=== PATIENT | female | born 1940 | race Caucasian/White ===

== ENCOUNTER → 2016-10-29 | Outpatient (CLI) | payer MEDICARE, MEDICAID ==
[2016-10-29 13:53] LABS: ARTERIAL BLOOD BASE EXCESS 4.9 mmol/L; ARTERIAL BLOOD O2 SATURATION 81.7 % (94-98)
--- NOTE | 2016-10-30 08:27 | INCOMPLETE PFT LETTER ---
On 10/29/16, PAN BUTLER : 1940 presented to [facility] for a Pulmonary Function Test. Attempts were made to perform the test but the patient was unable to perform adequately due to patient unable to sit upright because of broken leg. ABG was drawn. Patient short of breath and unable to complete study. Please feel free to contact us for any further questions and to reschedule if desired. Sincerely, Respiratory Care Department [facility]
== END ==
LOC: RT 12:40
PROVIDERS: ATTEND Family Medicine Geriatric Medicine
DX: J44.9 Chronic obstructive pulmonary disease, unspecified (principal)
CPT/HCPCS: 36600; 82803; 94760

== ENCOUNTER 2017-11-23 05:06 | Inpatient (IN) | payer MEDICARE, MEDICAID ==
--- NOTE | 2017-11-23 05:30 | ER Document Report ---
ED Medical Screen (RME) - General Stated Complaint: SHORTNESS OF BREATH Time Seen by Provider: 11/23/17 05:18 Mode of Arrival: Medic Information source: Patient, Transfer Record Notes: Patient presents as a transfer from the [place] [facility] with report of low oxygen saturation of 80%. Patient states she has had a cough for the past month. Patient does have a history of asthma and COPD. She reports recent decrease in appetite. Patient was given nebulizer treatment and Solu-Medrol per EMS. Patient oxygen saturation in the the lower 90s on 3 L of oxygen at this time. hx: CVA with left-sided weakness, depression, diabetes, COPD, asthma I have greeted and performed a rapid initial assessment of this patient. A comprehensive ED assessment and evaluation of the patient, analysis of test results and completion of the medical decision making process will be conducted by additional ED providers. TRAVEL OUTSIDE OF THE [place] IN LAST 30 DAYS: No - Related Data Allergies/Adverse Reactions: Penicillins Allergy (Verified 01/31/15 18:27) Past Medical History - Past Medical History Cardiac Medical History: Reports: Hx Atrial Fibrillation - paroxysmal reportedly , Hx Hypercholesterolemia, Hx Hypertension Pulmonary Medical History: Reports: Hx Asthma, Hx COPD Neurological Medical History: Reports: Hx Cerebrovascular Accident - Left-sided weakness Endocrine Medical History: Reports: Hx Diabetes Mellitus Type 2 GI Medical History: Reports: Hx Gastroesophageal Reflux Disease Musculoskeltal Medical History: Reports Hx Musculoskeletal Trauma Psychiatric Medical History: Reports: Hx Anxiety, Hx Dementia, Hx Depression, Hx Schizophrenia Traumatic Medical History: Reports: Hx Fractures Past Surgical History: Reports: Hx Appendectomy, Hx Cholecystectomy, Hx Genitourinary Surgery - Bladder mesh, Hx Gynecologic Surgery - vaginal prolapse , Hx Tonsillectomy - Immunizations Hx Diphtheria, Pertussis, Tetanus Vaccination: Yes Physical Exam - Respiratory Respiratory status: No respiratory distress Breath sounds: Nonproductive cough, Rhonchi, Wheezing
[2017-11-23] MEDS: ALBUTEROL SULFATE 0.083% NEB 2.5 MG/3 ML AMPUL NEB SCH ×2 (05:47→06:27)
[2017-11-23] MEDS ORDERED: IPRATROPIUM/ALBUTEROL 0.5-2.5 MG/3 ML AMPUL NEB ONE (06:10)
[2017-11-23] MEDS ORDERED: METHYLPREDNISOLONE INJ 40 MG/1 ML SDV IV ONE (06:10)
--- NOTE | 2017-11-23 06:17 | ER Document Report ---
ED General - General Stated Complaint: SHORTNESS OF BREATH Time Seen by Provider: 11/23/17 05:18 Mode of Arrival: Medic Notes: 77-year-old lady with a history of CHF hypertension chronic respiratory failure and recent admissions for acute respiratory failure in the setting of pneumonia living at [facility] presenting with cough shortness of breath and body aches. This is been going on for 2 days. Her baseline oxygen of 2.5 L with a insufficient to maintain her saturations and so she was sent to the ED. She denies fever chills. There is flu rampant at her facility and she is currently taking empiric/prophylactic Tamiflu. TRAVEL OUTSIDE OF THE [place] IN LAST 30 DAYS: No - Related Data Allergies/Adverse Reactions: Penicillins Allergy (Verified 01/31/15 18:27) Past Medical History - General Information source: Patient, Transfer Record - Social History Smoking Status: Former Smoker Family History: Reviewed & Not Pertinent - Past Medical History Cardiac Medical History: Reports: Hx Atrial Fibrillation - paroxysmal reportedly , Hx Hypercholesterolemia, Hx Hypertension Pulmonary Medical History: Reports: Hx Asthma, Hx COPD Neurological Medical History: Reports: Hx Cerebrovascular Accident - Left-sided weakness Endocrine Medical History: Reports: Hx Diabetes Mellitus Type 2 GI Medical History: Reports: Hx Gastroesophageal Reflux Disease Musculoskeltal Medical History: Reports Hx Musculoskeletal Trauma Psychiatric Medical History: Reports: Hx Anxiety, Hx Dementia, Hx Depression, Hx Schizophrenia Traumatic Medical History: Reports: Hx Fractures Past Surgical History: Reports: Hx Appendectomy, Hx Cholecystectomy, Hx Genitourinary Surgery - Bladder mesh, Hx Gynecologic Surgery - vaginal prolapse , Hx Tonsillectomy - Immunizations Hx Diphtheria, Pertussis, Tetanus Vaccination: Yes Hx Pneumococcal Vaccination: 10/26/13 Review of Systems - Review of Systems Notes: REVIEW OF SYSTEMS GEN: Was weakness ENT: Denies sore throat, nasal discharge, ear pain EYES: Denies blurry vision, eye pain, discharge CV: Denies chest pain, palpitations, edema RESP: Productive cough wheezing and shortness of breath GI: Denies abdominal pain, nausea, vomiting, diarrhea MSK: Denies joint pain/swelling, edema, SKIN: Denies rash, skin lesions LYMPH: Denies swollen glands/lymph nodes NEURO: Denies headache, focal weakness or numbness, dizziness PSYCH: Denies depression, suicidal or homicidal ideation PHYSICAL EXAMINATION General: Obese. Chronically ill. Mild distress. Head: Atraumatic, normocephalic ENT: Mouth normal, oropharynx moist, no exudates or tonsillar enlargement Eyes: Conjunctiva normal, pupils equal, lids normal Neck: No JVD, supple, no guarding CVS: Normal rate, regular rhythm, no murmurs Resp: Mild respiratory distress. Saturation 89 on Venturi mask. Wheezes and rhonchi in all lung more. GI: Nondistended, soft, no tenderness to palpation, no rebound or guarding Ext: No deformities, leg obesity with chronic appearing edema, normal range of motion in upper and lower ext Back: No CVA or midline TTP Skin: No rash, warm Lymphatic: No lymphadeopathy noted Neuro: Awake, alert. Face symmetric. GCS 15. Physical Exam - Vital signs Vitals: Pulse Ox 94 11/23/17 05:13 Course - Re-evaluation Re-evalutation: 11/23/17 06:15 77-year-old female with chronic respiratory failure presents with worsening oxygen saturations cough and shortness of breath concerning for pneumonia, flu, both, sepsis, COPD exacerbation. Patient placed on Venturi mask. Seen by me soon after arrival to the room and rapid medical eval by physician central supply assistant. Sepsis order had been placed. I will add antibiotics. I will add DuoNeb and steroids. Her blood pressure and heart rate are stable. Her ECG does not show acute changes. 11/23/17 06:16 Please note: The patient is unaware of her CODE STATUS however based on previous documentation for admission she was DNR. This was after discussion with her son. In looking at her paperwork from her facility there is not a CODE STATUS documented. After chest x-ray will likely proceed with BiPAP for respiratory support. 11/23/17 06:44 Patient reassessed. Still hypoxic. Her VBG shows CO2 in the 90s range. Her chest x-ray looks like slight CHF although there is no definite infiltrate or effusion. I will place her on BiPAP, antibiotics have been ordered, and admit to the hospitalist for presumable early pneumonia/COPD plus or minus influenza. 11/23/17 07:26 Flu swab pending. Better on BiPAP. Admitted spoke with Dr. Woodward. IMCU. - Vital Signs Vital signs: Temp Pulse Resp BP Pulse Ox 98.5 F 76 16 150/57 H 94 11/23/17 05:26 11/23/17 05:26 11/23/17 07:00 11/23/17 05:37 11/23/17 07:00 - Laboratory Result Diagrams: 11/23/17 06:15 11/23/17 06:15 Laboratory results interpreted by me: 11/23/17 11/23/17 11/23/17 06:15 06:15 06:15 MCV 99 H MCHC 31.9 L RDW 14.2 H Seg Neutrophils % 79.8 H Lymphocytes % 12.5 L VBG pH 7.27 L VBG pCO2 93.4 H* VBG HCO3 42.1 H Chloride 96 L Carbon Dioxide 37 H Creatinine 0.48 L Glucose 144 H Creatine Kinase < 20 L Total Protein 6.0 L Albumin 3.3 L - EKG Interpretation by Me EKG shows normal: Sinus rhythm Rate: Normal Rhythm: NSR [place]/QRS: RBBB When compared to previous EKG there are: No significant change Critical Care Note - Critical Care Note Total time excluding time spent on procedures (mins): 32 - The above patient is critically ill. Not including procedures, but including direct re-evaluations, speaking with patient and/or consultants, interpreting results, and documenting , I spent the total amount of minute listed listed above on critical care time Discharge - Discharge Clinical Impression: Acute respiratory failure Qualifiers: Respiratory failure complication: hypercapnia Qualified Code(s): J96.02 - Acute respiratory failure with hypercapnia Condition: Critical Disposition: ADMITTED INPATIENT Admitting Provider: Hospitalist Unit Admitted: [facility]
[2017-11-23] MEDS ORDERED: VANCOMYCIN HCL INJ 1000 MG VIAL IV ONE (06:18)
[2017-11-23] MEDS ORDERED: OSELTAMIVIR PHOSPHATE 75 MG CAPSULE PO ONE (06:18)
[2017-11-23 06:28] LABS: ABSOLUTE LYMPHOCYTES (AUTO) 0.5 10^3/uL (0.5-4.7); ABSOLUTE MONOCYTES (AUTO) 0.3 10^3/uL (0.1-1.4); ABSOLUTE NEUT (AUTO) 3.2 10^3/uL (1.7-8.2); BASOPHILS % (AUTO) 0.3 % (0-2); EOSINOPHILS % (AUTO) 0.1 % (0-6); HEMATOCRIT 44.8 % (36.0-47.0); HEMOGLOBIN 14.3 g/dL (12.0-15.5); LYMPHOCYTES % (AUTO) 12.5 % (13-45); MEAN CORPUSCULAR HEMOGLOBIN 31.5 pg (27.0-33.4); MEAN CORPUSCULAR HGB CONC 31.9 g/dL (32.0-36.0); MEAN CORPUSCULAR VOLUME 99 fl (80-97); MONOCYTES % (AUTO) 7.3 % (3-13); PLATELET COUNT 163 10^3/uL (150-450); RED BLOOD COUNT 4.54 10^6/uL (3.72-5.28); RED CELL DISTRIBUTION WIDTH 14.2 % (11.5-14.0); SEGMENTED NEUTROPHILS % (AUTO) 79.8 % (42-78); TOTAL CELLS COUNTED % (AUTO) 100 %; VENOUS BLOOD HCO3 42.1 mmol/L (20-32); VENOUS BLOOD PH 7.27 (7.30-7.42)
[2017-11-23 06:34] LABS: VENOUS BLOOD PCO2 93.4 mmHg (35-63)
[2017-11-23 06:50] LABS: NT PRO BNP 79 pg/mL (<450)
[2017-11-23 06:52] LABS: ALANINE AMINOTRANSFERASE 26 U/L (9-52); ALBUMIN 3.3 g/dL (3.5-5.0); ALKALINE PHOSPHATASE 72 U/L (38-126); ANION GAP 6 (5-19); ASPARTATE AMINO TRANSFERASE 25 U/L (14-36); BILIRUBIN,DIRECT 0.3 mg/dL (0.0-0.4); BILIRUBIN,TOTAL 0.5 mg/dL (0.2-1.3); BLOOD UREA NITROGEN 15 mg/dL (7-20); CALCIUM 9.3 mg/dL (8.4-10.2); CARBON DIOXIDE 37 mmol/L (22-30); CHLORIDE 96 mmol/L (98-107); GLUCOSE 144 mg/dL (75-110); MAGNESIUM 1.9 mg/dL (1.6-2.3); POTASSIUM 4.2 mmol/L (3.6-5.0); SODIUM 139.2 mmol/L (137-145)
--- NOTE | 2017-11-23 06:52 | RADIOLOGY REPORT (SQ) ---
EXAM DESCRIPTION: CHEST SINGLE VIEW CLINICAL HISTORY: cough COMPARISON: 03/24/2015 FINDINGS: Single frontal view of the chest. Atherosclerotic calcification aortic arch. Cardiomegaly. Linear right basilar opacities likely related to subsegmental atelectasis. Blunting of the left costophrenic angle may represent small left pleural effusion. Leads overlie the chest. No new osseous abnormalities. Upper abdominal soft tissues are unremarkable. IMPRESSION: 1. Cardiomegaly with possible small left pleural effusion. 2. Streaky right basilar opacities may be related to subsegmental atelectasis however developing pneumonic process could produce a similar appearance. Continued radiographic follow-up to resolution recommended.
[2017-11-23 06:53] LABS: CREATINE KINASE < 20 U/L (30-135)
[2017-11-23 06:55] LABS: CREATINE KINASE MB < 0.22 ng/mL (<4.55); TROPONIN I < 0.012 ng/mL
[2017-11-23] MEDS ORDERED: LEVOFLOXACIN 750 MG/D5W RTU 750 MG/150 ML RTUPB IV SCH (07:00)
[2017-11-23] MEDS ORDERED: DEXTROSE 50%-WATER 25 GM/50 ML DISP.SYRIN IV PRN ×2 (09:39)
[2017-11-23] MEDS ORDERED: ONDANSETRON 4 MG TAB.RAPDIS PO PRN ×2 (09:39→10:33)
[2017-11-23] MEDS ORDERED: ONDANSETRON HCL INJ/PF 4 MG/2 ML SDV IV PRN (09:39)
[2017-11-23] MEDS ORDERED: DEXTROSE 40% GEL 15 GM TUBE PO PRN ×2 (09:39)
[2017-11-23] MEDS ORDERED: GLUCAGON,HUMAN RECOMB 1 MG INJ SUBCUT PRN (09:39)
--- NOTE | 2017-11-23 10:08 | PDOC H&P ---
History of Present Illness Admission Date/PCP: 11/23/17 07:40 SAMMI VAZQUEZ MD Patient complains of: Shortness of breath. History of Present Illness: PAN BUTLER is a 77 year old female resents to the emergency room from [place] with complaint of cough and shortness of breath. Patient reports that she has been sick for the last 2-3 days. Patient is not able to give very good history however the ED states that patient was not able to maintain sats in the emergency department and they had to place her on BiPAP. ED also reported at [place] majority of the patients are receiving Tamiflu for the flu or for flu prevention. Patient did state that she is having body aches. Past Medical History Cardiac Medical History: Reports: Atrial Fibrillation - paroxysmal reportedly, Hyperlipidema, Hypertension Pulmonary Medical History: Reports: Asthma, Chronic Obstructive Pulmonary Disease (COPD) Endocrine Medical History: Reports: Diabetes Mellitus Type 2 GI Medical History: Reports: Gastroesophageal Reflux Disease Psychiatric Medical History: Reports: Dementia, Depression Past Surgical History Past Surgical History: Reports: Appendectomy, Cholecystectomy, Tonsillectomy Social History Smoking Status: Former Smoker Frequency of Alcohol Use: None Hx Recreational Drug Use: No Hx Prescription Drug Abuse: No Family History Family History: Reviewed & Not Pertinent Parental Family History Reviewed: No Children Family History Reviewed: No Sibling(s) Family History Reviewed.: No Medication/Allergy Home Medications: Acetaminophen [Tylenol Extra Strength] 1,000 mg PO Q8HP PRN 11/23/17 Amiodarone HCl [Cordarone 200 mg Tablet] 200 mg PO DAILY 11/23/17 Apixaban [Eliquis 2.5 mg Tablet] 2.5 mg PO Q12 11/23/17 Atorvastatin Calcium [Lipitor 20 mg Tablet] 20 mg PO QHS 11/23/17 Cyanocobalamin (Vitamin B-12) [Vitamin B12] 1,000 mcg PO DAILY 11/23/17 Docusate Sodium [Colace 100 mg Capsule] 100 mg PO BID 11/23/17 Donepezil HCl [Aricept 5 mg Tablet] 10 mg PO QHS 11/23/17 Gabapentin [Neurontin 100 mg Capsule] 100 mg PO Q8 11/23/17 Hydrocodone/Acetaminophen [[place] 10-325 mg Tablet] 1 tab PO Q4HP PRN 11/23/17 Ipratropium/Albuterol Sulfate [Duoneb 3 ml Ampul] 3 ml NEB RTQ6HP PRN 11/23/17 Lorazepam [Ativan 0.5 mg Tablet] 0.5 mg PO Q6HP PRN 11/23/17 Magnesium Oxide [Mag-Ox 400 mg Tablet] 400 mg PO Q8 11/23/17 Multivitamin [Multivitamins] 1 each PO DAILY 11/23/17 Olopatadine HCl [Pataday] 2.5 ml OU DAILY 11/23/17 Ondansetron HCl [Zofran 4 mg Tablet] 1 tab PO Q8HP PRN 11/23/17 Oseltamivir Phosphate [Tamiflu 75 mg Capsule] 75 mg PO DAILY 11/23/17 Pantoprazole Sodium [Protonix] 40 mg PO DAILY 11/23/17 Quetiapine Fumarate [Seroquel 25 mg Tablet] 25 mg PO QHS 11/23/17 Sennosides [Senna] 8.6 mg PO QHS 11/23/17 Allergies/Adverse Reactions: Penicillins Allergy (Verified 01/31/15 18:27) Review of Systems ROS unobtainable: Other - Patient very weak therefore review of symptoms is limited Constitutional: PRESENT: chills, fever(s), weakness Eyes: ABSENT: visual disturbances Respiratory: PRESENT: cough, dyspnea Gastrointestinal: ABSENT: abdominal pain, constipation, diarrhea, hematemesis, hematochezia, nausea, vomiting Genitourinary: ABSENT: dysuria, hematuria Musculoskeletal: ABSENT: joint swelling Physical Exam Vital Signs: Temp Pulse Resp BP Pulse Ox 98.5 F 76 16 150/57 H 94 11/23/17 05:26 11/23/17 05:26 11/23/17 07:00 11/23/17 05:37 11/23/17 07:00 General appearance: PRESENT: morbidly obese, well-developed, well-nourished, other - BiPap in place patient will open eyes when stimulated Head exam: PRESENT: atraumatic, normocephalic Eye exam: PRESENT: conjunctiva pink, EOMI. ABSENT: scleral icterus Ear exam: PRESENT: normal external ear exam Mouth exam: PRESENT: other - BiPAP in place Neck exam: ABSENT: carotid bruit, JVD, lymphadenopathy, thyromegaly Respiratory exam: PRESENT: accessory muscle use, decreased breath sounds, prolonged expiratory phas, wheezes. ABSENT: rales, rhonchi Cardiovascular exam: PRESENT: RRR. ABSENT: diastolic murmur, rubs, systolic murmur Pulses: PRESENT: normal dorsalis pedis pul Vascular exam: PRESENT: normal capillary refill GI/Abdominal exam: PRESENT: normal bowel sounds, soft. ABSENT: distended, guarding, mass, organolmegaly, rebound, tenderness Rectal exam: PRESENT: deferred Extremities exam: PRESENT: +2 edema - +2 pitting edema of left leg, +1 pitting edema of right leg Neurological exam: PRESENT: awake, oriented to person, oriented to place, oriented to time, oriented to situation, CN II-XII grossly intact Psychiatric exam: PRESENT: appropriate affect, normal mood. ABSENT: homicidal ideation, suicidal ideation Skin exam: PRESENT: dry, intact, warm. ABSENT: cyanosis, rash Results Impressions: Chest X-Ray 11/23/17 05:27 IMPRESSION: 1. Cardiomegaly with possible small left pleural effusion. 2. Streaky right basilar opacities may be related to subsegmental atelectasis however developing pneumonic process could produce a similar appearance. Continued radiographic follow-up to resolution recommended. Assessment & Plan - Diagnosis (1) Acute respiratory failure Qualifiers: Respiratory failure complication: hypercapnia Qualified Code(s): J96.02 - Acute respiratory failure with hypercapnia Is this a current diagnosis for this admission?: Yes Plan: Most likely secondary to viral illness with component of COPD: We will place patient on steroids, breathing treatments, and cefepime. Will obtain CT of chest to evaluate for pneumonia given the fact that chest x-ray is suggesting that patient could have possible infiltrate. (2) Atrial fibrillation Qualifiers: Atrial fibrillation type: chronic Qualified Code(s): I48.2 - Chronic atrial fibrillation Is this a current diagnosis for this admission?: No Plan: We will continue patient's home medications. (3) COPD exacerbation Is this a current diagnosis for this admission?: Yes Plan: We will place on breathing treatments, steroids, and antibiotics. Will obtain chest x-ray to evaluate for possible pneumonia given the report of chest x-ray demonstrating possible infiltrate. Of note infiltrate still could represent viral illness. Will screen patient for flu (4) Pneumonia Qualifiers: Laterality: right Is this a current diagnosis for this admission?: Yes Plan: We will place patient on cefepime for now. Will screen for MRSA. Aware the patient is coming from [place] which would place her at higher risk for nosocomial acquired infections (5) DVT prophylaxis Is this a current diagnosis for this admission?: Yes Plan: SCDs - Time Time Spent: 30 to 50 Minutes
[2017-11-23] MEDS ORDERED: (PENDING PHARMACY ID) (Acetaminophen [Tylenol Extra Strength] 1,000 MG) PO PRN (10:13)
[2017-11-23] MEDS: FAMOTIDINE 20 MG TABLET PO SCH ×2 (10:18→23:16)
[2017-11-23] MEDS ORDERED: ACETAMINOPHEN 325 MG TABLET PO PRN (10:22)
--- NOTE | 2017-11-23 12:52 | EKG REPORT ---
SEVERITY:- ABNORMAL ECG - SINUS RHYTHM RIGHT BUNDLE BRANCH BLOCK : Confirmed by: Crow Kaminski MD 23-Nov-2017 12:51:29
[2017-11-23] MEDS: MAGNESIUM OXIDE 400 MG TABLET PO SCH ×2 (13:49→23:18)
[2017-11-23] MEDS: GABAPENTIN 100 MG CAPSULE PO SCH ×2 (13:49→23:18)
[2017-11-23] MEDS: METHYLPREDNISOLONE INJ 125 MG/2 ML SDV IV SCH ×3 (13:50→23:19)
[2017-11-23 14:02] LABS: ARTERIAL BLOOD BASE EXCESS 12.1 mmol/L; ARTERIAL BLOOD FIO2 15L; ARTERIAL BLOOD H2CO3 2.66 mmol/L (1.05-1.35); ARTERIAL BLOOD HCO3 42.5 mmol/L (20-26); ARTERIAL BLOOD O2 SATURATION 98.2 % (94-98); ARTERIAL BLOOD PO2 134.8 mmHg (80-100); ARTERIAL BLOOD TOTAL CO2 45.2 mmol/L (21-25)
[2017-11-23 14:06] LABS: ARTERIAL BLOOD PCO2 88.4 mmHg (35-45)
[2017-11-23] MEDS: IPRATROPIUM/ALBUTEROL 0.5-2.5 MG/3 ML AMPUL NEB SCH ×2 (14:26→20:28)
--- NOTE | 2017-11-23 14:35 | RADIOLOGY REPORT (SQ) ---
EXAM DESCRIPTION: CT CHEST WITHOUT COMPLETED DATE/TIME: 11/23/2017 12:54 pm REASON FOR STUDY: Concern for Pneumonia COMPARISON: None. TECHNIQUE: CT scan performed of the chest without intravenous contrast. Images reviewed with lung, soft tissue and bone windows. Reconstructed coronal and sagittal MPR images reviewed. All images st ored on PACS. All CT scanners at this facility use dose modulation, iterative reconstruction, and/or weight based d osing when appropriate to reduce radiation dose to as low as reasonably achievable (ALARA). [facility]: Dose Right [facility]: CareDose [facility]: Dose Right [facility]: Teradose 4D [facility]: [employer] RADIATION DOSE: CT Rad equipment meets quality standard of care and radiation dose reduction techniq ues were employed. CTDIvol: 21.0 mGy. DLP: 787 mGy-cm. mGy. LIMITATIONS: No technical limitations. FINDINGS: LUNGS AND PLEURA: Subsegmental airspace disease in the lingula and left lower lobe. Trace left pleural effusion. HILAR AND MEDIASTINAL STRUCTURES: No identified masses or abnormal nodes. No obvious aneurysm. HEART AND VASCULAR STRUCTURES: No aneurysm. No pericardial effusion. UPPER ABDOMEN: No significant findings. Limited exam. THYROID AND OTHER SOFT TISSUES: No masses. No adenopathy. BONES: No significant finding. HARDWARE: None in the chest. OTHER: No other significant findings. IMPRESSION: Left lower lobe and lingular pneumonia. TECHNICAL DOCUMENTATION: JOB ID: [id number] Quality ID # [id number]: Final reports with documentation of one or more dose reduction techniques (e.g., Au tomated exposure control, adjustment of the mA and/or kV according to patient size, use of iterative reconstruction technique) 2010 [email or web address]- All Rights Reserved
[2017-11-23 15:51] LABS: APPEARANCE,URINE CLOUDY; BILIRUBIN,URINE NEGATIVE (NEGATIVE); COLOR,URINE YELLOW; GLUCOSE, URINE NEGATIVE (NEGATIVE); KETONES,URINE NEGATIVE (NEGATIVE); LEUKOCYTE ESTERASE,URINE NEGATIVE (NEGATIVE); NITRITE,URINE NEGATIVE (NEGATIVE); PROTEIN,URINE 30 mg/dL (NEGATIVE); URINE SPECIFIC GRAVITY 1.029; UROBILINOGEN,URINE NEGATIVE mg/dL (<2.0)
[2017-11-23 16:02] LABS: A TYPE INFLUENZA AG NEGATIVE (NEGATIVE); B INFLUENZA AG NEGATIVE (NEGATIVE)
[2017-11-23] MEDS: OSELTAMIVIR PHOSPHATE 6 MG/1 ML SUSP 60 ML PO SCH (17:40)
[2017-11-23] MEDS: DOCUSATE SODIUM 100 MG CAPSULE PO SCH (17:40)
[2017-11-23] MEDS ORDERED: OSELTAMIVIR PHOSPHATE 75 MG CAPSULE PO SCH (18:00)
[2017-11-23] MEDS ORDERED: (PENDING PHARMACY ID) (Sennosides [Senna] 8.6 MG) PO SCH (22:00)
[2017-11-23 23:16] LABS: ARTERIAL BLOOD BASE EXCESS 12.3 mmol/L; ARTERIAL BLOOD H2CO3 1.74 mmol/L (1.05-1.35); ARTERIAL BLOOD HCO3 38.8 mmol/L (20-26); ARTERIAL BLOOD O2 SATURATION 90.3 % (94-98); ARTERIAL BLOOD PCO2 57.9 mmHg (35-45); ARTERIAL BLOOD PH 7.44 (7.35-7.45); ARTERIAL BLOOD PO2 57.5 mmHg (80-100); ARTERIAL BLOOD TOTAL CO2 40.6 mmol/L (21-25)
[2017-11-23] MEDS: ATORVASTATIN CALCIUM 20 MG TABLET PO SCH (23:16)
[2017-11-23] MEDS ORDERED: CEFEPIME 1 GM/D5W RTU 1 GM/50 ML RTUPB IV ONE (23:16)
[2017-11-23 23:17] LABS: ARTERIAL BLOOD FIO2 50%
[2017-11-23] MEDS: DONEPEZIL HCL 5 MG TABLET PO SCH (23:17)
[2017-11-23] MEDS: SENNOSIDES/DOCUSATE 8.6-50 MG 1 EACH TABLET PO SCH (23:17)
[2017-11-23] MEDS: QUETIAPINE FUMARATE 25 MG TABLET PO SCH (23:17)
[2017-11-23] MEDS: APIXABAN 2.5 MG TABLET PO SCH (23:21)
[2017-11-24] MEDS: HYDROCODONE/ACETAMINOPHEN 10-325 MG TABLET PO PRN ×2 (00:09→22:04)
[2017-11-24] MEDS ORDERED: LORAZEPAM 0.5 MG TABLET PO PRN (00:20)
[2017-11-24] MEDS: CEFEPIME 1 GM/D5W RTU 1 GM/50 ML RTUPB IV SCH ×3 (00:31→22:03)
[2017-11-24] MEDS: IPRATROPIUM/ALBUTEROL 0.5-2.5 MG/3 ML AMPUL NEB SCH ×4 (02:00→20:24)
[2017-11-24] MEDS: ACETAMINOPHEN 325 MG TABLET PO PRN (02:05)
[2017-11-24] MEDS: MAGNESIUM OXIDE 400 MG TABLET PO SCH ×3 (05:59→22:03)
[2017-11-24] MEDS: METHYLPREDNISOLONE INJ 125 MG/2 ML SDV IV SCH ×3 (05:59→18:08)
[2017-11-24] MEDS: GABAPENTIN 100 MG CAPSULE PO SCH ×3 (05:59→22:03)
[2017-11-24 06:17] LABS: ABSOLUTE LYMPHOCYTES (AUTO) 0.3 10^3/uL (0.5-4.7); ABSOLUTE MONOCYTES (AUTO) 0.2 10^3/uL (0.1-1.4); ABSOLUTE NEUT (AUTO) 3.3 10^3/uL (1.7-8.2); BASOPHILS % (AUTO) 0.1 % (0-2); HEMATOCRIT 40.4 % (36.0-47.0); HEMOGLOBIN 13.2 g/dL (12.0-15.5); LYMPHOCYTES % (AUTO) 8.3 % (13-45); MEAN CORPUSCULAR HEMOGLOBIN 31.6 pg (27.0-33.4); MEAN CORPUSCULAR HGB CONC 32.7 g/dL (32.0-36.0); MEAN CORPUSCULAR VOLUME 97 fl (80-97); MONOCYTES % (AUTO) 4.4 % (3-13); PLATELET COUNT 169 10^3/uL (150-450); RED BLOOD COUNT 4.18 10^6/uL (3.72-5.28); RED CELL DISTRIBUTION WIDTH 13.9 % (11.5-14.0); SEGMENTED NEUTROPHILS % (AUTO) 87.2 % (42-78); TOTAL CELLS COUNTED % (AUTO) 100 %; WHITE BLOOD COUNT 3.8 10^3/uL (4.0-10.5)
[2017-11-24 06:33] LABS: ALANINE AMINOTRANSFERASE 26 U/L (9-52); ALBUMIN 3.2 g/dL (3.5-5.0); ALKALINE PHOSPHATASE 58 U/L (38-126); ASPARTATE AMINO TRANSFERASE 30 U/L (14-36); BILIRUBIN,DIRECT 0.3 mg/dL (0.0-0.4); BILIRUBIN,TOTAL 0.5 mg/dL (0.2-1.3); BLOOD UREA NITROGEN 20 mg/dL (7-20); CALCIUM 9.5 mg/dL (8.4-10.2); CHLORIDE 95 mmol/L (98-107); GLUCOSE 163 mg/dL (75-110); TOTAL PROTEIN 6.2 g/dL (6.3-8.2)
[2017-11-24 06:47] LABS: ANION GAP 5 (5-19); CARBON DIOXIDE 37 mmol/L (22-30); FREE T4 (FREE THYROXINE) 3.08 ng/dL (0.78-2.19); POTASSIUM 4.5 mmol/L (3.6-5.0); SODIUM 136.9 mmol/L (137-145)
[2017-11-24 07:05] LABS: THYROID STIMULATING HORMONE < 0.01 uIU/mL (0.47-4.68)
[2017-11-24] MEDS: MULTIVITAMIN TABLET PO SCH (09:26)
[2017-11-24] MEDS: FAMOTIDINE 20 MG TABLET PO SCH ×2 (09:26→22:03)
[2017-11-24] MEDS: DOCUSATE SODIUM 100 MG CAPSULE PO SCH ×2 (09:26→17:42)
[2017-11-24] MEDS: CYANOCOBALAMIN (VITAMIN B-12) 1,000 MCG TABLET PO SCH (09:26)
[2017-11-24] MEDS: OSELTAMIVIR PHOSPHATE 6 MG/1 ML SUSP 60 ML PO SCH ×2 (09:27→18:08)
[2017-11-24] MEDS: APIXABAN 2.5 MG TABLET PO SCH ×2 (09:27→22:12)
[2017-11-24] MEDS ORDERED: (PENDING PHARMACY ID) (Cyanocobalamin (Vitamin B-12) [Vitamin B12] 1,000 MCG) PO SCH (10:00)
[2017-11-24] MEDS ORDERED: AMIODARONE HCL 200 MG TABLET PO SCH (10:00)
[2017-11-24] MEDS ORDERED: (PENDING PHARMACY ID) (Olopatadine Hcl [Pataday] 2.5 ML) OU SCH (10:00)
--- NOTE | 2017-11-24 12:59 | EKG REPORT ---
SEVERITY:- ABNORMAL ECG - SINUS RHYTHM NONSPECIFIC INTRAVENTRICULAR CONDUCTION DELAY : Confirmed by: Crow Kaminski MD 24-Nov-2017 12:58:56
[2017-11-24] MEDS ORDERED: DEXTROSE 40% GEL 15 GM TUBE PO PRN ×2 (17:05)
[2017-11-24] MEDS ORDERED: GLUCAGON,HUMAN RECOMB 1 MG INJ IM PRN (17:05)
[2017-11-24] MEDS ORDERED: DEXTROSE 50%-WATER 25 GM/50 ML DISP.SYRIN IV PRN ×2 (17:05)
--- NOTE | 2017-11-24 17:06 | PDOC PROGRESS REPORT ---
Subjective Progress Note for:: 11/24/17 Subjective:: The patient is a 77-year-old female with a past medical history of atrial fibrillation, hyperlipidemia, hypertension, asthma, COPD, type 2 diabetes mellitus, GERD, dementia, and depression who is a long-term resident of [facility] who was admitted yesterday for acute respiratory failure likely secondary to viral illness in the setting of COPD. The patient is seen on morning rounds. She is found resting in bed comfortably on room air. Per nursing she is only been off BiPAP for a few minutes so that she could eat. Otherwise, she has remained on BiPAP overnight with relief of her dyspnea. She denies fever, chills, dyspnea at present, orthopnea, chest pain and palpitations. She does ask when she will be well enough to return home and otherwise has no questions or concerns at this time. Reason For Visit: ACUTE ON CHRONIC HYPOXIC RESPIRATORY FAILURE Physical Exam Vital Signs: Temp Pulse Resp BP Pulse Ox 97.6 F 70 20 143/62 H 93 11/24/17 12:09 11/24/17 14:00 11/24/17 13:37 11/24/17 12:09 11/24/17 12:09 Intake & Output 11/23/17 11/24/17 11/25/17 06:59 06:59 06:59 Intake Total 12 0 Output Total 101 125 Balance -89 -125 General appearance: PRESENT: no acute distress, cooperative, obese, well- developed, well-nourished Head exam: PRESENT: atraumatic, normocephalic Eye exam: PRESENT: conjunctiva pink, EOMI, PERRLA. ABSENT: scleral icterus Ear exam: PRESENT: normal external ear exam Mouth exam: PRESENT: moist, tongue midline Teeth exam: PRESENT: poor dentation Neck exam: ABSENT: carotid bruit, JVD, lymphadenopathy, thyromegaly Respiratory exam: PRESENT: decreased breath sounds - Bibasilar, prolonged expiratory phas, rhonchi, wheezes - Throughout. ABSENT: rales Cardiovascular exam: PRESENT: RRR, +S1, +S2. ABSENT: diastolic murmur, rubs, systolic murmur Pulses: PRESENT: normal dorsalis pedis pul Vascular exam: PRESENT: normal capillary refill GI/Abdominal exam: PRESENT: normal bowel sounds, soft. ABSENT: distended, guarding, mass, organolmegaly, rebound, tenderness Rectal exam: PRESENT: deferred Extremities exam: PRESENT: full ROM. ABSENT: calf tenderness, clubbing, pedal edema Neurological exam: PRESENT: alert, awake, oriented to person, oriented to place , oriented to time, oriented to situation, CN II-XII grossly intact. ABSENT: motor sensory deficit Psychiatric exam: PRESENT: appropriate affect, normal mood. ABSENT: homicidal ideation, suicidal ideation Skin exam: PRESENT: dry, intact, warm. ABSENT: cyanosis, rash Results Laboratory Results: 11/24/17 05:09 11/24/17 05:09 11/23/17 11/24/17 11/24/17 23:05 05:09 05:09 WBC 3.8 L RBC 4.18 Hgb 13.2 Hct 40.4 MCV 97 MCH 31.6 MCHC 32.7 RDW 13.9 Plt Count 169 Seg Neutrophils % 87.2 H Lymphocytes % 8.3 L Monocytes % 4.4 Eosinophils % 0.0 Basophils % 0.1 Absolute Neutrophils 3.3 Absolute Lymphocytes 0.3 L Absolute Monocytes 0.2 Absolute Eosinophils 0.0 Absolute Basophils 0.0 Carbonic Acid 1.74 H HCO3/H2CO3 Ratio 22:1 ABG pH 7.44 ABG pCO2 57.9 H ABG pO2 57.5 L ABG HCO3 38.8 H ABG O2 Saturation 90.3 L ABG Base Excess 12.3 FiO2 50% Sodium 136.9 L Potassium 4.5 Chloride 95 L Carbon Dioxide 37 H Anion Gap 5 BUN 20 Creatinine 0.47 L Est GFR ( Amer) > 60 Est GFR (Non-Af Amer) > 60 Glucose 163 H Calcium 9.5 Total Bilirubin 0.5 AST 30 ALT 26 Alkaline Phosphatase 58 Total Protein 6.2 L Albumin 3.2 L TSH Free T4 Free T3 pg/mL 11/24/17 11/24/17 05:09 05:09 WBC RBC Hgb Hct MCV MCH MCHC RDW Plt Count Seg Neutrophils % Lymphocytes % Monocytes % Eosinophils % Basophils % Absolute Neutrophils Absolute Lymphocytes Absolute Monocytes Absolute Eosinophils Absolute Basophils Carbonic Acid HCO3/H2CO3 Ratio ABG pH ABG pCO2 ABG pO2 ABG HCO3 ABG O2 Saturation ABG Base Excess FiO2 Sodium Potassium Chloride Carbon Dioxide Anion Gap BUN Creatinine Est GFR ( Amer) Est GFR (Non-Af Amer) Glucose Calcium Total Bilirubin AST ALT Alkaline Phosphatase Total Protein Albumin TSH < 0.01 L Free T4 3.08 H Free T3 pg/mL Cancelled 11/23/17 15:12 Catheterized Urine Urine Culture - Final 7,000 col/ml 11/23/17 15:14 Nasophary (Mrsa Only) MRSA Surveillance Culture - Final MRSA RECOVERED Impressions: Chest CT 11/23/17 00:00 IMPRESSION: Left lower lobe and lingular pneumonia. Chest X-Ray 11/23/17 05:27 IMPRESSION: 1. Cardiomegaly with possible small left pleural effusion. 2. Streaky right basilar opacities may be related to subsegmental atelectasis however developing pneumonic process could produce a similar appearance. Continued radiographic follow-up to resolution recommended. Assessment & Plan - Diagnosis (1) Acute respiratory failure Qualifiers: Respiratory failure complication: hypercapnia Qualified Code(s): J96.02 - Acute respiratory failure with hypercapnia Is this a current diagnosis for this admission?: Yes Plan: Secondary to pneumonia in the setting of COPD. The patient has been placed on BiPAP nightly and as needed with supplemental oxygen as needed to maintain O2 sats greater than 88%. Chest CT does demonstrate a left lower lobe and lingular pneumonia. Blood cultures have no growth at 24 hours and sputum cultures are pending. Influenza screening is negative. The patient has been empirically placed on cefepime. We will continue scheduled duo nebs and IV steroids. (2) Pneumonia Qualifiers: Laterality: right Is this a current diagnosis for this admission?: Yes Plan: Plan as above. (3) COPD exacerbation Is this a current diagnosis for this admission?: Yes Plan: Plan as above. (4) Hyperthyroidism Plan: The patient is noted to have a TSH of less than 0.01 with a free T4 of 3.08. Free T3 is pending. The patient has been chronically on amiodarone. Cardiology has been consulted; appreciate their evaluation recommendations. 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 Cardiology has been called; appreciate their evaluation recommendations. The patient is currently in a normal sinus rhythm. Continue chronic anticoagulation with Eliquis 2.5 every 12 hours. (6) Diabetes mellitus type 2 in obese Is this a current diagnosis for this admission?: Yes Plan: The patient is provided consistent carb diet with Accu-Cheks before meals and at bedtime and Humalog for sliding scale coverage. (7) DVT prophylaxis Is this a current diagnosis for this admission?: Yes Plan: Continue the patient's home dose Eliquis. SCDs while in bed. - Time Time Spent with patient: 25-34 minutes Medications reviewed and adjusted accordingly: Yes Anticipated discharge: SNF - Patient is a permanent resident. - Inpatient Certification Based on my medical assessment, after consideration of the patient's comorbidities, presenting symptoms, or acuity I expect that the services needed warrant INPATIENT care.: Yes I certify that my determination is in accordance with my understanding of Medicare's requirements for reasonable and necessary INPATIENT services [42 CFR 412.3e].: Yes Medical Necessity: Need Close Monitoring Due to Risk of Patient Decompensation, Need for Nebulizer Therapy and Monitoring of Response, Need for IV Antibiotics
[2017-11-24] MEDS: INSULIN LISPRO 100 UNIT/ML 3 ML VIAL SUBCUT PRN (18:06)
--- NOTE | 2017-11-24 19:24 | XCELERA REPORT ---
[address] [address] Transthoracic Echocardiogram Report Name: PAN BUTLER Age: 77 yrs Gender: Female : 1940 Patient Status: Inpatient Patient Location: [address] [place] [address] Study Date: 11/24/2017 02:40 PM Height: 64 in Weight: 250 lb BSA: 2.2 m2 Procedure: A complete two-dimensional transthoracic echocardiogram was performed (2D, M-mode, spectral and color flow Doppler). The study was technically difficult with many images being suboptimal in quality. Reason For Study: resp failure Ordering Physician: MIGUEL STONE Performed By: Rosa Macias Interpretation Summary The left ventricular ejection fraction is normal. There is mild concentric left ventricular hypertrophy. Doppler measurements suggest pseudonormalized left ventricular relaxation, which is associated with grade II/IV or mild to moderate diastolic dysfunction The left ventricle is grossly normal size. Regional wall motion abnormalities cannot be excluded due to limited visualization. The right ventricular systolic function is borderline reduced. The right ventricle is mildly dilated. The right atrium is mildly dilated. The left atrial size is normal. There is no mitral valve stenosis. There is a trace amount of mitral regurgitation There is no aortic valve stenosis No aortic regurgitation is present. The aortic root is not well visualized. The inferior vena cava appeared normal and decreased > 50% with respiration (RAP 5-10 mmHg) There is no pericardial effusion. MMode/2D Measurements & Calculations RVDd: 3.6 cm LVIDd: 4.1 cm FS: 33.5 % Ao root diam: 2.9 cm IVSd: 1.1 cm LVIDs: 2.8 cm EDV(Teich): 75.8 ml LVPWd: 1.1 cm ESV(Teich): 28.3 ml Ao root area: 6.7 cm2 EF(Teich): 62.7 % LVOT diam: 2.0 cm LVOT area: 3.2 cm2 Doppler Measurements & Calculations MV E max rodriguez: MV dec slope: Ao V2 max: LV V1 max P.5 cm/sec 411.3 cm/sec2 242.5 cm/sec 10.0 mmHg MV A max rodriguez: MV dec time: Ao max PG: LV V1 mean P.5 cm/sec 0.28 sec 23.5 mmHg 5.2 mmHg MV E/A: 0.71 Ao V2 mean: LV V1 max: 149.2 cm/sec 158.3 cm/sec Ao mean PG: LV V1 mean: 10.5 mmHg 108.2 cm/sec Ao V2 VTI: 44.3 cmLV V1 VTI: 33.3 cm GRACIELA(I,D): 2.4 cm2 GRACIELA(V,D): 2.1 cm2 SV(LVOT): 107.5 ml PA V2 max: TR max rodriguez: 122.6 cm/sec 209.1 cm/sec PA max P.0 mmHg TR max P.5 mmHg Left Ventricle The left ventricle is grossly normal size. There is mild concentric left ventricular hypertrophy. The left ventricular ejection fraction is normal. Doppler measurements suggest pseudonormalized left ventricular relaxation, which is associated with grade II/IV or mild to moderate diastolic dysfunction. Regional wall motion abnormalities cannot be excluded due to limited visualization. Right Ventricle The right ventricle is mildly dilated. The right ventricular systolic function is borderline reduced. Atria The right atrium is mildly dilated. The left atrial size is normal. Interarterial septum not well visualized and not well dopplered. Cannot comment on ASD/PFO presence. Mitral Valve The mitral valve leaflets are sclerotic, but show no functional abnormalities. There is no mitral valve stenosis. There is a trace amount of mitral regurgitation. Aortic Valve The aortic valve is not well visualized secondary to technical limitations. There is no aortic valve stenosis. No aortic regurgitation is present. Tricuspid Valve The tricuspid valve is not well visualized secondary to technical limitations. There is no tricuspid stenosis. There is a trace or physiologic amount of tricuspid regurgitation. Tricuspid regurgitation jet envelope not well defined to measure RV systolic pressure accurately. Pulmonic Valve The pulmonic valve is not well visualized. Great Vessels The aortic root is not well visualized. The inferior vena cava appeared normal and decreased > 50% with respiration (RAP 5-10 mmHg). Effusions There is no pericardial effusion. : MIGUEL STONE > Miguel Stone
[2017-11-24] MEDS: SENNOSIDES/DOCUSATE 8.6-50 MG 1 EACH TABLET PO SCH (22:03)
[2017-11-24] MEDS: LORAZEPAM 0.5 MG TABLET PO PRN (22:03)
[2017-11-24] MEDS: ATORVASTATIN CALCIUM 20 MG TABLET PO SCH (22:03)
[2017-11-24] MEDS: DONEPEZIL HCL 5 MG TABLET PO SCH (22:03)
[2017-11-24] MEDS: QUETIAPINE FUMARATE 25 MG TABLET PO SCH (22:13)
[2017-11-25] MEDS: METHYLPREDNISOLONE INJ 125 MG/2 ML SDV IV SCH ×5 (01:06→23:05)
[2017-11-25] MEDS: IPRATROPIUM/ALBUTEROL 0.5-2.5 MG/3 ML AMPUL NEB SCH ×4 (02:17→19:58)
[2017-11-25 05:04] LABS: HEMATOCRIT 40.1 % (36.0-47.0); MEAN CORPUSCULAR HEMOGLOBIN 31.3 pg (27.0-33.4); MEAN CORPUSCULAR HGB CONC 32.3 g/dL (32.0-36.0); MEAN CORPUSCULAR VOLUME 97 fl (80-97); PLATELET COUNT 169 10^3/uL (150-450); RED BLOOD COUNT 4.14 10^6/uL (3.72-5.28); RED CELL DISTRIBUTION WIDTH 13.8 % (11.5-14.0); WHITE BLOOD COUNT 4.1 10^3/uL (4.0-10.5)
[2017-11-25] MEDS: MAGNESIUM OXIDE 400 MG TABLET PO SCH ×3 (05:13→21:56)
[2017-11-25] MEDS: GABAPENTIN 100 MG CAPSULE PO SCH ×3 (05:13→21:56)
[2017-11-25 05:24] LABS: BLOOD UREA NITROGEN 24 mg/dL (7-20); CALCIUM 9.3 mg/dL (8.4-10.2); CHLORIDE 96 mmol/L (98-107); GLUCOSE 171 mg/dL (75-110); SODIUM 142.4 mmol/L (137-145)
[2017-11-25 05:40] LABS: ANION GAP 5 (5-19)
[2017-11-25 05:41] LABS: CARBON DIOXIDE 41 mmol/L (22-30)
[2017-11-25] MEDS: FAMOTIDINE 20 MG TABLET PO SCH ×2 (09:08→21:56)
[2017-11-25] MEDS: CYANOCOBALAMIN (VITAMIN B-12) 1,000 MCG TABLET PO SCH (09:09)
[2017-11-25] MEDS: MULTIVITAMIN TABLET PO SCH (09:09)
[2017-11-25] MEDS: APIXABAN 2.5 MG TABLET PO SCH ×2 (09:09→21:56)
[2017-11-25] MEDS: CEFEPIME 1 GM/D5W RTU 1 GM/50 ML RTUPB IV SCH ×2 (09:10→21:56)
[2017-11-25] MEDS: INSULIN LISPRO 100 UNIT/ML 3 ML VIAL SUBCUT PRN ×3 (09:10→23:07)
[2017-11-25] MEDS: DOCUSATE SODIUM 100 MG CAPSULE PO SCH ×2 (09:18→17:12)
[2017-11-25] MEDS: OSELTAMIVIR PHOSPHATE 6 MG/1 ML SUSP 60 ML PO SCH ×2 (09:27→17:22)
[2017-11-25 10:02] LABS: ARTERIAL BLOOD HCO3 41.2 mmol/L (20-26); ARTERIAL BLOOD O2 SATURATION 96.5 % (94-98); ARTERIAL BLOOD PCO2 63.2 mmHg (35-45); ARTERIAL BLOOD PH 7.43 (7.35-7.45); ARTERIAL BLOOD PO2 86.1 mmHg (80-100); ARTERIAL BLOOD TOTAL CO2 43.1 mmol/L (21-25)
[2017-11-25 10:03] LABS: ARTERIAL BLOOD FIO2 60%
--- NOTE | 2017-11-25 10:09 | PDOC CONSULTATION ---
Consultation Consult Date: 11/24/17 Attending physician:: NEETU CORCORAN Consult reason:: Shortness of breath History of Present Illness Admission Date/PCP: 11/23/17 07:40 SAMMI VAZQUEZ MD Patient complains of: Shortness of breath History of Present Illness: PAN BUTLER is a 77 year old female resents to the emergency room from [place] with complaint of cough and shortness of breath. Patient reports that she has been sick for the last 2-3 days. Patient is not able to give very good history however the ED states that patient was not able to maintain sats in the emergency department and they had to place her on BiPAP. [facility] Tam[facility] for the flu or for flu prevention. Patient did state that she is having body aches. This history was reviewed, and confirmed. Patient on repeated questioning denied any chest pain. Patient has a dense left hemiparesis. Past Medical History Cardiac Medical History: Reports: Atrial Fibrillation - paroxysmal reportedly, Hyperlipidema, Hypertension Pulmonary Medical History: Reports: Asthma, Chronic Obstructive Pulmonary Disease (COPD) Endocrine Medical History: Reports: Diabetes Mellitus Type 2 GI Medical History: Reports: Gastroesophageal Reflux Disease Psychiatric Medical History: Reports: Dementia, Depression Past Surgical History Past Surgical History: Reports: Appendectomy, Cholecystectomy, Tonsillectomy Social History Information Source: Patient Smoking Status: Former Smoker Frequency of Alcohol Use: None Hx Recreational Drug Use: No Drugs: None Hx Prescription Drug Abuse: No - Advance Directive Resuscitation Status: Do Not Resuscitate Family History Family History: Hypertension Parental Family History Reviewed: Yes Children Family History Reviewed: Yes Sibling(s) Family History Reviewed.: Yes Medication/Allergy Home Medications: Acetaminophen [Tylenol Extra Strength] 1,000 mg PO Q8HP PRN 11/23/17 Amiodarone HCl [Cordarone 200 mg Tablet] 200 mg PO DAILY 11/23/17 Apixaban [Eliquis 2.5 mg Tablet] 2.5 mg PO Q12 11/23/17 Atorvastatin Calcium [Lipitor 20 mg Tablet] 20 mg PO QHS 11/23/17 Cyanocobalamin (Vitamin B-12) [Vitamin B12] 1,000 mcg PO DAILY 11/23/17 Docusate Sodium [Colace 100 mg Capsule] 100 mg PO BID 11/23/17 Donepezil HCl [Aricept 5 mg Tablet] 10 mg PO QHS 11/23/17 Gabapentin [Neurontin 100 mg Capsule] 100 mg PO Q8 11/23/17 Hydrocodone/Acetaminophen [[place] 10-325 mg Tablet] 1 tab PO Q4HP PRN 11/23/17 Ipratropium/Albuterol Sulfate [Duoneb 3 ml Ampul] 3 ml NEB RTQ6HP PRN 11/23/17 Lorazepam [Ativan 0.5 mg Tablet] 0.5 mg PO Q6HP PRN 11/23/17 Magnesium Oxide [Mag-Ox 400 mg Tablet] 400 mg PO Q8 11/23/17 Multivitamin [Multivitamins] 1 each PO DAILY 11/23/17 Olopatadine HCl [Pataday] 2.5 ml OU DAILY 11/23/17 Ondansetron HCl [Zofran 4 mg Tablet] 1 tab PO Q8HP PRN 11/23/17 Oseltamivir Phosphate [Tamiflu 75 mg Capsule] 75 mg PO DAILY 11/23/17 Pantoprazole Sodium [Protonix] 40 mg PO DAILY 11/23/17 Quetiapine Fumarate [Seroquel 25 mg Tablet] 25 mg PO QHS 11/23/17 Sennosides [Senna] 8.6 mg PO QHS 11/23/17 Allergies/Adverse Reactions: Penicillins Allergy (Verified 01/31/15 18:27) Review of Systems Review of Systems: Please see history of present illness and past medical history as wall. Constitutional: fever or chills reported. Patient has marked weakness. Head : No recent chronic headaches, recent head injury. Eyes: No recent eye pain, diplopia, redness, discharge, acute visual changes. Ears: No recent chronic ear pain, acute hearing loss, ear discharge. Oral cavity: No recent ulcerations, bleeding, oral cavity discomfort. Neck: No recent acute neck pain reported. Hematologic: No recent easy bruising or bleeding or hematologic malignancy reported. Lymphatic: No recent lymphatic malignancy, chronic lymphadenopathy reported yet Cardiovascular system review: See history of present illness. Respiratory system review: Cough reported but denies hemoptysis, blood clots in the lungs reported. Gastrointestinal system review: Mild nausea and vomiting reported. Negative for any recent acute or chronic abdominal pain, hematemesis, melena, recent change in bowel habits. Genitourinary system review: No recent acute or chronic hematuria, flank pain, UTI etc. reported. Skin system review: Negative for any recent abnormal bruising, no rash, no pruritus reported. Neurologic: History of prior stroke with dense left hemiparesis. Psychologic: No history of major psychosis or major depression reported. Musculoskeletal: Minor aches and pains reported. No acute joint swelling reported. Endocrine: No recent polyuria, polydipsia, recent heat or cold intolerance. Physical Exam Vital Signs: Temp Pulse Resp BP Pulse Ox 98.8 F 78 23 H 133/65 H 94 11/24/17 15:46 11/24/17 15:46 11/24/17 16:00 11/24/17 15:46 11/24/17 15:46 Intake & Output 11/23/17 11/24/17 11/25/17 06:59 06:59 06:59 Intake Total 12 130 Output Total 101 225 Balance -89 -95 Exam: GENERAL: well-nourished and in mild resp distress. Alert and oriented x3 HEAD: Atraumatic, normocephalic. EYES: Pupils equal round and reactive to light, extraocular movements intact, sclera anicteric, conjunctiva are normal. ENT: TMs normal, nares patent, oropharynx clear without exudates. Moist mucous membranes. No oral ulcerations or bleeding gums noted NECK: supple without lymphadenopathy. Trachea is central. No cervical or axillary lymphadenopathy noted. Carotids are 2+, JVD WNL LUNGS: Respiration seems midly labored, no significant accessory muscle action noted. Breath sounds clear to auscultation bilaterally and equal noted. mild bilateral wheezes rales or rhonchi noted. bibasal mid dullness noted on percussion. CHEST: Palpation of the chest wall shows no significant chest wall tenderness. No other significant abnormalities noted. HEART: [place] SAMPLE PASTER, No PSH, 1/6 MICKEY aortic area, 1/6 son systolic murmur mitral area, no rubs, no gallops. ABDOMEN: Soft, no significant tenderness appreciated, normoactive bowel sounds. No guarding, no rebound. No rigidity noted . No masses appreciated. EXTREMITIES: Pedal pulses are 1-2+, no calf tenderness noted. No clubbing or cyanosis.1+ pedal edema noted NEUROLOGICAL: Findings of dense left hemiparesis.. PSYCH: Normal mood, normal affect. Judgment and insight within normal limits. SKIN: No significant ecchymosis, rash, ulcerations or signs of pruritus noted. MUSCULOSKELETAL EXAM: No significant joint swelling noted. Results Laboratory Results: 11/24/17 05:09 11/24/17 05:09 11/23/17 11/24/17 11/24/17 23:05 05:09 05:09 WBC 3.8 L RBC 4.18 Hgb 13.2 Hct 40.4 MCV 97 MCH 31.6 MCHC 32.7 RDW 13.9 Plt Count 169 Seg Neutrophils % 87.2 H Lymphocytes % 8.3 L Monocytes % 4.4 Eosinophils % 0.0 Basophils % 0.1 Absolute Neutrophils 3.3 Absolute Lymphocytes 0.3 L Absolute Monocytes 0.2 Absolute Eosinophils 0.0 Absolute Basophils 0.0 Carbonic Acid 1.74 H HCO3/H2CO3 Ratio 22:1 ABG pH 7.44 ABG pCO2 57.9 H ABG pO2 57.5 L ABG HCO3 38.8 H ABG O2 Saturation 90.3 L ABG Base Excess 12.3 FiO2 50% Sodium 136.9 L Potassium 4.5 Chloride 95 L Carbon Dioxide 37 H Anion Gap 5 BUN 20 Creatinine 0.47 L Est GFR ( Amer) > 60 Est GFR (Non-Af Amer) > 60 Glucose 163 H Calcium 9.5 Total Bilirubin 0.5 AST 30 ALT 26 Alkaline Phosphatase 58 Total Protein 6.2 L Albumin 3.2 L TSH Free T4 Free T3 pg/mL 11/24/17 11/24/17 05:09 05:09 WBC RBC Hgb Hct MCV MCH MCHC RDW Plt Count Seg Neutrophils % Lymphocytes % Monocytes % Eosinophils % Basophils % Absolute Neutrophils Absolute Lymphocytes Absolute Monocytes Absolute Eosinophils Absolute Basophils Carbonic Acid HCO3/H2CO3 Ratio ABG pH ABG pCO2 ABG pO2 ABG HCO3 ABG O2 Saturation ABG Base Excess FiO2 Sodium Potassium Chloride Carbon Dioxide Anion Gap BUN Creatinine Est GFR ( Amer) Est GFR (Non-Af Amer) Glucose Calcium Total Bilirubin AST ALT Alkaline Phosphatase Total Protein Albumin TSH < 0.01 L Free T4 3.08 H Free T3 pg/mL Cancelled 11/23/17 15:12 Catheterized Urine Urine Culture - Final 7,000 col/ml 11/23/17 15:14 Nasophary (Mrsa Only) MRSA Surveillance Culture - Final MRSA RECOVERED EKG Comments: Shows sinus rhythm, no acute ST-T wave changes noted Impressions: Chest CT 11/23/17 00:00 IMPRESSION: Left lower lobe and lingular pneumonia. Chest X-Ray 11/23/17 05:27 IMPRESSION: 1. Cardiomegaly with possible small left pleural effusion. 2. Streaky right basilar opacities may be related to subsegmental atelectasis however developing pneumonic process could produce a similar appearance. Continued radiographic follow-up to resolution recommended. Assessment & Plan - Diagnosis (1) Acute respiratory failure Qualifiers: Respiratory failure complication: hypercapnia Qualified Code(s): J96.02 - Acute respiratory failure with hypercapnia Is this a current diagnosis for this admission?: Yes (2) Diabetes mellitus type 2 in obese Is this a current diagnosis for this admission?: Yes (3) Hyperthyroidism Is this a current diagnosis for this admission?: Yes (4) Atrial fibrillation Qualifiers: Atrial fibrillation type: paroxysmal Qualified Code(s): I48.0 - Paroxysmal atrial fibrillation Is this a current diagnosis for this admission?: No (5) COPD exacerbation Is this a current diagnosis for this admission?: Yes (6) Obesity Qualifiers: Obesity type: unspecified obesity type Is this a current diagnosis for this admission?: Yes - Notes Notes: Atrial fibrillation: Paroxysmal. Continue amiodarone therapy and Eliquis therapy. May consider pulmonary consult if needed to rule out any amiodarone toxicity. Possibilty of CHF with normal BNP. Review echo, repeat EKG in DD Based on chest x-ray reviewed, do not feel patient seems to have amiodarone toxicity. However a formal PFT may be needed. However if patient has been on amiodarone therapy for more than 6 months, consider discontinuing it. Respiratory failure: is probably related to obesity hypoventilation syndrome on top op of COPD and chf. Continue with noninvasive positive pressure ventilation. COPD: cont current management plans. Obesity: rec weight loss. Patient currently maintaining sinus rhythm but continue with Eliquis therapy. Continue ventilatory support with noninvasive positive pressure ventilation. 2D echo results reviewed. - Time Time Spent: 30 to 50 Minutes
[2017-11-25] MEDS: NORMAL SALINE 1000 ML 1,000 ML IV PRN ×2 (11:15→19:41)
--- NOTE | 2017-11-25 12:27 | PDOC PROGRESS REPORT ---
Subjective Progress Note for:: 11/25/17 Subjective:: The patient is a 77-year-old female with a past medical history of atrial fibrillation, hyperlipidemia, hypertension, asthma, COPD, type 2 diabetes mellitus, GERD, dementia, and depression who is a long-term resident of [facility] who was admitted yesterday for acute respiratory failure likely secondary to viral illness in the setting of COPD. The patient is seen on morning rounds. She is found resting in bed comfortably on BiPap. She complains of myalgia and chills today. She does complain of dyspneal while at rest and on BiPAP but is comfortable when wearing BiPAP. She denies cough, chest pain and palpitations. Reason For Visit: ACUTE ON CHRONIC HYPOXIC RESPIRATORY FAILURE Physical Exam Vital Signs: Temp Pulse Resp BP Pulse Ox 98.9 F 73 15 139/75 H 97 11/25/17 10:51 11/25/17 10:51 11/25/17 10:51 11/25/17 10:51 11/25/17 10:51 Intake & Output 11/24/17 11/25/17 11/26/17 06:59 06:59 06:59 Intake Total 12 130 222 Output Total 101 375 150 Balance -89 -245 72 Weight 127.2 kg General appearance: PRESENT: no acute distress, obese, well-developed, well- nourished Head exam: PRESENT: atraumatic, normocephalic Eye exam: PRESENT: conjunctiva pink, EOMI, PERRLA. ABSENT: scleral icterus Ear exam: PRESENT: normal external ear exam Mouth exam: PRESENT: moist, tongue midline Neck exam: ABSENT: carotid bruit, JVD, lymphadenopathy, thyromegaly Respiratory exam: PRESENT: decreased breath sounds - Bibasilar, rhonchi - Throughout, wheezes - Expiratory, other - Currently on BiPAP. ABSENT: rales, tachypnea Cardiovascular exam: PRESENT: RRR, +S1, +S2. ABSENT: diastolic murmur, rubs, systolic murmur Pulses: PRESENT: normal dorsalis pedis pul Vascular exam: PRESENT: normal capillary refill GI/Abdominal exam: PRESENT: normal bowel sounds, soft. ABSENT: distended, guarding, mass, organolmegaly, rebound, tenderness Rectal exam: PRESENT: deferred Extremities exam: PRESENT: full ROM, +2 edema. ABSENT: calf tenderness, clubbing, pedal edema Neurological exam: PRESENT: alert, awake, oriented to person, oriented to place , oriented to time, oriented to situation, CN II-XII grossly intact. ABSENT: motor sensory deficit Psychiatric exam: PRESENT: appropriate affect, normal mood. ABSENT: homicidal ideation, suicidal ideation Skin exam: PRESENT: dry, intact, warm. ABSENT: cyanosis, rash Results Laboratory Results: 11/25/17 04:42 11/25/17 04:42 11/24/17 11/25/17 11/25/17 19:50 04:42 04:42 WBC 4.1 RBC 4.14 Hgb 13.0 Hct 40.1 MCV 97 MCH 31.3 MCHC 32.3 RDW 13.8 Plt Count 169 Carbonic Acid HCO3/H2CO3 Ratio ABG pH ABG pCO2 ABG pO2 ABG HCO3 ABG O2 Saturation ABG Base Excess FiO2 Sodium 142.4 Potassium 4.0 Chloride 96 L Carbon Dioxide 41 H* Anion Gap 5 BUN 24 H Creatinine 0.61 Est GFR ( Amer) > 60 Est GFR (Non-Af Amer) > 60 Glucose 171 H Calcium 9.3 Free T3 pg/mL 2.15 L 11/25/17 09:50 WBC RBC Hgb Hct MCV MCH MCHC RDW Plt Count Carbonic Acid 1.90 H HCO3/H2CO3 Ratio 21:1 ABG pH 7.43 ABG pCO2 63.2 H ABG pO2 86.1 ABG HCO3 41.2 H ABG O2 Saturation 96.5 ABG Base Excess 14.0 FiO2 60% Sodium Potassium Chloride Carbon Dioxide Anion Gap BUN Creatinine Est GFR ( Amer) Est GFR (Non-Af Amer) Glucose Calcium Free T3 pg/mL 11/23/17 15:12 Catheterized Urine Urine Culture - Final 7,000 col/ml 11/23/17 15:14 Nasophary (Mrsa Only) MRSA Surveillance Culture - Final MRSA RECOVERED Impressions: Chest CT 11/23/17 00:00 IMPRESSION: Left lower lobe and lingular pneumonia. Chest X-Ray 11/23/17 05:27 IMPRESSION: 1. Cardiomegaly with possible small left pleural effusion. 2. Streaky right basilar opacities may be related to subsegmental atelectasis however developing pneumonic process could produce a similar appearance. Continued radiographic follow-up to resolution recommended. Assessment & Plan - Diagnosis (1) Acute respiratory failure Qualifiers: Respiratory failure complication: hypercapnia Qualified Code(s): J96.02 - Acute respiratory failure with hypercapnia Is this a current diagnosis for this admission?: Yes Plan: Secondary to pneumonia in the setting of COPD. The patient has been placed on BiPAP with supplemental oxygen as needed to maintain O2 sats greater than 88%. Chest CT does demonstrate a left lower lobe and lingular pneumonia. Blood cultures have no growth at 24 hours and sputum cultures are pending. MRSA screening is positive. Influenza screening is negative. ABG this morning demonstrates compensated respiratory acidosis. The patient has been empirically placed on cefepime. The patient has also been placed on Tamiflu for influenza prophylaxis; she is currently on day 3 of 7. We will continue scheduled duo nebs and IV steroids. Will add mucinex. (2) Pneumonia Qualifiers: Laterality: right Is this a current diagnosis for this admission?: Yes Plan: Plan as above. (3) COPD exacerbation Is this a current diagnosis for this admission?: Yes Plan: Plan as above. (4) Hyperthyroidism Is this a current diagnosis for this admission?: Yes Plan: The patient is noted to have a TSH of less than 0.01 with a free T4 of 3.08 and Free T3 of 2.15. The patient has been chronically on amiodarone. Cardiology has been consulted; appreciate their evaluation recommendations. (5) Atrial fibrillation Qualifiers: Atrial fibrillation type: chronic Qualified Code(s): I48.2 - Chronic atrial fibrillation Is this a current diagnosis for this admission?: No Plan: Currently normal sinus rhythm; PAF Cardiology has recommended that amiodarone be continued. Appreciate their evaluation and recommendations. Continue chronic anticoagulation with Eliquis 2.5 every 12 hours. (6) Diabetes mellitus type 2 in obese Is this a current diagnosis for this admission?: Yes Plan: The patient is provided consistent carb diet with Accu-Cheks before meals and at bedtime and Humalog for sliding scale coverage. (7) Dehydration Is this a current diagnosis for this admission?: Yes Plan: In the setting of pneumonia with poor oral intake. Will start the patient on gentle IV fluid hydration and encourage p.o. fluids. (8) DVT prophylaxis Is this a current diagnosis for this admission?: Yes Plan: Continue the patient's home dose Eliquis. SCDs while in bed. - Time Time Spent with patient: 25-34 minutes Medications reviewed and adjusted accordingly: Yes
--- NOTE | 2017-11-25 20:32 | PDOC PROGRESS REPORT ---
Subjective Progress Note for:: 11/25/17 Subjective:: Patient is wearing noninvasive positive pressure ventilation. Patient is comfortable and seems basically bedbound because of previous stroke. Patient seems to be doing better with gradual improvement. Pt is denying any chest arm or neck discomfort. Patient denying any PND, orthopnea. Patient denied any sustained palpitations, dizziness, syncope, near syncope. Patient denying any fever chills. Patient denying any other significant discomfort. Patient is maintaining sinus rhythm. Review of systems: Rest review of systems negative. Medications: Medications have been reviewed. Reason For Visit: ACUTE ON CHRONIC HYPOXIC RESPIRATORY FAILURE Physical Exam Vital Signs: Temp Pulse Resp BP Pulse Ox 98.4 F 84 20 138/57 H 94 11/25/17 15:10 11/25/17 15:10 11/25/17 15:10 11/25/17 15:10 11/25/17 15:10 Intake & Output 11/24/17 11/25/17 11/26/17 06:59 06:59 06:59 Intake Total 12 130 1677 Output Total 101 375 350 Balance -89 -245 1327 Weight 127.2 kg Exam: GENERAL: well-nourished and in no acute distress. Alert and oriented x3 HEAD: Atraumatic, normocephalic. EYES: Pupils equal round and reactive to light, extraocular movements intact, sclera anicteric, conjunctiva are normal. ENT: TMs normal, nares patent, oropharynx clear without exudates. Moist mucous membranes. No oral ulcerations or bleeding gums noted NECK: supple without lymphadenopathy. Trachea is central. No cervical or axillary lymphadenopathy noted. Carotids are 2+, JVD WNL LUNGS: Respiration seems nonlabored, no significant accessory muscle action noted. Breath sounds clear to auscultation bilaterally and equal noted. No wheezes rales or rhonchi noted. No significant dullness noted on percussion. CHEST: Palpation of the chest wall shows no significant chest wall tenderness. No other significant abnormalities noted. HEART: [place] [employer], No PSH, 1/6 MICKEY aortic area, 1/6 son systolic murmur mitral area, no rubs, no gallops. ABDOMEN: Soft, no significant tenderness appreciated, normoactive bowel sounds. No guarding, no rebound. No rigidity noted . No masses appreciated. EXTREMITIES: Pedal pulses are 1-2+, no calf tenderness noted. No clubbing or cyanosis.1+ pedal edema noted NEUROLOGICAL: Findings of dense left hemiparesis.. PSYCH: Normal mood, normal affect. Judgment and insight within normal limits. SKIN: No significant ecchymosis, rash, ulcerations or signs of pruritus noted. MUSCULOSKELETAL EXAM: No significant joint swelling noted. Results Laboratory Results: 11/25/17 04:42 11/25/17 04:42 11/24/17 11/25/17 11/25/17 19:50 04:42 04:42 WBC 4.1 RBC 4.14 Hgb 13.0 Hct 40.1 MCV 97 MCH 31.3 MCHC 32.3 RDW 13.8 Plt Count 169 Carbonic Acid HCO3/H2CO3 Ratio ABG pH ABG pCO2 ABG pO2 ABG HCO3 ABG O2 Saturation ABG Base Excess FiO2 Sodium 142.4 Potassium 4.0 Chloride 96 L Carbon Dioxide 41 H* Anion Gap 5 BUN 24 H Creatinine 0.61 Est GFR ( Amer) > 60 Est GFR (Non-Af Amer) > 60 Glucose 171 H Calcium 9.3 Free T3 pg/mL 2.15 L 11/25/17 09:50 WBC RBC Hgb Hct MCV MCH MCHC RDW Plt Count Carbonic Acid 1.90 H HCO3/H2CO3 Ratio 21:1 ABG pH 7.43 ABG pCO2 63.2 H ABG pO2 86.1 ABG HCO3 41.2 H ABG O2 Saturation 96.5 ABG Base Excess 14.0 FiO2 60% Sodium Potassium Chloride Carbon Dioxide Anion Gap BUN Creatinine Est GFR ( Amer) Est GFR (Non-Af Amer) Glucose Calcium Free T3 pg/mL 11/23/17 15:12 Catheterized Urine Urine Culture - Final 7,000 col/ml 11/23/17 15:14 Nasophary (Mrsa Only) MRSA Surveillance Culture - Final MRSA RECOVERED EKG Comments: Patient seems to be maintaining sinus rhythm. Impressions: Chest CT 11/23/17 00:00 IMPRESSION: Left lower lobe and lingular pneumonia. Chest X-Ray 11/23/17 05:27 IMPRESSION: 1. Cardiomegaly with possible small left pleural effusion. 2. Streaky right basilar opacities may be related to subsegmental atelectasis however developing pneumonic process could produce a similar appearance. Continued radiographic follow-up to resolution recommended. Assessment & Plan - Diagnosis (1) Acute respiratory failure Qualifiers: Respiratory failure complication: hypercapnia Qualified Code(s): J96.02 - Acute respiratory failure with hypercapnia Is this a current diagnosis for this admission?: Yes (2) Diabetes mellitus type 2 in obese Is this a current diagnosis for this admission?: Yes (3) Hyperthyroidism Is this a current diagnosis for this admission?: Yes (4) Atrial fibrillation Qualifiers: Atrial fibrillation type: paroxysmal Qualified Code(s): I48.0 - Paroxysmal atrial fibrillation Is this a current diagnosis for this admission?: No (5) COPD exacerbation Is this a current diagnosis for this admission?: Yes - Notes Notes: Patient acute on chronic respiratory failure: Most likely related to obesity hypoventilation syndrome, possible underlying COPD exacerbation, pneumonia etc. Patient being managed by hospitalist. May consider pulmonology evaluation and assessment. Diabetes: Recommend good control of blood sugar. However should avoid any hypoglycemia and hyperglycemia. Patient being expertly managed by primary care M.D/hospitalist Atrial fibrillation: Currently patient maintaining sinus rhythm. Continue amiodarone for maintaining sinus rhythm. Continue with chronic anticoagulation. COPD exacerbation: Continue current management plans. Overall prognosis is guarded. CODE STATUS : was discussed, patient remains DO NOT RESUSCITATE. Surrogate decision-maker unchanged. Multiple medical problems were addressed. - Time Time with patient: 15-25 minutes - More than 50% of the time spent coordinating care, discussing management plans with involved caregivers. Management plans discussed with involved personnels. Medical decision making was of moderate to high complexity, patient's has multiple comorbidities. Medications reviewed and adjusted accordingly: Yes
[2017-11-25] MEDS: ATORVASTATIN CALCIUM 20 MG TABLET PO SCH (21:55)
[2017-11-25] MEDS: DONEPEZIL HCL 5 MG TABLET PO SCH (21:55)
[2017-11-25] MEDS: SENNOSIDES/DOCUSATE 8.6-50 MG 1 EACH TABLET PO SCH (21:55)
[2017-11-25] MEDS: GUAIFENESIN 600 MG TABLET.SA PO SCH (21:56)
[2017-11-25] MEDS: QUETIAPINE FUMARATE 25 MG TABLET PO SCH (21:56)
[2017-11-26] MEDS: IPRATROPIUM/ALBUTEROL 0.5-2.5 MG/3 ML AMPUL NEB SCH ×4 (02:09→20:14)
[2017-11-26 06:13] LABS: HEMATOCRIT 41.5 % (36.0-47.0); HEMOGLOBIN 13.3 g/dL (12.0-15.5); MEAN CORPUSCULAR HEMOGLOBIN 31.2 pg (27.0-33.4); MEAN CORPUSCULAR HGB CONC 32.2 g/dL (32.0-36.0); MEAN CORPUSCULAR VOLUME 97 fl (80-97); PLATELET COUNT 136 10^3/uL (150-450); RED BLOOD COUNT 4.28 10^6/uL (3.72-5.28); RED CELL DISTRIBUTION WIDTH 14.2 % (11.5-14.0); WHITE BLOOD COUNT 3.8 10^3/uL (4.0-10.5)
[2017-11-26 06:36] LABS: ANION GAP 7 (5-19); BLOOD UREA NITROGEN 26 mg/dL (7-20); CALCIUM 9.2 mg/dL (8.4-10.2); CARBON DIOXIDE 34 mmol/L (22-30); CHLORIDE 99 mmol/L (98-107); GLUCOSE 168 mg/dL (75-110); POTASSIUM 3.8 mmol/L (3.6-5.0); SODIUM 139.5 mmol/L (137-145)
[2017-11-26] MEDS: METHYLPREDNISOLONE INJ 125 MG/2 ML SDV IV SCH ×4 (07:31→23:38)
[2017-11-26] MEDS: GABAPENTIN 100 MG CAPSULE PO SCH ×3 (07:32→22:05)
[2017-11-26] MEDS: MAGNESIUM OXIDE 400 MG TABLET PO SCH ×3 (07:32→22:06)
[2017-11-26] MEDS: APIXABAN 2.5 MG TABLET PO SCH ×2 (10:35→22:06)
[2017-11-26] MEDS: AMIODARONE HCL 200 MG TABLET PO SCH (10:35)
[2017-11-26] MEDS: GUAIFENESIN 600 MG TABLET.SA PO SCH ×2 (10:36→22:06)
[2017-11-26] MEDS: FAMOTIDINE 20 MG TABLET PO SCH ×2 (10:36→22:06)
[2017-11-26] MEDS: MULTIVITAMIN TABLET PO SCH (10:36)
[2017-11-26] MEDS: CYANOCOBALAMIN (VITAMIN B-12) 1,000 MCG TABLET PO SCH (10:36)
[2017-11-26] MEDS: DOCUSATE SODIUM 100 MG CAPSULE PO SCH ×2 (10:36→18:43)
[2017-11-26] MEDS: OSELTAMIVIR PHOSPHATE 6 MG/1 ML SUSP 60 ML PO SCH ×2 (10:37→18:43)
[2017-11-26] MEDS: CEFEPIME 1 GM/D5W RTU 1 GM/50 ML RTUPB IV SCH ×2 (10:39→22:05)
[2017-11-26] MEDS: NORMAL SALINE 1000 ML 1,000 ML IV PRN ×2 (10:46→22:13)
[2017-11-26] MEDS ORDERED: LEVALBUTEROL HCL NEB 1.25 MG/3 ML AMPUL NEB PRN (11:09)
--- NOTE | 2017-11-26 11:15 | PDOC PROGRESS REPORT ---
Subjective Progress Note for:: 11/26/17 Subjective:: The patient is a 77-year-old female with a past medical history of atrial fibrillation, hyperlipidemia, hypertension, asthma, COPD, type 2 diabetes mellitus, GERD, dementia, and depression who is a long-term resident of [facility] who was admitted yesterday for acute respiratory failure likely secondary to viral illness in the setting of COPD. The patient is seen on morning rounds. She is found resting in bed comfortably on supplemental oxygen via nasal cannula at 3 L/min. She complains chills today , but states that her myalgia has resolved. She denies dyspnea at present. She does confirm a productive cough. She states that she is hopeful to be well enough to be discharged home within the next couple of days. Reason For Visit: ACUTE ON CHRONIC HYPOXIC RESPIRATORY FAILURE Physical Exam Vital Signs: Temp Pulse Resp BP Pulse Ox 98.7 F 86 20 139/68 H 96 11/26/17 09:12 11/26/17 09:12 11/26/17 09:12 11/26/17 09:12 11/26/17 09:12 Intake & Output 11/25/17 11/26/17 11/27/17 06:59 06:59 06:59 Intake Total 130 3858 Output Total 375 750 Balance -245 3108 Weight 127.2 kg 129.8 kg General appearance: PRESENT: no acute distress, obese, well-developed, well- nourished Head exam: PRESENT: atraumatic, normocephalic Eye exam: PRESENT: conjunctiva pink, EOMI, PERRLA. ABSENT: scleral icterus Ear exam: PRESENT: normal external ear exam Mouth exam: PRESENT: moist, tongue midline Teeth exam: PRESENT: poor dentation Neck exam: ABSENT: carotid bruit, JVD, lymphadenopathy, thyromegaly Respiratory exam: PRESENT: rhonchi, symmetrical, unlabored, wheezes - Throughout , other - Supplemental oxygen via nasal cannula. ABSENT: rales, tachypnea Cardiovascular exam: PRESENT: RRR, +S1, +S2, systolic murmur. ABSENT: diastolic murmur, rubs Pulses: PRESENT: normal dorsalis pedis pul Vascular exam: PRESENT: normal capillary refill GI/Abdominal exam: PRESENT: normal bowel sounds, soft. ABSENT: distended, guarding, mass, organolmegaly, rebound, tenderness Rectal exam: PRESENT: deferred Extremities exam: PRESENT: full ROM, pedal edema - Trace pedal edema. ABSENT: calf tenderness, clubbing Neurological exam: PRESENT: alert, awake, oriented to person, oriented to place , oriented to time, oriented to situation, CN II-XII grossly intact. ABSENT: motor sensory deficit Psychiatric exam: PRESENT: appropriate affect, normal mood. ABSENT: homicidal ideation, suicidal ideation Skin exam: PRESENT: dry, erythema - To face secondary to BiPAP mask, intact, warm. ABSENT: cyanosis, rash Results Laboratory Results: 11/26/17 05:15 11/26/17 05:15 11/26/17 11/26/17 05:15 05:15 WBC 3.8 L RBC 4.28 Hgb 13.3 Hct 41.5 MCV 97 MCH 31.2 MCHC 32.2 RDW 14.2 H Plt Count 136 L Sodium 139.5 Potassium 3.8 Chloride 99 Carbon Dioxide 34 H Anion Gap 7 BUN 26 H Creatinine 0.46 L Est GFR ( Amer) > 60 Est GFR (Non-Af Amer) > 60 Glucose 168 H Calcium 9.2 Impressions: Chest CT 11/23/17 00:00 IMPRESSION: Left lower lobe and lingular pneumonia. Chest X-Ray 11/23/17 05:27 IMPRESSION: 1. Cardiomegaly with possible small left pleural effusion. 2. Streaky right basilar opacities may be related to subsegmental atelectasis however developing pneumonic process could produce a similar appearance. Continued radiographic follow-up to resolution recommended. Assessment & Plan - Diagnosis (1) Acute respiratory failure Qualifiers: Respiratory failure complication: hypercapnia Qualified Code(s): J96.02 - Acute respiratory failure with hypercapnia Is this a current diagnosis for this admission?: Yes Plan: Some improvement noted today. Secondary to pneumonia in the setting of COPD. Chest CT does demonstrate a left lower lobe and lingular pneumonia. Blood cultures have no growth at 48 hours and sputum cultures are pending. MRSA screening is positive. Influenza screening is negative. ABG yesterday demonstrated compensated respiratory acidosis. Bicarb is noted to be trending down. The patient has been placed on BiPAP with supplemental oxygen as needed to maintain O2 sats greater than 88%. The patient has been empirically placed on cefepime. The patient has also been placed on Tamiflu for influenza prophylaxis; she is currently on day 4 of 7. We will continue scheduled duo nebs and IV steroids. Continue Mucinex. Encourage incentive spirometry. (2) Pneumonia Qualifiers: Laterality: right Is this a current diagnosis for this admission?: Yes Plan: Plan as above. (3) COPD exacerbation Is this a current diagnosis for this admission?: Yes Plan: Plan as above. (4) Hyperthyroidism Is this a current diagnosis for this admission?: Yes Plan: The patient is noted to have a TSH of less than 0.01 with a free T4 of 3.08 and Free T3 of 2.15. The patient has been chronically on amiodarone. Cardiology has been consulted; appreciate their evaluation recommendations. (5) Atrial fibrillation Qualifiers: Atrial fibrillation type: chronic Qualified Code(s): I48.2 - Chronic atrial fibrillation Is this a current diagnosis for this admission?: No Plan: Currently normal sinus rhythm; PAF Cardiology has recommended that amiodarone be continued. Appreciate their evaluation and recommendations. Continue chronic anticoagulation with Eliquis 2.5 every 12 hours. (6) Diabetes mellitus type 2 in obese Is this a current diagnosis for this admission?: Yes Plan: The patient is provided consistent carb diet with Accu-Cheks before meals and at bedtime and Humalog for sliding scale coverage. (7) Dehydration Is this a current diagnosis for this admission?: Yes Plan: In the setting of pneumonia with poor oral intake. Continue gentle IV fluid hydration and encourage p.o. fluids. (8) DVT prophylaxis Is this a current diagnosis for this admission?: Yes Plan: Continue the patient's home dose Eliquis. SCDs while in bed. - Time Time Spent with patient: 15-24 minutes Medications reviewed and adjusted accordingly: Yes Anticipated discharge: SNF - Where the patient is a permanent resident - Inpatient Certification Based on my medical assessment, after consideration of the patient's comorbidities, presenting symptoms, or acuity I expect that the services needed warrant INPATIENT care.: Yes I certify that my determination is in accordance with my understanding of Medicare's requirements for reasonable and necessary INPATIENT services [42 CFR 412.3e].: Yes Medical Necessity: Need Close Monitoring Due to Risk of Patient Decompensation, Need for Nebulizer Therapy and Monitoring of Response, Need for IV Antibiotics
[2017-11-26] MEDS: LORAZEPAM 0.5 MG TABLET PO PRN (14:12)
[2017-11-26] MEDS: MINERAL OIL/PETROLATUM,WHITE CREAM 114 GM TP SCH (19:11)
--- NOTE | 2017-11-26 21:54 | PDOC PROGRESS REPORT ---
Subjective Progress Note for:: 11/26/17 Subjective:: Patient feels improved. Patient is wearing noninvasive positive pressure ventilation. Patient is comfortable. Pt is denying any chest arm or neck discomfort. Patient denying any PND, orthopnea. Patient denied any sustained palpitations, dizziness, syncope, near syncope. Patient denying any fever chills. Patient denying any other significant discomfort. Patient is maintaining sinus rhythm. Review of systems: Rest review of systems negative. Medications: Medications have been reviewed. Reason For Visit: ACUTE ON CHRONIC HYPOXIC RESPIRATORY FAILURE Physical Exam Vital Signs: Temp Pulse Resp BP Pulse Ox 98.2 F 81 20 129/59 H 95 11/26/17 16:35 11/26/17 16:35 11/26/17 16:35 11/26/17 16:35 11/26/17 16:41 Intake & Output 11/25/17 11/26/17 11/27/17 06:59 06:59 06:59 Intake Total 130 3858 570 Output Total 375 750 650 Balance -245 3108 -80 Weight 127.2 kg 129.8 kg Exam: GENERAL: well-nourished and in no acute distress. Alert and oriented x3 HEAD: Atraumatic, normocephalic. EYES: Pupils equal round and reactive to light, extraocular movements intact, sclera anicteric, conjunctiva are normal. ENT: TMs normal, nares patent, oropharynx clear without exudates. Moist mucous membranes. No oral ulcerations or bleeding gums noted NECK: supple without lymphadenopathy. Trachea is central. No cervical or axillary lymphadenopathy noted. Carotids are 2+, JVD WNL LUNGS: Respiration seems nonlabored, no significant accessory muscle action noted. Breath sounds clear to auscultation bilaterally and equal noted. No wheezes rales or rhonchi noted. No significant dullness noted on percussion. CHEST: Palpation of the chest wall shows no significant chest wall tenderness. No other significant abnormalities noted. HEART: [place] [employer], No PSH, 1/6 MICKEY aortic area, 1/6 son systolic murmur mitral area, no rubs, no gallops. ABDOMEN: Soft, no significant tenderness appreciated, normoactive bowel sounds. No guarding, no rebound. No rigidity noted . No masses appreciated. EXTREMITIES: Pedal pulses are 1-2+, no calf tenderness noted. No clubbing or cyanosis.1+ pedal edema noted NEUROLOGICAL: Findings of dense left hemiparesis.. PSYCH: Normal mood, normal affect. Judgment and insight within normal limits. SKIN: No significant ecchymosis, rash, ulcerations or signs of pruritus noted. MUSCULOSKELETAL EXAM: No significant joint swelling noted. Results Laboratory Results: 11/26/17 05:15 11/26/17 05:15 11/26/17 11/26/17 05:15 05:15 WBC 3.8 L RBC 4.28 Hgb 13.3 Hct 41.5 MCV 97 MCH 31.2 MCHC 32.2 RDW 14.2 H Plt Count 136 L Sodium 139.5 Potassium 3.8 Chloride 99 Carbon Dioxide 34 H Anion Gap 7 BUN 26 H Creatinine 0.46 L Est GFR ( Amer) > 60 Est GFR (Non-Af Amer) > 60 Glucose 168 H Calcium 9.2 EKG Comments: SR, No sustained tachy or madeline arrhythmia noted. Impressions: Chest CT 11/23/17 00:00 IMPRESSION: Left lower lobe and lingular pneumonia. Chest X-Ray 11/23/17 05:27 IMPRESSION: 1. Cardiomegaly with possible small left pleural effusion. 2. Streaky right basilar opacities may be related to subsegmental atelectasis however developing pneumonic process could produce a similar appearance. Continued radiographic follow-up to resolution recommended. Assessment & Plan - Diagnosis (1) Acute respiratory failure Qualifiers: Respiratory failure complication: hypercapnia Qualified Code(s): J96.02 - Acute respiratory failure with hypercapnia Is this a current diagnosis for this admission?: Yes (2) Diabetes mellitus type 2 in obese Is this a current diagnosis for this admission?: Yes (3) Hyperthyroidism Is this a current diagnosis for this admission?: Yes (4) Atrial fibrillation Qualifiers: Atrial fibrillation type: paroxysmal Qualified Code(s): I48.0 - Paroxysmal atrial fibrillation Is this a current diagnosis for this admission?: No (5) COPD exacerbation Is this a current diagnosis for this admission?: Yes - Notes Notes: No significant change in patient condition. HCO3 has improved suggesting improving resp failure. No changed made today. Patient acute on chronic respiratory failure: Most likely related to obesity hypoventilation syndrome, possible underlying COPD exacerbation, pneumonia etc. Patient being managed by hospitalist. May consider pulmonology evaluation and assessment. Diabetes: Recommend good control of blood sugar. However should avoid any hypoglycemia and hyperglycemia. Patient being expertly managed by primary care M.D/hospitalist Atrial fibrillation: Currently patient maintaining sinus rhythm. Continue amiodarone for maintaining sinus rhythm. Continue with chronic anticoagulation. COPD exacerbation: Continue current management plans. Overall prognosis is guarded. CODE STATUS : was discussed, patient remains DO NOT RESUSCITATE. Surrogate decision-maker unchanged. Multiple medical problems were addressed.
[2017-11-26] MEDS: QUETIAPINE FUMARATE 25 MG TABLET PO SCH (22:05)
[2017-11-26] MEDS: DONEPEZIL HCL 5 MG TABLET PO SCH (22:05)
[2017-11-26] MEDS: SENNOSIDES/DOCUSATE 8.6-50 MG 1 EACH TABLET PO SCH (22:05)
[2017-11-26] MEDS: ATORVASTATIN CALCIUM 20 MG TABLET PO SCH (22:05)
[2017-11-27] MEDS: IPRATROPIUM/ALBUTEROL 0.5-2.5 MG/3 ML AMPUL NEB SCH ×4 (01:47→20:19)
[2017-11-27 05:08] LABS: HEMATOCRIT 38.7 % (36.0-47.0); HEMOGLOBIN 12.9 g/dL (12.0-15.5); MEAN CORPUSCULAR HEMOGLOBIN 31.9 pg (27.0-33.4); MEAN CORPUSCULAR HGB CONC 33.3 g/dL (32.0-36.0); MEAN CORPUSCULAR VOLUME 96 fl (80-97); PLATELET COUNT 145 10^3/uL (150-450); RED BLOOD COUNT 4.05 10^6/uL (3.72-5.28); RED CELL DISTRIBUTION WIDTH 14.1 % (11.5-14.0); WHITE BLOOD COUNT 3.9 10^3/uL (4.0-10.5)
[2017-11-27 05:44] LABS: ANION GAP 8 (5-19); BLOOD UREA NITROGEN 24 mg/dL (7-20); CARBON DIOXIDE 34 mmol/L (22-30); CHLORIDE 99 mmol/L (98-107); GLUCOSE 183 mg/dL (75-110); POTASSIUM 3.8 mmol/L (3.6-5.0); SODIUM 140.7 mmol/L (137-145)
[2017-11-27] MEDS: NORMAL SALINE 1000 ML 1,000 ML IV PRN ×2 (07:34→18:33)
[2017-11-27] MEDS: GABAPENTIN 100 MG CAPSULE PO SCH ×3 (07:34→23:48)
[2017-11-27] MEDS: METHYLPREDNISOLONE INJ 125 MG/2 ML SDV IV SCH ×2 (07:35→12:29)
[2017-11-27] MEDS: MAGNESIUM OXIDE 400 MG TABLET PO SCH ×3 (07:35→23:46)
[2017-11-27] MEDS: INSULIN LISPRO 100 UNIT/ML 3 ML VIAL SUBCUT PRN ×2 (09:03→12:30)
[2017-11-27] MEDS: CYANOCOBALAMIN (VITAMIN B-12) 1,000 MCG TABLET PO SCH (11:46)
[2017-11-27] MEDS: AMIODARONE HCL 200 MG TABLET PO SCH (11:47)
[2017-11-27] MEDS: DOCUSATE SODIUM 100 MG CAPSULE PO SCH ×2 (11:48→17:17)
[2017-11-27] MEDS: MULTIVITAMIN TABLET PO SCH (11:49)
[2017-11-27] MEDS: APIXABAN 2.5 MG TABLET PO SCH ×2 (11:49→23:49)
[2017-11-27] MEDS: GUAIFENESIN 600 MG TABLET.SA PO SCH ×2 (11:50→23:48)
[2017-11-27] MEDS: FAMOTIDINE 20 MG TABLET PO SCH ×2 (11:51→23:48)
[2017-11-27] MEDS: CEFEPIME 1 GM/D5W RTU 1 GM/50 ML RTUPB IV SCH ×2 (11:52→23:49)
[2017-11-27] MEDS: OSELTAMIVIR PHOSPHATE 6 MG/1 ML SUSP 60 ML PO SCH ×2 (11:55→17:16)
--- NOTE | 2017-11-27 12:38 | PDOC PROGRESS REPORT ---
Subjective Progress Note for:: 11/27/17 Subjective:: The patient is a 77-year-old female with a past medical history of atrial fibrillation, hyperlipidemia, hypertension, asthma, COPD, type 2 diabetes mellitus, GERD, dementia, and depression who is a long-term resident of [facility] who was admitted for acute respiratory failure likely secondary to viral illness in the setting of COPD. The patient is seen on morning rounds. She is found resting in bed comfortably on supplemental oxygen via nasal cannula at 3 L/min. She reports that she is oxygen dependent at 2 L/min. She continues to complain of chills and a productive cough. However, she reports that these are improving. She denies myalgia, dyspnea, chest pain, palpitations. She has no new questions or concerns today. Reason For Visit: ACUTE ON CHRONIC HYPOXIC RESPIRATORY FAILURE Physical Exam Vital Signs: Temp Pulse Resp BP Pulse Ox 98.8 F 89 20 139/67 H 95 11/27/17 10:49 11/27/17 10:49 11/27/17 10:49 11/27/17 10:49 11/27/17 10:49 Intake & Output 11/26/17 11/27/17 11/28/17 06:59 06:59 06:59 Intake Total 3858 770 400 Output Total 750 1150 300 Balance 3108 -380 100 Weight 129.8 kg 130.1 kg General appearance: PRESENT: no acute distress, obese, well-developed, well- nourished Head exam: PRESENT: atraumatic, normocephalic Eye exam: PRESENT: conjunctiva pink, EOMI, PERRLA. ABSENT: scleral icterus Ear exam: PRESENT: normal external ear exam Mouth exam: PRESENT: moist, tongue midline Neck exam: ABSENT: carotid bruit, JVD, lymphadenopathy, thyromegaly Respiratory exam: PRESENT: rhonchi, symmetrical, unlabored, wheezes - Improved from yesterday, other - Supplemental oxygen via nasal cannula at 3 L/min. ABSENT: rales Cardiovascular exam: PRESENT: RRR, +S1, +S2, systolic murmur. ABSENT: diastolic murmur, rubs Pulses: PRESENT: normal dorsalis pedis pul Vascular exam: PRESENT: normal capillary refill GI/Abdominal exam: PRESENT: normal bowel sounds, soft. ABSENT: distended, guarding, mass, organolmegaly, rebound, tenderness Rectal exam: PRESENT: deferred Extremities exam: PRESENT: pedal edema - Trace. 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 ABSENT: motor sensory deficit Psychiatric exam: PRESENT: appropriate affect, normal mood. ABSENT: homicidal ideation, suicidal ideation Skin exam: PRESENT: dry, intact, warm. ABSENT: cyanosis, rash Results Laboratory Results: 11/27/17 04:50 11/27/17 04:50 11/27/17 11/27/17 04:50 04:50 WBC 3.9 L RBC 4.05 Hgb 12.9 Hct 38.7 MCV 96 MCH 31.9 MCHC 33.3 RDW 14.1 H Plt Count 145 L Sodium 140.7 Potassium 3.8 Chloride 99 Carbon Dioxide 34 H Anion Gap 8 BUN 24 H Creatinine 0.55 Est GFR ( Amer) > 60 Est GFR (Non-Af Amer) > 60 Glucose 183 H Calcium 9.0 11/24/17 16:20 Sputum Gram Stain - Final Impressions: Chest CT 11/23/17 00:00 IMPRESSION: Left lower lobe and lingular pneumonia. Chest X-Ray 11/23/17 05:27 IMPRESSION: 1. Cardiomegaly with possible small left pleural effusion. 2. Streaky right basilar opacities may be related to subsegmental atelectasis however developing pneumonic process could produce a similar appearance. Continued radiographic follow-up to resolution recommended. Assessment & Plan - Diagnosis (1) Acute respiratory failure Qualifiers: Respiratory failure complication: hypercapnia Qualified Code(s): J96.02 - Acute respiratory failure with hypercapnia Is this a current diagnosis for this admission?: Yes Plan: Gradual improvement; Secondary to pneumonia in the setting of COPD. Chest CT does demonstrate a left lower lobe and lingular pneumonia. Blood cultures have no growth at 4 days Sputum cultures are pending. MRSA screening is positive. Influenza screening is negative. ABG demonstrated compensated respiratory acidosis. Bicarb is noted to be trending down. The patient has been placed on BiPAP qHS and as needed with supplemental oxygen as needed to maintain O2 sats greater than 88%. The patient has been empirically placed on cefepime. The patient has also been placed on Tamiflu for influenza prophylaxis; she is currently on day 5 of 7. We will continue scheduled duo nebs and IV steroids. Continue Mucinex. Encourage incentive spirometry. (2) Pneumonia Qualifiers: Laterality: right Is this a current diagnosis for this admission?: Yes Plan: Plan as above. (3) COPD exacerbation Is this a current diagnosis for this admission?: Yes Plan: Plan as above. (4) Hyperthyroidism Is this a current diagnosis for this admission?: Yes Plan: The patient is noted to have a TSH of less than 0.01 with a free T4 of 3.08 and Free T3 of 2.15. The patient has been chronically on amiodarone. Cardiology has been consulted; appreciate their evaluation recommendations. (5) Atrial fibrillation Qualifiers: Atrial fibrillation type: chronic Qualified Code(s): I48.2 - Chronic atrial fibrillation Is this a current diagnosis for this admission?: No Plan: Currently normal sinus rhythm; PAF Cardiology has recommended that amiodarone be continued. Appreciate their evaluation and recommendations. Continue chronic anticoagulation with Eliquis 2.5 every 12 hours. (6) Diabetes mellitus type 2 in obese Is this a current diagnosis for this admission?: Yes Plan: The patient is provided consistent carb diet with Accu-Cheks before meals and at bedtime and Humalog for sliding scale coverage. (7) Dehydration Is this a current diagnosis for this admission?: Yes Plan: In the setting of pneumonia with poor oral intake. Continue gentle IV fluid hydration and encourage p.o. fluids. (8) DVT prophylaxis Is this a current diagnosis for this admission?: Yes Plan: Continue the patient's home dose Eliquis. SCDs while in bed. - Time Time Spent with patient: 15-24 minutes Medications reviewed and adjusted accordingly: Yes
[2017-11-27] MEDS ORDERED: METHYLPREDNISOLONE INJ 40 MG/1 ML SDV IV ONE (13:00)
[2017-11-27] MEDS: MINERAL OIL/PETROLATUM,WHITE CREAM 114 GM TP SCH (13:33)
--- NOTE | 2017-11-27 20:14 | PDOC PROGRESS REPORT ---
Subjective Progress Note for:: 11/27/17 Subjective:: The patient is seen on morning rounds. She is found resting in bed comfortably on supplemental oxygen via nasal cannula at 3 L/min. patient also noted to be on intermittent bilevel therapy. Pt is denying any chest arm or neck discomfort. Patient denying any PND, orthopnea. Patient denied any sustained palpitations, dizziness, syncope, near syncope. Patient denying any fever chills. Patient denying any other significant discomfort. Patient is maintaining sinus rhythm. Review of systems: Rest review of systems negative. Medications: Medications have been reviewed. Reason For Visit: ACUTE ON CHRONIC HYPOXIC RESPIRATORY FAILURE Physical Exam Vital Signs: Temp Pulse Resp BP Pulse Ox 98.8 F 75 18 139/67 H 94 11/27/17 10:49 11/27/17 14:06 11/27/17 14:06 11/27/17 10:49 11/27/17 14:06 Intake & Output 11/26/17 11/27/17 11/28/17 06:59 06:59 06:59 Intake Total 3858 770 850 Output Total 750 1150 800 Balance 3108 -380 50 Weight 129.8 kg 130.1 kg Exam: GENERAL: well-nourished and in no acute distress. Alert and oriented x3 HEAD: Atraumatic, normocephalic. EYES: Pupils equal round and reactive to light, extraocular movements intact, sclera anicteric, conjunctiva are normal. ENT: TMs normal, nares patent, oropharynx clear without exudates. Moist mucous membranes. No oral ulcerations or bleeding gums noted NECK: supple without lymphadenopathy. Trachea is central. No cervical or axillary lymphadenopathy noted. Carotids are 2+, JVD WNL LUNGS: Respiration seems nonlabored, no significant accessory muscle action noted. Breath sounds clear to auscultation bilaterally and equal noted. No wheezes rales or rhonchi noted. No significant dullness noted on percussion. CHEST: Palpation of the chest wall shows no significant chest wall tenderness. No other significant abnormalities noted. HEART: Opal COUNSELOR AIDE, No PSH, 1/6 MICKEY aortic area, 1/6 son systolic murmur mitral area, no rubs, no gallops. ABDOMEN: Soft, no significant tenderness appreciated, normoactive bowel sounds. No guarding, no rebound. No rigidity noted . No masses appreciated. EXTREMITIES: Pedal pulses are 1-2+, no calf tenderness noted. No clubbing or cyanosis.1+ pedal edema noted NEUROLOGICAL: Findings of dense left hemiparesis.. PSYCH: Normal mood, normal affect. Judgment and insight within normal limits. SKIN: No significant ecchymosis, rash, ulcerations or signs of pruritus noted. MUSCULOSKELETAL EXAM: No significant joint swelling noted. Results Laboratory Results: 11/27/17 04:50 11/27/17 04:50 11/27/17 11/27/17 04:50 04:50 WBC 3.9 L RBC 4.05 Hgb 12.9 Hct 38.7 MCV 96 MCH 31.9 MCHC 33.3 RDW 14.1 H Plt Count 145 L Sodium 140.7 Potassium 3.8 Chloride 99 Carbon Dioxide 34 H Anion Gap 8 BUN 24 H Creatinine 0.55 Est GFR ( Amer) > 60 Est GFR (Non-Af Amer) > 60 Glucose 183 H Calcium 9.0 11/24/17 16:20 Sputum Gram Stain - Final 11/24/17 16:20 Sputum Sputum Culture - Final NORMAL MICK EKG Comments: Telemetry shows sinus rhythm Impressions: Chest CT 11/23/17 00:00 IMPRESSION: Left lower lobe and lingular pneumonia. Chest X-Ray 11/23/17 05:27 IMPRESSION: 1. Cardiomegaly with possible small left pleural effusion. 2. Streaky right basilar opacities may be related to subsegmental atelectasis however developing pneumonic process could produce a similar appearance. Continued radiographic follow-up to resolution recommended. Assessment & Plan - Diagnosis (1) Acute respiratory failure Qualifiers: Respiratory failure complication: hypercapnia Qualified Code(s): J96.02 - Acute respiratory failure with hypercapnia Is this a current diagnosis for this admission?: Yes (2) Diabetes mellitus type 2 in obese Is this a current diagnosis for this admission?: Yes (3) Hyperthyroidism Is this a current diagnosis for this admission?: Yes (4) Atrial fibrillation Qualifiers: Atrial fibrillation type: paroxysmal Qualified Code(s): I48.0 - Paroxysmal atrial fibrillation Is this a current diagnosis for this admission?: No (5) COPD exacerbation Is this a current diagnosis for this admission?: Yes - Notes Notes: Patient has shown gradual but significant improvement over time. At this point continue on current management plans. I will be out of town over the weekend but will return on Thursday. Anyway patient has been stable from cardiac standpoint. - Time Time with patient: 15-25 minutes - CODE STATUS : was discussed, patient remains DO NOT RESUSCITATE. Surrogate decision-maker unchanged. Multiple medical problems were addressed. More than 50% of the time spent coordinating care, discussing management plans with involved caregivers. Management plans discussed with involved personnels. Medical decision making was of moderate to high complexity, patient's has multiple comorbidities.
[2017-11-27] MEDS: LORAZEPAM 0.5 MG TABLET PO PRN (20:23)
[2017-11-27] MEDS ORDERED: LIDOCAINE 1% INJ-PF (10 MG/ML) 30 ML SDV ONE (21:03)
--- NOTE | 2017-11-27 23:03 | PDOC CONSULTATION ---
Consultation Consult Date: 11/27/17 Attending physician:: Gabby Jones Consult reason:: Central line placement History of Present Illness Admission Date/PCP: 11/23/17 07:40 SAMMI VAZQUEZ MD History of Present Illness: PAN BUTLER is a 77 year old female resents to the emergency room from [facility] with complaint of cough and shortness of breath. Patient reports that she has been sick for the last 2-3 days. Patient is not able to give very good history however the ED states that patient was not able to maintain sats in the emergency department and they had to place her on BiPAP. ED also reported at [facility] majority of the patients are receiving Tamiflu for the flu or for flu prevention. Patient did state that she is having body aches. This history was reviewed, and confirmed. Patient on repeated questioning denied any chest pain. Patient has a dense left hemiparesis. The patient has a difficult peripheral intravenous access and needs a central line. I have been consulted for a central line insertion. Past Medical History Cardiac Medical History: Reports: Atrial Fibrillation - paroxysmal reportedly, Hyperlipidema, Hypertension Pulmonary Medical History: Reports: Asthma, Chronic Obstructive Pulmonary Disease (COPD) Endocrine Medical History: Reports: Diabetes Mellitus Type 2 GI Medical History: Reports: Gastroesophageal Reflux Disease Psychiatric Medical History: Reports: Dementia, Depression Past Surgical History Past Surgical History: Reports: Appendectomy, Cholecystectomy, Tonsillectomy Social History Smoking Status: Former Smoker Frequency of Alcohol Use: None Hx Recreational Drug Use: No Drugs: None Hx Prescription Drug Abuse: No - Advance Directive Resuscitation Status: Do Not Resuscitate Family History Family History: Hypertension Parental Family History Reviewed: No Children Family History Reviewed: Unknown Sibling(s) Family History Reviewed.: Unknown Medication/Allergy Home Medications: Acetaminophen [Tylenol Extra Strength] 1,000 mg PO Q8HP PRN 11/23/17 Amiodarone HCl [Cordarone 200 mg Tablet] 200 mg PO DAILY 11/23/17 Apixaban [Eliquis 2.5 mg Tablet] 2.5 mg PO Q12 11/23/17 Atorvastatin Calcium [Lipitor 20 mg Tablet] 20 mg PO QHS 11/23/17 Cyanocobalamin (Vitamin B-12) [Vitamin B12] 1,000 mcg PO DAILY 11/23/17 Docusate Sodium [Colace 100 mg Capsule] 100 mg PO BID 11/23/17 Donepezil HCl [Aricept 5 mg Tablet] 10 mg PO QHS 11/23/17 Gabapentin [Neurontin 100 mg Capsule] 100 mg PO Q8 11/23/17 Hydrocodone/Acetaminophen [[place] 10-325 mg Tablet] 1 tab PO Q4HP PRN 11/23/17 Ipratropium/Albuterol Sulfate [Duoneb 3 ml Ampul] 3 ml NEB RTQ6HP PRN 11/23/17 Lorazepam [Ativan 0.5 mg Tablet] 0.5 mg PO Q6HP PRN 11/23/17 Magnesium Oxide [Mag-Ox 400 mg Tablet] 400 mg PO Q8 11/23/17 Multivitamin [Multivitamins] 1 each PO DAILY 11/23/17 Olopatadine HCl [Pataday] 2.5 ml OU DAILY 11/23/17 Ondansetron HCl [Zofran 4 mg Tablet] 1 tab PO Q8HP PRN 11/23/17 Oseltamivir Phosphate [Tamiflu 75 mg Capsule] 75 mg PO DAILY 11/23/17 Pantoprazole Sodium [Protonix] 40 mg PO DAILY 11/23/17 Quetiapine Fumarate [Seroquel 25 mg Tablet] 25 mg PO QHS 11/23/17 Sennosides [Senna] 8.6 mg PO QHS 11/23/17 Allergies/Adverse Reactions: Penicillins Allergy (Verified 01/31/15 18:27) Review of Systems Constitutional: PRESENT: as per HPI Cardiovascular: PRESENT: edema Respiratory: PRESENT: dyspnea Gastrointestinal: ABSENT: as per HPI, abdominal pain, bloating, coffee ground emesis, constipation, diarrhea, dysphagia, heartburn, hematemesis, hematochezia , melena, nausea, vomiting, other Genitourinary: ABSENT: as per HPI, difficulty urinating, dysuria, hematuria, nocturia, other Musculoskeletal: ABSENT: as per HPI, back pain, deformity, joint swelling, muscle weakness, other Integumentary: ABSENT: as per HPI, diaphoresis, erythema, lesions, pruritus, rash, wounds, other Neurological: PRESENT: other - old left hemiplegia Physical Exam Vital Signs: Temp Pulse Resp BP Pulse Ox 98.4 F 77 20 171/82 H 96 11/27/17 20:11 11/27/17 20:19 11/27/17 20:19 11/27/17 20:11 11/27/17 20:19 Intake & Output 11/26/17 11/27/17 11/28/17 06:59 06:59 06:59 Intake Total 3858 770 850 Output Total 750 1150 800 Balance 3108 -380 50 Weight 129.8 kg 130.1 kg General appearance: PRESENT: morbidly obese Head exam: PRESENT: normocephalic Eye exam: PRESENT: conjunctiva pink Ear exam: PRESENT: normal external ear exam Mouth exam: PRESENT: moist Neck exam: PRESENT: other - short neck Respiratory exam: PRESENT: other - vesicular sounds bilaterally Cardiovascular exam: PRESENT: +S1, +S2 GI/Abdominal exam: PRESENT: normal bowel sounds, soft Neurological exam: PRESENT: alert, awake, oriented to person, oriented to place , oriented to time, oriented to situation, other - left hemiplegia Results Laboratory Results: 11/27/17 04:50 11/27/17 04:50 11/27/17 11/27/17 04:50 04:50 WBC 3.9 L RBC 4.05 Hgb 12.9 Hct 38.7 MCV 96 MCH 31.9 MCHC 33.3 RDW 14.1 H Plt Count 145 L Sodium 140.7 Potassium 3.8 Chloride 99 Carbon Dioxide 34 H Anion Gap 8 BUN 24 H Creatinine 0.55 Est GFR ( Amer) > 60 Est GFR (Non-Af Amer) > 60 Glucose 183 H Calcium 9.0 11/24/17 16:20 Sputum Gram Stain - Final 11/24/17 16:20 Sputum Sputum Culture - Final NORMAL MICK Impressions: Chest CT 11/23/17 00:00 IMPRESSION: Left lower lobe and lingular pneumonia. Chest X-Ray 11/23/17 05:27 IMPRESSION: 1. Cardiomegaly with possible small left pleural effusion. 2. Streaky right basilar opacities may be related to subsegmental atelectasis however developing pneumonic process could produce a similar appearance. Continued radiographic follow-up to resolution recommended. Assessment & Plan - Diagnosis (1) Phleboscleroses Plan: For central line insertion - Time Time Spent: 50 to 70 Minutes
--- NOTE | 2017-11-27 23:11 | Operative Report ---
Operative Report DATE OF SURGERY: 11/27/17 PREOPERATIVE DIAGNOSIS: Phleboscleroses POSTOPERATIVE DIAGNOSIS: Phleboscleroses OPERATION: Real-time Ultrasound-guided right internal jugular vein triple lumen catheter insertion. SURGEON: Gabby Jones ANESTHESIA: Local TISSUE REMOVED OR ALTERED: None COMPLICATIONS: None ESTIMATED BLOOD LOSS: 5ml INTRAOPERATIVE FINDINGS: patent right internal jugular vein PROCEDURE: The procedure was performed in the patient's room on her bed. She was positioned trendelenberg. Bilateral upper chest, neck and chin was prepped with chloraprep and sterile drapes laid. Under sterile aseptic conditions, using real -time ultrasound guidance, the right internal jugular vein was localized and accessed with a needle and a guide-wire passed through the needle into the vein. Using the modified Seldinger technique, a 7 Fr, 20 cm triple lumen catheter was placed in the right internal jugular vein. The catheter lumina were aspirated freely and flushed with saline. The catheter was anchored to skin at the 18cm kayla with 3-0 silk stitch and a biopatch and tegaderm dressing applied. The patient tolerated the procedure well and a post-procedure chest xray was ordered.
[2017-11-27] MEDS: DONEPEZIL HCL 5 MG TABLET PO SCH (23:47)
[2017-11-27] MEDS: QUETIAPINE FUMARATE 25 MG TABLET PO SCH (23:47)
[2017-11-27] MEDS: ATORVASTATIN CALCIUM 20 MG TABLET PO SCH (23:48)
[2017-11-27] MEDS: HYDROCODONE/ACETAMINOPHEN 10-325 MG TABLET PO PRN (23:48)
[2017-11-27] MEDS: SENNOSIDES/DOCUSATE 8.6-50 MG 1 EACH TABLET PO SCH (23:48)
[2017-11-27] MEDS: METHYLPREDNISOLONE INJ 40 MG/1 ML SDV IV SCH (23:50)
[2017-11-28] MEDS: INSULIN LISPRO 100 UNIT/ML 3 ML VIAL SUBCUT PRN ×3 (01:54→17:20)
--- NOTE | 2017-11-28 02:04 | RADIOLOGY REPORT (SQ) ---
EXAM DESCRIPTION: CHEST SINGLE VIEW COMPLETED DATE/TIME: 11/28/2017 12:47 am REASON FOR STUDY: CVC PLACEMENT COMPARISON: Chest x-ray and CT chest 11/23/2017. EXAM PARAMETERS: NUMBER OF VIEWS: One view. TECHNIQUE: Single frontal radiographic view of the chest acquired. RADIATION DOSE: NA LIMITATIONS: None. FINDINGS: LUNGS AND PLEURA: Airspace opacities noted at the left lung base. No sizable pleural effu jayla. No pneumothorax. MEDIASTINUM AND HILAR STRUCTURES: No masses. Contour normal. HEART AND VASCULAR STRUCTURES: The heart is upper normal limit in size. Normal vasculature. BONES: No acute findings. HARDWARE: Right IJ central line with the tip overlying the region of the SVC. IMPRESSION: No pneumothorax status post central line placement. Airspace opacity at the left lung b ase, may represent atelectasis or pneumonia. TECHNICAL DOCUMENTATION: JOB ID: [id number] [employer]- All Rights Reserved
[2017-11-28] MEDS: IPRATROPIUM/ALBUTEROL 0.5-2.5 MG/3 ML AMPUL NEB SCH ×4 (02:21→20:33)
[2017-11-28 06:06] LABS: HEMATOCRIT 38.2 % (36.0-47.0); HEMOGLOBIN 12.3 g/dL (12.0-15.5); MEAN CORPUSCULAR HEMOGLOBIN 31.1 pg (27.0-33.4); MEAN CORPUSCULAR HGB CONC 32.3 g/dL (32.0-36.0); MEAN CORPUSCULAR VOLUME 96 fl (80-97); PLATELET COUNT 144 10^3/uL (150-450); RED BLOOD COUNT 3.97 10^6/uL (3.72-5.28); RED CELL DISTRIBUTION WIDTH 14.4 % (11.5-14.0); WHITE BLOOD COUNT 4.1 10^3/uL (4.0-10.5)
[2017-11-28 06:26] LABS: ANION GAP 5 (5-19); BLOOD UREA NITROGEN 23 mg/dL (7-20); CALCIUM 9.1 mg/dL (8.4-10.2); CARBON DIOXIDE 34 mmol/L (22-30); CHLORIDE 102 mmol/L (98-107); GLUCOSE 136 mg/dL (75-110); POTASSIUM 3.9 mmol/L (3.6-5.0); SODIUM 140.9 mmol/L (137-145)
[2017-11-28] MEDS: METHYLPREDNISOLONE INJ 40 MG/1 ML SDV IV SCH ×3 (07:28→23:14)
[2017-11-28] MEDS: GABAPENTIN 100 MG CAPSULE PO SCH ×3 (07:29→23:16)
[2017-11-28] MEDS: MAGNESIUM OXIDE 400 MG TABLET PO SCH ×3 (07:29→23:14)
[2017-11-28] MEDS: MULTIVITAMIN TABLET PO SCH (11:17)
[2017-11-28] MEDS: FAMOTIDINE 20 MG TABLET PO SCH ×2 (11:17→23:15)
[2017-11-28] MEDS: DOCUSATE SODIUM 100 MG CAPSULE PO SCH ×2 (11:17→17:20)
[2017-11-28] MEDS: GUAIFENESIN 600 MG TABLET.SA PO SCH ×2 (11:18→23:15)
[2017-11-28] MEDS: CYANOCOBALAMIN (VITAMIN B-12) 1,000 MCG TABLET PO SCH (11:18)
[2017-11-28] MEDS: CEFEPIME 1 GM/D5W RTU 1 GM/50 ML RTUPB IV SCH ×2 (11:18→23:13)
[2017-11-28] MEDS: APIXABAN 2.5 MG TABLET PO SCH ×2 (11:18→23:45)
[2017-11-28] MEDS: AMIODARONE HCL 200 MG TABLET PO SCH (11:18)
[2017-11-28] MEDS: OSELTAMIVIR PHOSPHATE 6 MG/1 ML SUSP 60 ML PO SCH (11:19)
[2017-11-28] MEDS: HYDROCODONE/ACETAMINOPHEN 10-325 MG TABLET PO PRN ×3 (11:29→23:45)
[2017-11-28] MEDS: MINERAL OIL/PETROLATUM,WHITE CREAM 114 GM TP SCH (13:38)
--- NOTE | 2017-11-28 13:48 | PDOC PROGRESS REPORT ---
Subjective Progress Note for:: 11/28/17 Subjective:: The patient is a 77-year-old female with a past medical history of atrial fibrillation, hyperlipidemia, hypertension, asthma, COPD, type 2 diabetes mellitus, GERD, dementia, and depression who is a long-term resident of [facility] who was admitted for acute respiratory failure secondary to pneumonia in the setting of COPD. The patient is seen on morning rounds. She is found resting in bed comfortably on BiPAP. She is oxygen dependent at home on 2 L/min. She continues to feel chilled. She has no new questions or concerns today. Reason For Visit: ACUTE ON CHRONIC HYPOXIC RESPIRATORY FAILURE Physical Exam Vital Signs: Temp Pulse Resp BP Pulse Ox 97.9 F 73 20 158/72 H 94 11/28/17 11:48 11/28/17 11:48 11/28/17 11:48 11/28/17 11:48 11/28/17 11:48 Intake & Output 11/27/17 11/28/17 11/29/17 06:59 06:59 06:59 Intake Total 2270 3850 414 Output Total 1150 1675 275 Balance 1120 2175 139 Weight 130.1 kg 134.4 kg General appearance: PRESENT: no acute distress, obese, well-developed, well- nourished Head exam: PRESENT: atraumatic, normocephalic Eye exam: PRESENT: conjunctiva pink, EOMI, PERRLA. ABSENT: scleral icterus Ear exam: PRESENT: normal external ear exam Mouth exam: PRESENT: moist, tongue midline Neck exam: ABSENT: carotid bruit, JVD, lymphadenopathy, thyromegaly Respiratory exam: PRESENT: rhonchi, symmetrical, unlabored, wheezes - Throughout. ABSENT: rales Cardiovascular exam: PRESENT: RRR, +S1, +S2, systolic murmur. ABSENT: diastolic murmur, rubs Pulses: PRESENT: normal dorsalis pedis pul Vascular exam: PRESENT: normal capillary refill GI/Abdominal exam: PRESENT: normal bowel sounds, soft. ABSENT: distended, guarding, mass, organolmegaly, rebound, tenderness Rectal exam: PRESENT: deferred Extremities exam: PRESENT: full ROM. ABSENT: calf tenderness, clubbing, pedal edema Neurological exam: PRESENT: alert, awake, oriented to person, oriented to place , oriented to time, oriented to situation, CN II-XII grossly intact. ABSENT: motor sensory deficit Psychiatric exam: PRESENT: appropriate affect, normal mood. ABSENT: homicidal ideation, suicidal ideation Skin exam: PRESENT: dry, intact, warm. ABSENT: cyanosis, rash Results Laboratory Results: 11/28/17 05:15 11/28/17 05:15 11/28/17 11/28/17 05:15 05:15 WBC 4.1 RBC 3.97 Hgb 12.3 Hct 38.2 MCV 96 MCH 31.1 MCHC 32.3 RDW 14.4 H Plt Count 144 L Sodium 140.9 Potassium 3.9 Chloride 102 Carbon Dioxide 34 H Anion Gap 5 BUN 23 H Creatinine 0.49 L Est GFR ( Amer) > 60 Est GFR (Non-Af Amer) > 60 Glucose 136 H Calcium 9.1 11/23/17 11:56 Blood Blood Culture - Final NO GROWTH IN 5 DAYS 11/23/17 12:09 Blood Blood Culture - Final NO GROWTH IN 5 DAYS 11/24/17 16:20 Sputum Gram Stain - Final 11/24/17 16:20 Sputum Sputum Culture - Final NORMAL MAYNOR Impressions: Chest CT 11/23/17 00:00 IMPRESSION: Left lower lobe and lingular pneumonia. Chest X-Ray 11/28/17 00:00 IMPRESSION: No pneumothorax status post central line placement. Airspace opacity at the left lung base, may represent atelectasis or pneumonia. Assessment & Plan - Diagnosis (1) Acute respiratory failure Qualifiers: Respiratory failure complication: hypercapnia Qualified Code(s): J96.02 - Acute respiratory failure with hypercapnia Is this a current diagnosis for this admission?: Yes Plan: Gradual improvement; Secondary to pneumonia in the setting of COPD. Chest CT does demonstrate a left lower lobe and lingular pneumonia. Final Blood cultures have no growth. Sputum cultures: Normal maynor. MRSA screening is positive. Influenza screening is negative. ABG demonstrated compensated respiratory acidosis. Bicarb is noted to be trending down. The patient has been placed on BiPAP qHS and as needed with supplemental oxygen as needed to maintain O2 sats greater than 88%. Will ask nursing to encourage BiPAP use; 4 hours/day and qHS. Continue cefepime. The patient has also been placed on Tamiflu for influenza prophylaxis; she is currently on day 6 of 7. We will continue scheduled duo nebs and IV steroids. Continue Mucinex. Encourage incentive spirometry. (2) Pneumonia Qualifiers: Laterality: right Is this a current diagnosis for this admission?: Yes Plan: Plan as above. (3) COPD exacerbation Is this a current diagnosis for this admission?: Yes Plan: Plan as above. (4) Hyperthyroidism Is this a current diagnosis for this admission?: Yes Plan: The patient is noted to have a TSH of less than 0.01 with a free T4 of 3.08 and Free T3 of 2.15. The patient has been chronically on amiodarone. Cardiology has been consulted; appreciate their evaluation and recommendations. (5) Atrial fibrillation Qualifiers: Atrial fibrillation type: paroxysmal Qualified Code(s): I48.0 - Paroxysmal atrial fibrillation Is this a current diagnosis for this admission?: No Plan: Currently normal sinus rhythm; PAF Cardiology has recommended that amiodarone be continued. Appreciate their evaluation and recommendations. Continue chronic anticoagulation with Eliquis 2.5 every 12 hours. (6) Diabetes mellitus type 2 in obese Is this a current diagnosis for this admission?: Yes Plan: The patient is provided consistent carb diet with Accu-Cheks before meals and at bedtime with Humalog for sliding scale coverage. (7) Dehydration Is this a current diagnosis for this admission?: Yes Plan: Improving; BUN trending down. Secondary to pneumonia with poor oral intake. Continue gentle IV fluid hydration and encourage p.o. fluids. (8) Hypertension Is this a current diagnosis for this admission?: Yes Plan: Persistently elevated hypertension; will start low-dose Norvasc. (9) DVT prophylaxis Is this a current diagnosis for this admission?: Yes Plan: Continue the patient's home dose Eliquis. SCDs while in bed. - Time Time Spent with patient: 15-24 minutes Medications reviewed and adjusted accordingly: Yes Anticipated discharge: SNF - Pt is a permanent resident.
[2017-11-28] MEDS: NORMAL SALINE 1000 ML 1,000 ML IV PRN (15:05)
[2017-11-28] MEDS ORDERED: AMLODIPINE BESYLATE 2.5 MG TABLET PO ONE (15:30)
[2017-11-28 17:53] LABS: FREE T4 (FREE THYROXINE) 2.76 ng/dL (0.78-2.19)
[2017-11-28 18:10] LABS: THYROID STIMULATING HORMONE < 0.01 uIU/mL (0.47-4.68)
--- NOTE | 2017-11-28 20:08 | RADIOLOGY REPORT (SQ) ---
EXAM DESCRIPTION: U/S THYROID/SFT TISS HD NECK COMPLETED DATE/TIME: 11/28/2017 6:50 pm REASON FOR STUDY: thyrotoxicosis COMPARISON: None. TECHNIQUE: Dynamic and static bello-scale images acquired of the thyroid gland. Selected additional c olor/power Doppler images recorded. All images stored to PACS. LIMITATIONS: None. FINDINGS: RIGHT LOBE: Normal size. Homogeneous echotexture. No cystic or solid masses. LEFT LOBE: Normal size. Homogeneous echotexture. No cystic or solid masses. ISTHMUS: Normal size. Homogeneous echotexture. No cystic or solid masses. OTHER: No other significant finding. IMPRESSION: NORMAL THYROID ULTRASOUND. TECHNICAL DOCUMENTATION: JOB ID: [id number] [employer]- All Rights Reserved
[2017-11-28] MEDS: QUETIAPINE FUMARATE 25 MG TABLET PO SCH (23:15)
[2017-11-28] MEDS: ATORVASTATIN CALCIUM 20 MG TABLET PO SCH (23:15)
[2017-11-28] MEDS: AMLODIPINE BESYLATE 2.5 MG TABLET PO SCH (23:16)
[2017-11-28] MEDS: SENNOSIDES/DOCUSATE 8.6-50 MG 1 EACH TABLET PO SCH (23:17)
[2017-11-28] MEDS: LORAZEPAM 0.5 MG TABLET PO PRN (23:17)
[2017-11-28] MEDS: DONEPEZIL HCL 5 MG TABLET PO SCH (23:17)
[2017-11-29] MEDS: NORMAL SALINE 1000 ML 1,000 ML IV PRN ×3 (00:59→17:58)
[2017-11-29] MEDS: IPRATROPIUM/ALBUTEROL 0.5-2.5 MG/3 ML AMPUL NEB SCH ×4 (01:35→19:54)
[2017-11-29] MEDS: MAGNESIUM OXIDE 400 MG TABLET PO SCH ×3 (06:07→22:36)
[2017-11-29] MEDS: METHYLPREDNISOLONE INJ 40 MG/1 ML SDV IV SCH ×3 (06:07→22:37)
[2017-11-29] MEDS: GABAPENTIN 100 MG CAPSULE PO SCH ×3 (06:07→22:36)
[2017-11-29 07:03] LABS: HEMOGLOBIN 12.8 g/dL (12.0-15.5); MEAN CORPUSCULAR HEMOGLOBIN 31.6 pg (27.0-33.4); MEAN CORPUSCULAR HGB CONC 32.8 g/dL (32.0-36.0); MEAN CORPUSCULAR VOLUME 96 fl (80-97); PLATELET COUNT 122 10^3/uL (150-450); RED BLOOD COUNT 4.04 10^6/uL (3.72-5.28); RED CELL DISTRIBUTION WIDTH 14.3 % (11.5-14.0); WHITE BLOOD COUNT 5.1 10^3/uL (4.0-10.5)
[2017-11-29 07:23] LABS: ANION GAP 6 (5-19); BLOOD UREA NITROGEN 26 mg/dL (7-20); CALCIUM 9.2 mg/dL (8.4-10.2); CARBON DIOXIDE 29 mmol/L (22-30); CHLORIDE 104 mmol/L (98-107); GLUCOSE 158 mg/dL (75-110); POTASSIUM 4.1 mmol/L (3.6-5.0)
[2017-11-29] MEDS: CEFEPIME 1 GM/D5W RTU 1 GM/50 ML RTUPB IV SCH ×2 (10:02→22:39)
[2017-11-29] MEDS: INSULIN LISPRO 100 UNIT/ML 3 ML VIAL SUBCUT PRN ×3 (10:02→22:36)
[2017-11-29] MEDS: APIXABAN 2.5 MG TABLET PO SCH ×2 (10:18→22:35)
[2017-11-29] MEDS: CYANOCOBALAMIN (VITAMIN B-12) 1,000 MCG TABLET PO SCH (10:18)
[2017-11-29] MEDS: FAMOTIDINE 20 MG TABLET PO SCH ×2 (10:18→22:36)
[2017-11-29] MEDS: MULTIVITAMIN TABLET PO SCH (10:19)
[2017-11-29] MEDS: DOCUSATE SODIUM 100 MG CAPSULE PO SCH ×2 (10:19→17:58)
[2017-11-29] MEDS: GUAIFENESIN 600 MG TABLET.SA PO SCH ×2 (10:19→22:36)
--- NOTE | 2017-11-29 11:00 | PDOC PROGRESS REPORT ---
Subjective Progress Note for:: 11/29/17 Subjective:: The patient is a 77-year-old female with a past medical history of atrial fibrillation, hyperlipidemia, hypertension, asthma, COPD, type 2 diabetes mellitus, GERD, dementia, and depression who is a long-term resident of [facility] who was admitted for acute respiratory failure secondary to pneumonia in the setting of COPD. The patient is seen on morning rounds. She is found resting in bed comfortably on supplemental oxygen at 3 L/min; the patient is O2 dependent at 2 L/min. she states that her breathing is much improved and at the frequency of her cough has decreased. She states that she is feeling well enough to go home today. Nursing reports that the patient was agreeable to wearing the BiPAP intermittently throughout the day yesterday but did not use BiPAP overnight. She has no new questions or concerns today. Reason For Visit: ACUTE ON CHRONIC HYPOXIC RESPIRATORY FAILURE Physical Exam Vital Signs: Temp Pulse Resp BP Pulse Ox 98.6 F 80 16 147/71 H 98 11/29/17 08:50 11/29/17 08:50 11/29/17 08:50 11/29/17 08:50 11/29/17 08:50 Intake & Output 11/28/17 11/29/17 11/30/17 06:59 06:59 06:59 Intake Total 3850 2260 Output Total 1675 775 Balance 2175 1485 Weight 134.4 kg 133.5 kg General appearance: PRESENT: no acute distress, morbidly obese, well-developed, well-nourished Head exam: PRESENT: atraumatic, normocephalic Eye exam: PRESENT: conjunctiva pink, EOMI, PERRLA. ABSENT: scleral icterus Ear exam: PRESENT: normal external ear exam Mouth exam: PRESENT: moist, tongue midline Teeth exam: PRESENT: poor dentation Neck exam: ABSENT: carotid bruit, JVD, lymphadenopathy, thyromegaly Respiratory exam: PRESENT: clear to auscultation woo, symmetrical, unlabored, wheezes - Occasional expiratory; much improved from yesterday. ABSENT: rales, rhonchi Cardiovascular exam: PRESENT: RRR, +S1, +S2, systolic murmur. ABSENT: diastolic murmur, rubs Pulses: PRESENT: normal dorsalis pedis pul Vascular exam: PRESENT: normal capillary refill GI/Abdominal exam: PRESENT: normal bowel sounds, soft. ABSENT: distended, guarding, mass, organolmegaly, rebound, tenderness Rectal exam: PRESENT: deferred Extremities exam: PRESENT: full ROM, pedal edema - +1 pitting. ABSENT: calf tenderness, clubbing Neurological exam: PRESENT: alert, awake, oriented to person, oriented to place , oriented to time, oriented to situation, CN II-XII grossly intact. ABSENT: motor sensory deficit Psychiatric exam: PRESENT: appropriate affect, normal mood. ABSENT: homicidal ideation, suicidal ideation Skin exam: PRESENT: dry, intact, warm. ABSENT: cyanosis, rash Results Laboratory Results: 11/29/17 06:00 11/29/17 06:00 11/28/17 11/29/17 11/29/17 05:15 06:00 06:00 WBC 5.1 RBC 4.04 Hgb 12.8 Hct 39.0 MCV 96 MCH 31.6 MCHC 32.8 RDW 14.3 H Plt Count 122 L Sodium Potassium Chloride Carbon Dioxide Anion Gap BUN Creatinine Est GFR ( Amer) Est GFR (Non-Af Amer) Glucose Calcium TSH < 0.01 L Free T4 2.76 H Free T3 pg/mL 2.12 L 11/29/17 06:00 WBC RBC Hgb Hct MCV MCH MCHC RDW Plt Count Sodium 139.0 Potassium 4.1 Chloride 104 Carbon Dioxide 29 Anion Gap 6 BUN 26 H Creatinine 0.48 L Est GFR ( Amer) > 60 Est GFR (Non-Af Amer) > 60 Glucose 158 H Calcium 9.2 TSH Free T4 Free T3 pg/mL 11/23/17 11:56 Blood Blood Culture - Final NO GROWTH IN 5 DAYS 11/23/17 12:09 Blood Blood Culture - Final NO GROWTH IN 5 DAYS Impressions: Chest CT 11/23/17 00:00 IMPRESSION: Left lower lobe and lingular pneumonia. Chest X-Ray 11/28/17 00:00 IMPRESSION: No pneumothorax status post central line placement. Airspace opacity at the left lung base, may represent atelectasis or pneumonia. Thyroid Ultrasound 11/28/17 00:00 IMPRESSION: NORMAL THYROID ULTRASOUND. Assessment & Plan - Diagnosis (1) Acute respiratory failure Qualifiers: Respiratory failure complication: hypercapnia Qualified Code(s): J96.02 - Acute respiratory failure with hypercapnia Is this a current diagnosis for this admission?: Yes Plan: Improved; Secondary to pneumonia in the setting of COPD. Chest CT does demonstrate a left lower lobe and lingular pneumonia. Final Blood cultures have no growth. Sputum cultures: Normal maynor. MRSA screening is positive. Influenza screening is negative. ABG demonstrated compensated respiratory acidosis. Bicarb now normal. The patient has been placed on BiPAP qHS and as needed with supplemental oxygen as needed to maintain O2 sats greater than 88%. Will ask nursing to encourage BiPAP use; 4 hours/day and qHS. Continue cefepime; currently on day 7. The patient has completed Tamiflu influenza prophylaxis. We will continue scheduled duo nebs. We will begin weaning IV Solu-Medrol. Continue Mucinex. Encourage incentive spirometry. (2) Pneumonia Qualifiers: Laterality: right Is this a current diagnosis for this admission?: Yes Plan: Plan as above. (3) COPD exacerbation Is this a current diagnosis for this admission?: Yes Plan: Will start the patient on Spiriva for COPD maintenance. Plan as above. (4) Hyperthyroidism Is this a current diagnosis for this admission?: Yes Plan: The patient is noted to have a TSH of less than 0.01 with a free T4 of 3.08 and Free T3 of 2.15. Thyroid ultrasound was normal. Cardiology has been consulted as the patient is chronically on amiodarone; appreciate their evaluation and recommendations. (5) Atrial fibrillation Qualifiers: Atrial fibrillation type: paroxysmal Qualified Code(s): I48.0 - Paroxysmal atrial fibrillation Is this a current diagnosis for this admission?: No Plan: Currently normal sinus rhythm; PAF Cardiology has recommended that amiodarone be continued. Appreciate their evaluation and recommendations. Continue chronic anticoagulation with Eliquis 2.5 every 12 hours. (6) Diabetes mellitus type 2 in obese Is this a current diagnosis for this admission?: Yes Plan: The patient is provided consistent carb diet with Accu-Cheks before meals and at bedtime with Humalog for sliding scale coverage. (7) Dehydration Is this a current diagnosis for this admission?: Yes Plan: Improving; BUN trending down and likely remains elevated secondary to glucocorticoid use. We will discontinue IV fluids. Continue to encourage p.o. fluids. (8) Hypertension Is this a current diagnosis for this admission?: Yes Plan: Persistently elevated hypertension; will start low-dose Norvasc. (9) DVT prophylaxis Is this a current diagnosis for this admission?: Yes Plan: Continue the patient's home dose Eliquis. SCDs while in bed. - Time Time Spent with patient: 25-34 minutes Medications reviewed and adjusted accordingly: Yes Anticipated discharge: SNF - Patient is a permanent resident of [facility] Within: within 48 hours
[2017-11-29] MEDS: MINERAL OIL/PETROLATUM,WHITE CREAM 114 GM TP SCH (13:26)
[2017-11-29] MEDS: ACETAMINOPHEN 325 MG TABLET PO PRN (17:57)
[2017-11-29] MEDS: LORAZEPAM 0.5 MG TABLET PO PRN (22:32)
[2017-11-29] MEDS: HYDROCODONE/ACETAMINOPHEN 10-325 MG TABLET PO PRN (22:32)
[2017-11-29] MEDS: ATORVASTATIN CALCIUM 20 MG TABLET PO SCH (22:36)
[2017-11-29] MEDS: QUETIAPINE FUMARATE 25 MG TABLET PO SCH (22:36)
[2017-11-29] MEDS: AMLODIPINE BESYLATE 2.5 MG TABLET PO SCH (22:36)
[2017-11-29] MEDS: DONEPEZIL HCL 5 MG TABLET PO SCH (22:36)
[2017-11-29] MEDS: SENNOSIDES/DOCUSATE 8.6-50 MG 1 EACH TABLET PO SCH (23:04)
[2017-11-30] MEDS: IPRATROPIUM/ALBUTEROL 0.5-2.5 MG/3 ML AMPUL NEB SCH ×4 (01:23→20:19)
[2017-11-30] MEDS: NORMAL SALINE 1000 ML 1,000 ML IV PRN (04:04)
[2017-11-30] MEDS: METHYLPREDNISOLONE INJ 40 MG/1 ML SDV IV SCH (06:05)
[2017-11-30] MEDS: GABAPENTIN 100 MG CAPSULE PO SCH ×3 (06:05→23:50)
[2017-11-30] MEDS: MAGNESIUM OXIDE 400 MG TABLET PO SCH ×3 (06:06→23:52)
[2017-11-30] MEDS: FAMOTIDINE 20 MG TABLET PO SCH ×2 (10:05→23:53)
[2017-11-30] MEDS: CYANOCOBALAMIN (VITAMIN B-12) 1,000 MCG TABLET PO SCH (10:05)
[2017-11-30] MEDS: CEFEPIME 1 GM/D5W RTU 1 GM/50 ML RTUPB IV SCH (10:05)
[2017-11-30] MEDS: GUAIFENESIN 600 MG TABLET.SA PO SCH ×2 (10:05→23:52)
[2017-11-30] MEDS: APIXABAN 2.5 MG TABLET PO SCH ×2 (10:05→23:52)
[2017-11-30] MEDS: MULTIVITAMIN TABLET PO SCH (10:05)
[2017-11-30] MEDS: TIOTROPIUM BROMIDE DPI 5 CAP/KIT (18 MCG/CAP) IH SCH (10:05)
[2017-11-30] MEDS: DOCUSATE SODIUM 100 MG CAPSULE PO SCH ×2 (10:05→17:45)
[2017-11-30] MEDS ORDERED: PREDNISONE 20 MG TABLET PO ONE (11:00)
[2017-11-30] MEDS: INSULIN LISPRO 100 UNIT/ML 3 ML VIAL SUBCUT PRN ×2 (12:28→23:44)
[2017-11-30] MEDS ORDERED: HYDROCODONE/ACETAMINOPHEN 10-325 MG TABLET PO PRN (12:42)
[2017-11-30] MEDS ORDERED: AMLODIPINE BESYLATE 2.5 MG TABLET PO SCH (12:50)
--- NOTE | 2017-11-30 12:50 | PDOC PROGRESS REPORT ---
Subjective Progress Note for:: 11/30/17 Subjective:: The patient is a 77-year-old female with a past medical history of atrial fibrillation, hyperlipidemia, hypertension, asthma, COPD, type 2 diabetes mellitus, GERD, dementia, and depression who is a long-term resident of [facility] who was admitted for acute respiratory failure secondary to pneumonia in the setting of COPD. The patient is seen on morning rounds. She is found resting in bed comfortably on supplemental oxygen at 2.5 L/min; the patient is O2 dependent at 2 L/min. She states that she is feeling well today she denies dyspnea, cough. She again asks to be discharged home. She has no new questions or concerns today. Reason For Visit: ACUTE ON CHRONIC HYPOXIC RESPIRATORY FAILURE Physical Exam Vital Signs: Temp Pulse Resp BP Pulse Ox 98.3 F 76 16 151/69 H 97 11/30/17 08:41 11/30/17 08:41 11/30/17 08:41 11/30/17 08:41 11/30/17 08:41 Intake & Output 11/29/17 11/30/17 12/01/17 06:59 06:59 06:59 Intake Total 2260 1820 0 Output Total 775 1000 600 Balance 1485 820 -600 Weight 133.5 kg 133.5 kg General appearance: PRESENT: no acute distress, morbidly obese, well-developed, well-nourished Head exam: PRESENT: atraumatic, normocephalic Eye exam: PRESENT: conjunctiva pink, EOMI, PERRLA. ABSENT: scleral icterus Ear exam: PRESENT: normal external ear exam Mouth exam: PRESENT: moist, tongue midline Teeth exam: PRESENT: poor dentation Neck exam: ABSENT: carotid bruit, JVD, lymphadenopathy, thyromegaly Respiratory exam: PRESENT: symmetrical, unlabored, wheezes - slight expiratory. ABSENT: rales, rhonchi Cardiovascular exam: PRESENT: RRR, +S1, +S2. ABSENT: diastolic murmur, rubs, systolic murmur Pulses: PRESENT: normal dorsalis pedis pul Vascular exam: PRESENT: normal capillary refill GI/Abdominal exam: PRESENT: normal bowel sounds, soft. 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 ABSENT: calf tenderness, clubbing, pedal edema Neurological exam: PRESENT: alert, awake, oriented to person, oriented to place , oriented to time, oriented to situation, CN II-XII grossly intact. ABSENT: motor sensory deficit Psychiatric exam: PRESENT: appropriate affect, normal mood. ABSENT: homicidal ideation, suicidal ideation Skin exam: PRESENT: dry, intact, warm. ABSENT: cyanosis, rash Results Laboratory Results: 11/29/17 06:00 11/29/17 06:00 Impressions: Chest CT 11/23/17 00:00 IMPRESSION: Left lower lobe and lingular pneumonia. Chest X-Ray 11/28/17 00:00 IMPRESSION: No pneumothorax status post central line placement. Airspace opacity at the left lung base, may represent atelectasis or pneumonia. Thyroid Ultrasound 11/28/17 00:00 IMPRESSION: NORMAL THYROID ULTRASOUND. Assessment & Plan - Diagnosis (1) Acute respiratory failure Qualifiers: Respiratory failure complication: hypercapnia Qualified Code(s): J96.02 - Acute respiratory failure with hypercapnia Is this a current diagnosis for this admission?: Yes Plan: Resolved; Secondary to pneumonia in the setting of COPD. Chest CT does demonstrate a left lower lobe and lingular pneumonia. Final Blood cultures have no growth. Sputum cultures: Normal maynor. MRSA screening is positive. Influenza screening is negative. ABG demonstrated compensated respiratory acidosis. Bicarb now normal. The patient has been placed on BiPAP qHS and as needed with supplemental oxygen as needed to maintain O2 sats greater than 88%. Will ask nursing to encourage BiPAP use; 4 hours/day and qHS. We will transition to p.o. Ceftin The patient has completed Tamiflu influenza prophylaxis. We will continue scheduled duo nebs. We will transition to p.o. prednisone Continue Mucinex. Encourage incentive spirometry. (2) Pneumonia Qualifiers: Pneumonia type: due to methicillin-sensitive Staphylococcus aureus (MSSA) Laterality: right Is this a current diagnosis for this admission?: Yes Plan: Plan as above. (3) COPD exacerbation Is this a current diagnosis for this admission?: Yes Plan: Will start the patient on Spiriva for COPD maintenance. Plan as above. (4) Hyperthyroidism Is this a current diagnosis for this admission?: Yes Plan: The patient is noted to have a TSH of less than 0.01 with a free T4 of 3.08 and Free T3 of 2.15. Thyroid ultrasound was normal. Cardiology has been consulted as the patient is chronically on amiodarone; appreciate their evaluation and recommendations. (5) Atrial fibrillation Qualifiers: Atrial fibrillation type: paroxysmal Qualified Code(s): I48.0 - Paroxysmal atrial fibrillation Is this a current diagnosis for this admission?: No Plan: Currently normal sinus rhythm; PAF Cardiology has recommended that amiodarone be continued. Appreciate their evaluation and recommendations. Continue chronic anticoagulation with Eliquis 2.5 every 12 hours. (6) Diabetes mellitus type 2 in obese Is this a current diagnosis for this admission?: Yes Plan: The patient is provided consistent carb diet with Accu-Cheks before meals and at bedtime with Humalog for sliding scale coverage. (7) Dehydration Is this a current diagnosis for this admission?: Yes Plan: Improving; BUN trending down and likely remains elevated secondary to glucocorticoid use. We will discontinue IV fluids. Continue to encourage p.o. fluids. (8) Hypertension Is this a current diagnosis for this admission?: Yes Plan: Persistently elevated hypertension; continue Norvasc. (9) DVT prophylaxis Is this a current diagnosis for this admission?: Yes Plan: Continue the patient's home dose Eliquis. SCDs while in bed. - Time Time Spent with patient: 25-34 minutes Medications reviewed and adjusted accordingly: Yes Anticipated discharge: SNF - pt is resident of [facility] Within: within 24 hours
[2017-11-30] MEDS: NYSTATIN 500000 UNIT/5 ML UDCUP PO SCH ×3 (13:45→23:54)
[2017-11-30] MEDS: MINERAL OIL/PETROLATUM,WHITE CREAM 114 GM TP SCH (13:46)
[2017-11-30] MEDS: PREDNISONE 20 MG TABLET PO SCH (17:45)
[2017-11-30] MEDS ORDERED: AMLODIPINE BESYLATE 5 MG TABLET PO SCH (22:00)
[2017-11-30] MEDS: LORAZEPAM 0.5 MG TABLET PO PRN (23:45)
[2017-11-30] MEDS: CEFUROXIME 250 MG TABLET PO SCH (23:49)
[2017-11-30] MEDS: ATORVASTATIN CALCIUM 20 MG TABLET PO SCH (23:51)
[2017-11-30] MEDS: QUETIAPINE FUMARATE 25 MG TABLET PO SCH (23:51)
[2017-11-30] MEDS: DONEPEZIL HCL 5 MG TABLET PO SCH (23:53)
[2017-11-30] MEDS: SENNOSIDES/DOCUSATE 8.6-50 MG 1 EACH TABLET PO SCH (23:55)
[2017-12-01] MEDS: IPRATROPIUM/ALBUTEROL 0.5-2.5 MG/3 ML AMPUL NEB SCH ×3 (02:29→13:45)
[2017-12-01] MEDS: MAGNESIUM OXIDE 400 MG TABLET PO SCH ×2 (05:26→15:22)
[2017-12-01] MEDS: GABAPENTIN 100 MG CAPSULE PO SCH ×2 (05:26→15:22)
[2017-12-01 09:32] VITALS: BP 144/64
[2017-12-01] MEDS: CEFUROXIME 250 MG TABLET PO SCH (10:08)
[2017-12-01] MEDS: MULTIVITAMIN TABLET PO SCH (10:08)
[2017-12-01] MEDS: PREDNISONE 20 MG TABLET PO SCH (10:08)
[2017-12-01] MEDS: CYANOCOBALAMIN (VITAMIN B-12) 1,000 MCG TABLET PO SCH (10:08)
[2017-12-01] MEDS: FAMOTIDINE 20 MG TABLET PO SCH (10:08)
[2017-12-01] MEDS: DOCUSATE SODIUM 100 MG CAPSULE PO SCH (10:08)
[2017-12-01] MEDS: GUAIFENESIN 600 MG TABLET.SA PO SCH (10:08)
[2017-12-01] MEDS: APIXABAN 2.5 MG TABLET PO SCH (10:08)
[2017-12-01] MEDS: TIOTROPIUM BROMIDE DPI 5 CAP/KIT (18 MCG/CAP) IH SCH (10:09)
[2017-12-01] MEDS: NYSTATIN 500000 UNIT/5 ML UDCUP PO SCH ×2 (10:09→15:22)
--- NOTE | 2017-12-01 11:11 | PDOC PROGRESS REPORT ---
Subjective Progress Note for:: 11/30/17 Subjective:: The patient is seen on morning rounds. She is found resting in bed comfortably on supplemental oxygen via nasal cannula at 3 L/min. patient also noted to be on intermittent bilevel therapy. Pt is denying any chest arm or neck discomfort. Patient denying any PND, orthopnea. Patient denied any sustained palpitations, dizziness, syncope, near syncope. Patient denying any fever chills. Patient denying any other significant discomfort. Patient is maintaining sinus rhythm. Review of systems: Rest review of systems negative. Medications: Medications have been reviewed. Reason For Visit: ACUTE ON CHRONIC HYPOXIC RESPIRATORY FAILURE Physical Exam Vital Signs: Temp Pulse Resp BP Pulse Ox 97.7 F 79 17 153/65 H 96 11/30/17 12:14 11/30/17 12:14 11/30/17 12:14 11/30/17 12:14 11/30/17 12:14 Intake & Output 11/29/17 11/30/17 12/01/17 06:59 06:59 06:59 Intake Total 2260 1820 0 Output Total 775 1000 600 Balance 1485 820 -600 Weight 133.5 kg 133.5 kg Exam: GENERAL: well-nourished and in no acute distress. Alert and oriented x3 HEAD: Atraumatic, normocephalic. EYES: Pupils equal round and reactive to light, extraocular movements intact, sclera anicteric, conjunctiva are normal. ENT: TMs normal, nares patent, oropharynx clear without exudates. Moist mucous membranes. No oral ulcerations or bleeding gums noted NECK: supple without lymphadenopathy. Trachea is central. No cervical or axillary lymphadenopathy noted. Carotids are 2+, JVD WNL LUNGS: Respiration seems nonlabored, no significant accessory muscle action noted. Breath sounds clear to auscultation bilaterally and equal noted. No wheezes rales or rhonchi noted. No significant dullness noted on percussion. CHEST: Palpation of the chest wall shows no significant chest wall tenderness. No other significant abnormalities noted. HEART: [place] [employer], No PSH, 1/6 MICKEY aortic area, 1/6 son systolic murmur mitral area, no rubs, no gallops. ABDOMEN: Soft, no significant tenderness appreciated, normoactive bowel sounds. No guarding, no rebound. No rigidity noted . No masses appreciated. EXTREMITIES: Pedal pulses are 1-2+, no calf tenderness noted. No clubbing or cyanosis.1+ pedal edema noted NEUROLOGICAL: Findings of dense left hemiparesis.. PSYCH: Normal mood, normal affect. Judgment and insight within normal limits. SKIN: No significant ecchymosis, rash, ulcerations or signs of pruritus noted. MUSCULOSKELETAL EXAM: No significant joint swelling noted. Results Laboratory Results: 11/29/17 06:00 11/29/17 06:00 Impressions: Chest CT 11/23/17 00:00 IMPRESSION: Left lower lobe and lingular pneumonia. Chest X-Ray 11/28/17 00:00 IMPRESSION: No pneumothorax status post central line placement. Airspace opacity at the left lung base, may represent atelectasis or pneumonia. Thyroid Ultrasound 11/28/17 00:00 IMPRESSION: NORMAL THYROID ULTRASOUND. Assessment & Plan - Diagnosis (1) Acute respiratory failure Qualifiers: Respiratory failure complication: hypercapnia Qualified Code(s): J96.02 - Acute respiratory failure with hypercapnia Is this a current diagnosis for this admission?: Yes (2) Diabetes mellitus type 2 in obese Is this a current diagnosis for this admission?: Yes (3) Hyperthyroidism Is this a current diagnosis for this admission?: Yes (4) Atrial fibrillation Qualifiers: Atrial fibrillation type: paroxysmal Qualified Code(s): I48.0 - Paroxysmal atrial fibrillation Is this a current diagnosis for this admission?: No (5) COPD exacerbation Is this a current diagnosis for this admission?: Yes (6) Amiodarone toxicity Qualifiers: Encounter type: initial encounter Is this a current diagnosis for this admission?: Yes - Notes Notes: Acute respiratory failure: Breathing has improved. Diabetes: Currently reasonably well controlled. Will leave management plans to hospitalist. Hyperthyroidism: Ultrasound report of the thyroid gland reviewed. Consider repeating thyroid functions, other thyroid testing especially uptake. Atrial fibrillation: Patient is maintaining sinus rhythm. Currently off amiodarone. COPD: Currently stable. Continue current management plans. Amiodarone toxicity: Suspect thyroid problem could be related to amiodarone. It may be worthwhile to consider a thyroid uptake scan. - Time Time with patient: 15-25 minutes - CODE STATUS : was discussed, patient remains DO NOT RESUSCITATE. Surrogate decision-maker unchanged. Multiple medical problems were addressed. More than 50% of the time spent coordinating care, discussing management plans with involved caregivers. Management plans discussed with involved personnels. Medical decision making was of moderate to high complexity, patient's has multiple comorbidities. Medications reviewed and adjusted accordingly: Yes
--- NOTE | 2017-12-01 11:20 | PDOC PROGRESS REPORT ---
Subjective Progress Note for:: 12/01/17 Subjective:: The patient is seen on morning rounds. Patient noted to be mildly short of breath. Currently on supplemental oxygen via nasal cannula at 3 L/min. patient also noted to be on intermittent bilevel therapy. Pt is denying any chest arm or neck discomfort. Patient today complains of shortness of breath. Patient denying any PND, orthopnea. Patient denied any sustained palpitations, dizziness, syncope, near syncope. Patient denying any fever chills. Patient denying any other significant discomfort. Patient is maintaining sinus rhythm. Review of systems: Rest review of systems negative. Medications: Medications have been reviewed. Reason For Visit: ACUTE ON CHRONIC HYPOXIC RESPIRATORY FAILURE Physical Exam Vital Signs: Temp Pulse Resp BP Pulse Ox 97.6 F 82 16 144/64 H 95 12/01/17 08:00 12/01/17 08:14 12/01/17 08:14 12/01/17 08:00 12/01/17 08:14 Intake & Output 11/30/17 12/01/17 12/02/17 06:59 06:59 06:59 Intake Total 1820 2190 Output Total 1000 1550 Balance 820 640 Weight 133.5 kg Exam: GENERAL: well-nourished and in no acute distress. Alert and oriented x3 HEAD: Atraumatic, normocephalic. EYES: Pupils equal round and reactive to light, extraocular movements intact, sclera anicteric, conjunctiva are normal. ENT: TMs normal, nares patent, oropharynx clear without exudates. Moist mucous membranes. No oral ulcerations or bleeding gums noted NECK: supple without lymphadenopathy. Trachea is central. No cervical or axillary lymphadenopathy noted. Carotids are 2+, JVD WNL LUNGS: Respiration seems nonlabored, no significant accessory muscle action noted. Mild bilateral wheezes rales or rhonchi noted. No significant dullness noted on percussion. CHEST: Palpation of the chest wall shows no significant chest wall tenderness. No other significant abnormalities noted. HEART: Howard LIVESTOCK HANDLER, No PSH, 1/6 MICKEY aortic area, 1/6 son systolic murmur mitral area, no rubs, no gallops. ABDOMEN: Soft, no significant tenderness appreciated, normoactive bowel sounds. No guarding, no rebound. No rigidity noted . No masses appreciated. EXTREMITIES: Pedal pulses are 1-2+, no calf tenderness noted. No clubbing or cyanosis.1+ pedal edema noted NEUROLOGICAL: Findings of dense left hemiparesis.. PSYCH: Normal mood, normal affect. Judgment and insight within normal limits. SKIN: No significant ecchymosis, rash, ulcerations or signs of pruritus noted. MUSCULOSKELETAL EXAM: No significant joint swelling noted. Results Laboratory Results: 11/29/17 06:00 11/29/17 06:00 EKG Comments: Telemetry strips shows sinus rhythm without any sustained tacky or bradycardia arrhythmias. Impressions: Chest CT 11/23/17 00:00 IMPRESSION: Left lower lobe and lingular pneumonia. Chest X-Ray 11/28/17 00:00 IMPRESSION: No pneumothorax status post central line placement. Airspace opacity at the left lung base, may represent atelectasis or pneumonia. Thyroid Ultrasound 11/28/17 00:00 IMPRESSION: NORMAL THYROID ULTRASOUND. Assessment & Plan - Diagnosis (1) Acute respiratory failure Qualifiers: Respiratory failure complication: hypercapnia Qualified Code(s): J96.02 - Acute respiratory failure with hypercapnia Is this a current diagnosis for this admission?: Yes (2) Diabetes mellitus type 2 in obese Is this a current diagnosis for this admission?: Yes (3) Hyperthyroidism Is this a current diagnosis for this admission?: Yes (4) Atrial fibrillation Qualifiers: Atrial fibrillation type: paroxysmal Qualified Code(s): I48.0 - Paroxysmal atrial fibrillation Is this a current diagnosis for this admission?: No (5) COPD exacerbation Is this a current diagnosis for this admission?: Yes (6) Amiodarone toxicity Qualifiers: Encounter type: initial encounter Is this a current diagnosis for this admission?: Yes - Notes Notes: Acute respiratory failure: Today patient noted to have mild wheezing and shortness of breath. Continue therapy with prednisone, bronchodilator therapy.. Diabetes: Currently reasonably well controlled. Will leave management plans to hospitalist. Hyperthyroidism: Ultrasound report of the thyroid gland reviewed. Consider repeating thyroid functions, other thyroid testing especially uptake. Will order repeat thyroid function test. Atrial fibrillation: Patient is maintaining sinus rhythm. Currently off amiodarone. No need to resume amiodarone. Should patient go back into atrial fibrillation, will consider either Multaq or sotalol therapy. COPD: Currently stable. Continue current management plans. Amiodarone toxicity: Suspect thyroid problem could be related to amiodarone. It may be worthwhile to consider a thyroid uptake scan. Will repeat thyroid function tests - Time Time with patient: 15-25 minutes - CODE STATUS : was discussed, patient remains DO NOT RESUSCITATE. Surrogate decision-maker unchanged. Multiple medical problems were addressed. More than 50% of the time spent coordinating care, discussing management plans with involved caregivers. Management plans discussed with involved personnels. Medical decision making was of moderate to high complexity, patient's has multiple comorbidities. Medications reviewed and adjusted accordingly: Yes
--- NOTE | 2017-12-01 14:09 | PDOC TRANSFER SUMMARY ---
General - Admit/Disc Date/PCP Admission Date/Primary Care Provider: 11/23/17 07:40 SAMMI VAZQUEZ MD Discharge Date: 12/01/17 - Discharge Diagnosis (1) Acute respiratory failure Is this a current diagnosis for this admission?: Yes Summary: Resolved. Secondary to PNA in the setting of COPD. Chest CT does demonstrate a LLL and lingular PNA Final blood cultures have no growth sputum cultures normal maynor MRSA screening (nares) positive influenza screening is negative. ABG demonstrated compensated respiratory acidosis. BIcarb is now normal. Pt no longer requires PNA QHS, she is able to maintain SpO2>88% on 2LNC Pt transitioned to PO Ceftin yesterday, will continue for 5 days after discharge Completed Tamiflu prophylaxis Completed course of steroids. Does not need to continue upon discharge (2) Pneumonia Is this a current diagnosis for this admission?: Yes Summary: Will continue to treat with Ceftin for 5 days after discharge. (3) COPD exacerbation Is this a current diagnosis for this admission?: Yes Summary: Patient started on Spiriva for COPD management. Will continue after discharge. (4) Atrial fibrillation Is this a current diagnosis for this admission?: No Summary: Currently in NSR. Paroxysmal Atrial fibrillation. Cardiology has recommended that amiodarone be continued. Continue chronic anticoagulation with Eliquis 2.5 every 12 hours (5) Hyperthyroidism Is this a current diagnosis for this admission?: Yes Summary: Patient noted to have TSH less than 0.01 with a free T4 of 3.08 and Free T3 of 2.15. Thyroid US normal. Believed to be induced by amiodarone, cardiology recommends continuing on the medication. - Additional Information Resuscitation Status: Do Not Resuscitate Discharge Diet: As Tolerated Discharge Activity: Activity As Tolerated Prescriptions: Cefuroxime Axetil [Ceftin 250 mg Tablet] 250 mg PO Q12 5 Days #10 tablet Hydrocodone/Acetaminophen [Shannock 10-325 mg Tablet] 1 tab PO Q4HP PRN #3 tablet PRN Reason: For Pain Lorazepam [Ativan 0.5 mg Tablet] 0.5 mg PO Q6HP PRN #3 tablet PRN Reason: Anxiety Tiotropium Mesa [Spiriva Handihaler 5 Cap/Kit (18 Mcg/Cap)] 1 cap IH DAILY 30 Days #1 kit Home Medications: Acetaminophen [Tylenol Extra Strength] 1,000 mg PO Q8HP PRN 11/23/17 Amiodarone HCl [Cordarone 200 mg Tablet] 200 mg PO DAILY 11/23/17 Apixaban [Eliquis 2.5 mg Tablet] 2.5 mg PO Q12 11/23/17 Atorvastatin Calcium [Lipitor 20 mg Tablet] 20 mg PO QHS 11/23/17 Cyanocobalamin (Vitamin B-12) [Vitamin B12] 1,000 mcg PO DAILY 11/23/17 Docusate Sodium [Colace 100 mg Capsule] 100 mg PO BID 11/23/17 Donepezil HCl [Aricept 5 mg Tablet] 10 mg PO QHS 11/23/17 Gabapentin [Neurontin 100 mg Capsule] 100 mg PO Q8 11/23/17 Ipratropium/Albuterol Sulfate [Duoneb 3 ml Ampul] 3 ml NEB RTQ6HP PRN 11/23/17 Magnesium Oxide [Mag-Ox 400 mg Tablet] 400 mg PO Q8 11/23/17 Olopatadine HCl [Pataday] 2.5 ml OU DAILY 11/23/17 Ondansetron HCl [Zofran 4 mg Tablet] 1 tab PO Q8HP PRN 11/23/17 Pantoprazole Sodium [Protonix] 40 mg PO DAILY 11/23/17 Quetiapine Fumarate [Seroquel 25 mg Tablet] 25 mg PO QHS 11/23/17 Sennosides [Senna] 8.6 mg PO QHS 11/23/17 Amlodipine Besylate [Norvasc 5 mg Tablet] 5 mg PO QHS tablet 12/01/17 Cefuroxime Axetil [Ceftin 250 mg Tablet] 250 mg PO Q12 5 Days #10 tablet Hydrocodone/Acetaminophen [Shannock 10-325 mg Tablet] 1 tab PO Q4HP PRN #3 tablet 12/01/17 Lorazepam [Ativan 0.5 mg Tablet] 0.5 mg PO Q6HP PRN #3 tablet 12/01/17 Multivitamin [Tab-A-Louis (Multiple Vitamin) Tablet] 1 tab PO DAILY tablet 12/01 Nystatin [Mycostatin 500,000 Unit/5 ml Susp Udcup] 500,000 unit PO QID udc 04/12 Tiotropium Mesa [Spiriva Handihaler 5 Cap/Kit (18 Mcg/Cap)] 1 cap IH DAILY 30 Days #1 kit 12/01/17 History of Present Illness Admission Date/PCP: 11/23/17 07:40 SAMMI VAZQUEZ MD Patient complains of: Respiratory failure History of Present Illness: PAN BUTLER is a 77 year old female Hospital Course Hospital Course: Patient is a 77 year old female with a past medical history pf atrial fibrillation, hyperlipidemia, HTN, asthma, COPD, type 2 DM, GERD, dementia, and depression who is a residential resident of [facility] who was admitted for acute respiratory failure secondary to PNA in the setting of COPD. She was initially treated with steroids, antibiotics, and BIPAP. During her hospital stay she has made steady progress back to her baseline and is no longer requiring BIPAP or steroids. She can continue her course of oral antibiotics once discharged back to [facility]. Patient comes from a facility where multiple residents were influenza positive, so she was prophylactically treated with a course of Tamiflu. Physical Exam Vital Signs: Temp Pulse Resp BP Pulse Ox 97.6 F 82 16 144/64 H 95 12/01/17 08:00 12/01/17 08:14 12/01/17 08:14 12/01/17 08:00 12/01/17 08:14 Intake & Output 11/30/17 12/01/17 12/02/17 06:59 06:59 06:59 Intake Total 1820 2190 Output Total 1000 1550 Balance 820 640 Weight 133.5 kg General appearance: PRESENT: no acute distress Head exam: PRESENT: normocephalic Eye exam: PRESENT: conjunctiva pink, PERRLA Ear exam: PRESENT: normal external ear exam Mouth exam: PRESENT: moist Teeth exam: PRESENT: poor dentation Respiratory exam: PRESENT: clear to auscultation woo Cardiovascular exam: PRESENT: +S1, +S2 Pulses: PRESENT: normal radial pulses, normal dorsalis pedis pul GI/Abdominal exam: PRESENT: soft Rectal exam: PRESENT: deferred Gentrourinary exam: PRESENT: other - incontinent of urine Extremities exam: PRESENT: +1 edema, other - anasarca Musculoskeletal exam: PRESENT: other - bedbound Neurological exam: PRESENT: awake, oriented to person Skin exam: PRESENT: other - bruising to R hand Results Laboratory Results: 11/29/17 06:00 11/29/17 06:00 12/01/17 11:35 TSH < 0.01 L Impressions: Chest CT 11/23/17 00:00 IMPRESSION: Left lower lobe and lingular pneumonia. Chest X-Ray 11/28/17 00:00 IMPRESSION: No pneumothorax status post central line placement. Airspace opacity at the left lung base, may represent atelectasis or pneumonia. Thyroid Ultrasound 11/28/17 00:00 IMPRESSION: NORMAL THYROID ULTRASOUND. Status: Imported from PACS Transfer Plan - Disposition Transfer Plan: Discharge to SNF - Time Spent with Patient Time spent with patient: Greater than 30 Minutes Qualifiers PATEINT BEING DISCHARGED WITH ANY OF THE FOLLOWING DIAGNOSIS?: No Plan Discharge Plan: Return to SNF on Ceftin for pneumonia. Spiriva for COPD. Continue amiodarone and Eloquis for paroxysmal atrial fibrillation Time Spent: Greater than 30 Minutes
[2017-12-01] MEDS: MINERAL OIL/PETROLATUM,WHITE CREAM 114 GM TP SCH (15:22)
== END 2017-12-01 18:30 | DRG 177 ==
LOC: ER 05:06 → EH 07:40 → 3W 13:05
PROVIDERS: ADMIT Emergency Medicine; ATTEND Emergency Medicine
PROC: 02HV33Z Insertion of Infusion Device into Superior Vena Cava, Percutaneous Approach (ICD-10-PCS; principal; 2017-11-27)
PROC: B548ZZA Ultrasonography of Superior Vena Cava, Guidance (ICD-10-PCS; 2017-11-27)
DX: J15.211 Pneumonia due to Methicillin susceptible Staphylococcus aureus (principal); J96.22 Acute and chronic respiratory failure with hypercapnia; J96.21 Acute and chronic respiratory failure with hypoxia; J44.1 Chronic obstructive pulmonary disease with (acute) exacerbation; E66.2 Morbid (severe) obesity with alveolar hypoventilation; Z68.43 Body mass index [BMI] 50.0-59.9, adult; I69.354 Hemiplegia and hemiparesis following cerebral infarction affecting left non-dominant side; I48.0 Paroxysmal atrial fibrillation; E78.00 Pure hypercholesterolemia, unspecified; Z66 Do not resuscitate; I10 Essential (primary) hypertension; J45.998 Other asthma; K21.9 Gastro-esophageal reflux disease without esophagitis; E86.0 Dehydration; I87.8 Other specified disorders of veins; E05.90 Thyrotoxicosis, unspecified without thyrotoxic crisis or storm; F03.90 Unspecified dementia, unspecified severity, without behavioral disturbance, psychotic disturbance, mood disturbance, and anxiety; F41.8 Other specified anxiety disorders; E11.9 Type 2 diabetes mellitus without complications; E66.9 Obesity, unspecified; T88.7XXA Unspecified adverse effect of drug or medicament, initial encounter; T46.2X5A Adverse effect of other antidysrhythmic drugs, initial encounter; Y92.9 Unspecified place or not applicable; Z22.322 Carrier or suspected carrier of Methicillin resistant Staphylococcus aureus; Z99.81 Dependence on supplemental oxygen; Z79.01 Long term (current) use of anticoagulants; Z79.51 Long term (current) use of inhaled steroids; Z79.899 Other long term (current) drug therapy
CPT/HCPCS: 36415; 36600; 71045; 71250; 76536; 80048; 80053; 81001; 82550; 82553; 82803; 82962; 83735; 83880; 84439; 84443; 84481; 84484; 85025; 85027; 87040; 87070; 87086; 87205; 87493; 87804; 93005; 93010; 93306; 94640; 94660; 94799; 96365; 96375; 99291; J0692; J1815; J2920; J2930; J3370; J3490; J7030; J7512; J7620

== ENCOUNTER → 2017-12-25 | Outpatient (CLI) | payer MEDICARE, MEDICAID ==
[2017-12-25 10:56] LABS: ARTERIAL BLOOD BASE EXCESS 5.4 mmol/L; ARTERIAL BLOOD H2CO3 1.59 mmol/L (1.05-1.35); ARTERIAL BLOOD HCO3 31.5 mmol/L (20-26); ARTERIAL BLOOD PCO2 52.8 mmHg (35-45); ARTERIAL BLOOD PH 7.39 (7.35-7.45); ARTERIAL BLOOD PO2 48.1 mmHg (80-100); ARTERIAL BLOOD TOTAL CO2 33.2 mmol/L (21-25)
[2017-12-25 10:57] LABS: ARTERIAL BLOOD FIO2 2 L
== END ==
LOC: RT 10:15
PROVIDERS: ATTEND Family Medicine Geriatric Medicine
DX: J44.9 Chronic obstructive pulmonary disease, unspecified (principal)
CPT/HCPCS: 36600; 82803

== ENCOUNTER → 2018-02-10 | Outpatient (CLI) | payer MEDICARE, MEDICAID ==
[~2018-02-10] MED LIST: ALBUTEROL SULFATE 0.083% NEB 2.5 MG/3 ML AMPUL NEB ONE
--- NOTE | 2018-02-10 17:32 | Pulmonary Function Test ---
Pulmonary Function Test Date of Procedure:: 02/10/18 - Document received for garment mender 02/10/18 INDICATION:: COPD Referring Provider: Dr. Ronald Rodriguez Fruit Or Nut Picker: Alisha Bae HEART SPECIALIST - Report Spirometry: FVC 0.93 L 35% postbronchodilator 1.27 L 48% FEV1 0.63 L 32% postbronchodilator 0.70 L 35% FEV1/FVC % 68 postbronchodilator 55 FEF 25-75% 0.35 21% postbronchodilator 0.30 18% Lung Volume: Total lung capacity 3.71 L 78% Vital capacity 1.17 L 44% Inspiratory capacity 0.81 L FRC N 2 2.90 159% RV 2.64 1 28% RV/TLC % 68 predicted 42 Diffusion Capactity: DLCO 27.6 106% DLCO/VA 7.76 223% Impression: Study demonstrates severe obstructive ventilatory defect modest response to bronchodilator therapy. Mild restrictive ventilatory defect moderate air trapping no hyperinflation. Normal diffusion capacity.
== END ==
LOC: RT 12:42
PROVIDERS: ATTEND Family Medicine Geriatric Medicine
DX: J44.9 Chronic obstructive pulmonary disease, unspecified (principal)
CPT/HCPCS: 94729; 94727; 94060; A9270

== ENCOUNTER 2018-10-31 04:35 | Inpatient (IN) | payer MEDICARE, MEDICAID ==
[2018-10-31] MEDS ORDERED: ALBUTEROL SULFATE 0.083% NEB 2.5 MG/3 ML AMPUL NEB ONE (04:40)
[2018-10-31] MEDS ORDERED: IPRATROPIUM/ALBUTEROL 0.5-2.5 MG/3 ML AMPUL NEB ONE (04:40)
[2018-10-31] MEDS ORDERED: METHYLPREDNISOLONE INJ 125 MG/2 ML SDV IV ONE (04:41)
--- NOTE | 2018-10-31 04:45 | ER Document Report ---
ED Respiratory Problem - General TRAVEL OUTSIDE OF THE [place] IN LAST 30 DAYS: No <THANIA MOSLEY A - Last Filed: 10/31/18 05:55> <MOSLEYFE MelloDave Latif - Last Filed: 10/31/18 20:08> - General Stated Complaint: SHORTNESS OF BREATH Time Seen by Provider: 10/31/18 04:40 - HPI Notes: Patient is a 78-year-old female that presents to the emergency department for chief complaint of shortness of breath patient was reportedly fine when she went to bed last night and then woke up about an hour ago short of breath. EMS reports she was on her 4 L nasal cannula and was 60% FiO2. EMS gave her 1 DuoNeb and [facility] gave her one albuterol. Patient is complaining of shortness of breath and pain in her left breast. She is working hard to breathe and this is limiting HPI. She denies any recent fevers or chills. She denies feeling nauseated. She does state that she would want to be intubated if that was required to save her life. Past Medical History: Stroke, COPD Past Surgical History: Reviewed in chart Social History: Reviewed in chart Family History: Reviewed and noncontributory for presenting illness Allergies: Reviewed, see documented allergy list. REVIEW OF SYSTEMS: CONSTITUTIONAL : No fever No chills No diaphoresis No recent illness EENT: No vision changes No congestion No sore throat CARDIOVASCULAR: chest pain No palpitations RESPIRATORY: shortness of breath No cough No difficulty breathing GASTROINTESTINAL: No abdominal pain No nausea No vomiting No diarrhea GENITOURINARY: No dysuria No hematuria No difficulty urinating MUSCULOSKELETAL: No back pain No leg pain No arm pain SKIN: No rashes No lesions LYMPHATIC: No swollen, enlarged glands. NEUROLOGICAL: No lightheadedness No headache No weakness No paresthesias PSYCHIATRIC: No anxiety No depression PHYSICAL EXAMINATION: Vital signs reviewed, nursing noted reviewed. GENERAL: Well-appearing, obese and in no acute distress. HEAD: Atraumatic, normocephalic. EYES: Eyes appear normal, extraocular movements intact, sclera anicteric, conjunctiva are normal. ENT: nares patent, oropharynx clear without exudates. Dry mucous membranes. NECK: Normal range of motion, supple without lymphadenopathy Lungs: Tachypneic, moderate accessory muscle use, diffuse wheezing and diminished lung sounds HEART: Regular rate and rhythm without murmurs ABDOMEN: Soft, nontender, normoactive bowel sounds. No rebound, guarding, or rigidity. No masses appreciated. EXTREMITIES: Nontender, good range of motion, +2 pitting edema bilaterally NEUROLOGICAL: Paralysis and decreased sensation of left upper and lower extremity. Normal right upper and lower extremity. PSYCH: Normal mood, normal affect. SKIN: Warm, Dry, normal turgor (THANIA MOSLEY) - Related Data Allergies/Adverse Reactions: Penicillins Allergy (Verified 10/31/18 05:30) Past Medical History - Social History Family History: Hypertension - Past Medical History Cardiac Medical History: Reports: Hx Atrial Fibrillation - paroxysmal reportedly, Hx Hypercholesterolemia, Hx Hypertension Pulmonary Medical History: Reports: Hx Asthma, Hx COPD Neurological Medical History: Reports: Hx Cerebrovascular Accident - Left-sided weakness Endocrine Medical History: Reports: Hx Diabetes Mellitus Type 2 Renal/ Medical History: Denies: Hx Peritoneal Dialysis GI Medical History: Reports: Hx Gastroesophageal Reflux Disease Musculoskeletal Medical History: Reports Hx Musculoskeletal Trauma Psychiatric Medical History: Reports: Hx Anxiety, Hx Dementia, Hx Depression, Hx Schizophrenia Traumatic Medical History: Reports: Hx Fractures Past Surgical History: Reports: Hx Appendectomy, Hx Cholecystectomy, Hx Kavya tourinary Surgery - Bladder mesh, Hx Gynecologic Surgery - vaginal prolapse, Hx Tonsillectomy - Immunizations Hx Diphtheria, Pertussis, Tetanus Vaccination: Yes Hx Pneumococcal Vaccination: 10/26/13 <THANIA MOSLEY - Last Filed: 10/31/18 05:55> - Social History Smoking Status: Former Smoker <SELIN MOSLEY - Last Filed: 10/31/18 20:08> - Vital signs Vitals: Pulse 77 10/31/18 04:35 Course - Laboratory Result Diagrams: 10/31/18 05:00 10/31/18 05:00 <THANIA MOSLEY - Last Filed: 10/31/18 05:55> - Laboratory Result Diagrams: 10/31/18 05:00 10/31/18 05:00 <SELIN MOSLEY - Last Filed: 10/31/18 20:08> - Re-evaluation Re-evalutation: 10/31/18 04:44 Vitals reviewed. Nursing notes reviewed. Patient arrived on nonrebreather with DuoNeb going and was oxygenating at 95%. She is mentating. Patient has increased work of breathing and will be started on BiPAP for her COPD exacerbation. She was given more DuoNeb and albuterol. Patient also given Solu-Medrol. Patient wishes to be full code. 10/31/18 05:28 Patient reevaluated and is having improvement of her respiratory status on BiPAP. She is tolerating the mask well and her respirations are less labored. 10/31/18 05:52 Patient's ABG shows hypercapnic respiratory failure with acidosis. She will remain on BiPAP and is clinically improving. FiO2 will be titrated down. Patient's chest x-ray shows a questionable pneumonia however she has no leukocytosis or complaints of fever or cough. She was given a dose of Levaquin for her COPD exacerbation which will also cover underlying pneumonia. She is not septic. The remainder of her workup is unremarkable. She will be admitted to the hospital for further care. Case discussed with Dr. Vasquez. Laboratory 10/31/18 10/31/18 10/31/18 05:00 05:00 05:00 WBC 9.3 RBC 4.73 Hgb 15.1 Hct 46.4 MCV 98 H MCH 31.9 MCHC 32.5 RDW 13.5 Plt Count 155 Seg Neutrophils % 84.7 H Lymphocytes % 10.1 L Monocytes % 5.0 Eosinophils % 0.0 Basophils % 0.2 Absolute Neutrophils 7.9 Absolute Lymphocytes 0.9 Absolute Monocytes 0.5 Absolute Eosinophils 0.0 Absolute Basophils 0.0 Carbonic Acid 2.52 H HCO3/H2CO3 Ratio 16:1 ABG pH 7.31 L ABG pCO2 83.7 H* ABG pO2 105.6 H ABG HCO3 40.8 H ABG Total CO2 43.4 H ABG O2 Saturation 97.1 ABG Base Excess 10.4 FiO2 100% Sodium 140.8 Potassium 4.1 Chloride 97 L Carbon Dioxide 39 H Anion Gap 5 BUN 15 Creatinine 0.41 L Est GFR ( Amer) > 60 Est GFR (Non-Af Amer) > 60 Glucose 186 H Calcium 9.5 Chest X-Ray 10/31/18 04:40 IMPRESSION: 1. Small left lower lobar pneumonia, atelectasis, or scar less compared with prior appearance from an exam dated November 2017. 2. Mild central edema pattern. (THANIA MOSLEY) - Vital Signs Vital signs: Temp Pulse Resp BP Pulse Ox 98.5 F 75 20 153/64 H 97 10/31/18 15:55 10/31/18 15:55 10/31/18 16:13 10/31/18 15:55 10/31/18 16:13 - Laboratory Laboratory results interpreted by me: 10/31/18 10/31/18 10/31/18 05:00 05:00 05:00 MCV 98 H Seg Neutrophils % 84.7 H Lymphocytes % 10.1 L Carbonic Acid 2.52 H ABG pH 7.31 L ABG pCO2 83.7 H* ABG pO2 105.6 H ABG HCO3 40.8 H ABG Total CO2 43.4 H Chloride 97 L Carbon Dioxide 39 H Creatinine 0.41 L Glucose 186 H - EKG Interpretation by Me Additional EKG results interpreted by me: 10/31/18 04:50 Interpreted by myself [id number]: Normal sinus rhythm, rate 76, normal axis, right bundle branch block, left anterior fascicular block, no ST elevation (THANIA MOSLEY) Critical Care Note - Critical Care Note Total time excluding time spent on procedures (mins): 35 <THANIA MOSLEY - Last Filed: 10/31/18 05:55> - Critical Care Note Comments: Acute respiratory failure requiring noninvasive ventilation, interpretation of blood gas, frequent reevaluation, potential for further respiratory decompensation. (THANIA MOSLEY) Discharge <THANIA MOSLEY - Last Filed: 10/31/18 05:55> - Discharge Admitting Provider: Hospitalist - Dr. Vasquez Unit Admitted: Telemetry <SELIN MOSLEY - Last Filed: 10/31/18 20:08> - Discharge Clinical Impression: Hypercapnic respiratory failure, COPD exacerbation Condition: Fair Disposition: ADMITTED INPATIENT
[2018-10-31 05:17] LABS: ABSOLUTE LYMPHOCYTES (AUTO) 0.9 10^3/uL (0.5-4.7); ABSOLUTE MONOCYTES (AUTO) 0.5 10^3/uL (0.1-1.4); ABSOLUTE NEUT (AUTO) 7.9 10^3/uL (1.7-8.2); BASOPHILS % (AUTO) 0.2 % (0-2); HEMATOCRIT 46.4 % (36.0-47.0); HEMOGLOBIN 15.1 g/dL (12.0-15.5); LYMPHOCYTES % (AUTO) 10.1 % (13-45); MEAN CORPUSCULAR HEMOGLOBIN 31.9 pg (27.0-33.4); MEAN CORPUSCULAR HGB CONC 32.5 g/dL (32.0-36.0); MEAN CORPUSCULAR VOLUME 98 fl (80-97); PLATELET COUNT 155 10^3/uL (150-450); RED BLOOD COUNT 4.73 10^6/uL (3.72-5.28); RED CELL DISTRIBUTION WIDTH 13.5 % (11.5-14.0); SEGMENTED NEUTROPHILS % (AUTO) 84.7 % (42-78); TOTAL CELLS COUNTED % (AUTO) 100 %; WHITE BLOOD COUNT 9.3 10^3/uL (4.0-10.5)
[2018-10-31 05:22] LABS: ARTERIAL BLOOD BASE EXCESS 10.4 mmol/L; ARTERIAL BLOOD H2CO3 2.52 mmol/L (1.05-1.35); ARTERIAL BLOOD HCO3 40.8 mmol/L (20-24); ARTERIAL BLOOD O2 SATURATION 97.1 % (94-98); ARTERIAL BLOOD PH 7.31 (7.35-7.45); ARTERIAL BLOOD PO2 105.6 mmHg (80-100); ARTERIAL BLOOD TOTAL CO2 43.4 mmol/L (21-25)
[2018-10-31 05:23] LABS: ARTERIAL BLOOD FIO2 100%
--- NOTE | 2018-10-31 05:34 | RADIOLOGY REPORT (SQ) ---
EXAM DESCRIPTION: XR CHEST 1 VIEW COMPLETED DATE/TME: 10/31/2018 04:40 CLINICAL HISTORY: 78 years Female, chest pain COMPARISON:11/28/2017 NUMBER OF VIEWS/TECHNIQUE: 1/AP FINDINGS: Adequate lung volume, moderate streaky opacity of the left lower retrocardiac and left basilar lung, mild central edema pattern, normal cardiac silhouette, atherosclerosis, and intact bony thorax. IMPRESSION: 1. Small left lower lobar pneumonia, atelectasis, or scar less compared with prior appearance from an exam dated November 2017. 2. Mild central edema pattern.
[2018-10-31 05:46] LABS: ARTERIAL BLOOD PCO2 83.7 mmHg (35-45)
[2018-10-31 05:47] LABS: ANION GAP 5 (5-19); BLOOD UREA NITROGEN 15 mg/dL (7-20); CALCIUM 9.5 mg/dL (8.4-10.2); CARBON DIOXIDE 39 mmol/L (22-30); CHLORIDE 97 mmol/L (98-107); GLUCOSE 186 mg/dL (75-110); POTASSIUM 4.1 mmol/L (3.6-5.0); SODIUM 140.8 mmol/L (137-145)
[2018-10-31] MEDS: LEVOFLOXACIN 750 MG/D5W RTU 750 MG/150 ML RTUPB IV SCH ×2 (06:04→13:23)
--- NOTE | 2018-10-31 07:02 | PDOC H&P ---
History of Present Illness Admission Date/PCP: SAMMI VAZQUEZ MD Patient complains of: Shortness of breath History of Present Illness: PAN BUTLER is a 78 year old female with a past medical history of morbid obesity, oxygen dependent COPD, type 2 diabetes, GERD, atrial fibrillation, dyslipidemia and hypertension. Patient presents the emergency room via EMS and found to have hypoxia and chest pain. Chest x-ray is unremarkable. She is started on Solu-Medrol, albuterol and Atrovent and BiPAP and then referred to the hospitalist for admission. She admits to uncontrolled GERD, rhinorrhea and daytime sleepiness. Past Medical History Cardiac Medical History: Reports: Atrial Fibrillation - paroxysmal reportedly, Hyperlipidema, Hypertension Pulmonary Medical History: Reports: Asthma, Chronic Obstructive Pulmonary Disease (COPD) Endocrine Medical History: Reports: Diabetes Mellitus Type 2 GI Medical History: Reports: Gastroesophageal Reflux Disease Psychiatric Medical History: Reports: Dementia, Depression Past Surgical History Past Surgical History: Reports: Appendectomy, Cholecystectomy, Tonsillectomy Social History Information Source: Patient, [facility] Records Smoking Status: Unknown if Ever Smoked Frequency of Alcohol Use: None Hx Recreational Drug Use: No Drugs: None Hx Prescription Drug Abuse: No - Advance Directive Resuscitation Status: Full Code Family History Family History: Hypertension Parental Family History Reviewed: Yes Children Family History Reviewed: Yes Sibling(s) Family History Reviewed.: Yes Medication/Allergy Home Medications: Acetaminophen [Tylenol Extra Strength] 1,000 mg PO Q8HP PRN 11/23/17 Amiodarone HCl [Cordarone 200 mg Tablet] 200 mg PO DAILY 11/23/17 Apixaban [Eliquis 2.5 mg Tablet] 2.5 mg PO Q12 11/23/17 Atorvastatin Calcium [Lipitor 20 mg Tablet] 20 mg PO QHS 11/23/17 Cyanocobalamin (Vitamin B-12) [Vitamin B12] 1,000 mcg PO DAILY 11/23/17 Docusate Sodium [Colace 100 mg Capsule] 100 mg PO BID 11/23/17 Donepezil HCl [Aricept 5 mg Tablet] 10 mg PO QHS 11/23/17 Gabapentin [Neurontin 100 mg Capsule] 100 mg PO Q8 11/23/17 Ipratropium/Albuterol Sulfate [Duoneb 3 ml Ampul] 3 ml NEB RTQ6HP PRN 11/23/17 Magnesium Oxide [Mag-Ox 400 mg Tablet] 400 mg PO Q8 11/23/17 Olopatadine HCl [Pataday] 2.5 ml OU DAILY 11/23/17 Ondansetron HCl [Zofran 4 mg Tablet] 1 tab PO Q8HP PRN 11/23/17 Pantoprazole Sodium [Protonix] 40 mg PO DAILY 11/23/17 Quetiapine Fumarate [Seroquel 25 mg Tablet] 25 mg PO QHS 11/23/17 Sennosides [Senna] 8.6 mg PO QHS 11/23/17 Amlodipine Besylate [Norvasc 5 mg Tablet] 5 mg PO QHS tablet 12/01/17 Cefuroxime Axetil [Ceftin 250 mg Tablet] 250 mg PO Q12 5 Days #10 tablet 12/01/17 Hydrocodone/Acetaminophen [[place] 10-325 mg Tablet] 1 tab PO Q4HP PRN #3 tablet 12/01/17 Lorazepam [Ativan 0.5 mg Tablet] 0.5 mg PO Q6HP PRN #3 tablet 12/01/17 Multivitamin [Tab-A-[place] (Multiple Vitamin) Tablet] 1 tab PO DAILY tablet 12/01/17 Nystatin [Mycostatin 500,000 Unit/5 ml Susp Udcup] 500,000 unit PO QID udc 12/01/17 Tiotropium [place] [Spiriva Handihaler 5 Cap/Kit (18 Mcg/Cap)] 1 cap IH DAILY 30 Days #1 kit 12/01/17 Allergies/Adverse Reactions: Penicillins Allergy (Verified 10/31/18 05:30) Review of Systems Constitutional: ABSENT: chills, fever(s), headache(s), weight gain, weight loss Eyes: ABSENT: visual disturbances Ears: ABSENT: hearing changes Cardiovascular: ABSENT: chest pain, dyspnea on exertion, edema, orthropnea, palpitations Respiratory: ABSENT: cough, hemoptysis Gastrointestinal: ABSENT: abdominal pain, constipation, diarrhea, hematemesis, hematochezia, nausea, vomiting Genitourinary: ABSENT: dysuria, hematuria Musculoskeletal: ABSENT: joint swelling Integumentary: ABSENT: rash, wounds Neurological: ABSENT: abnormal gait, abnormal speech, confusion, dizziness, focal weakness, syncope Psychiatric: ABSENT: anxiety, depression, homidical ideation, suicidal ideation Endocrine: ABSENT: cold intolerance, heat intolerance, polydipsia, polyuria Hematologic/Lymphatic: ABSENT: easy bleeding, easy bruising Physical Exam Vital Signs: Temp Pulse Resp BP Pulse Ox 98.9 F 77 21 H 175/92 H 90 L 10/31/18 05:30 10/31/18 04:35 10/31/18 05:00 10/31/18 04:46 10/31/18 05:00 Intake & Output 10/29/18 10/30/18 10/31/18 11:59 11:59 11:59 Weight 133 kg General appearance: PRESENT: no acute distress, well-developed, well-nourished Head exam: PRESENT: atraumatic, normocephalic Eye exam: PRESENT: conjunctiva pink, EOMI, PERRLA. ABSENT: scleral icterus Ear exam: PRESENT: normal external ear exam Mouth exam: PRESENT: moist, tongue midline Neck exam: ABSENT: carotid bruit, JVD, lymphadenopathy, thyromegaly Respiratory exam: PRESENT: clear to auscultation woo. ABSENT: rales, rhonchi, wheezes Cardiovascular exam: PRESENT: RRR. ABSENT: diastolic murmur, rubs, systolic murmur Pulses: PRESENT: normal dorsalis pedis pul Vascular exam: PRESENT: normal capillary refill GI/Abdominal exam: PRESENT: normal bowel sounds, soft. ABSENT: distended, guarding, mass, organolmegaly, rebound, tenderness Rectal exam: PRESENT: deferred Extremities exam: PRESENT: full ROM. ABSENT: calf tenderness, clubbing, pedal edema Neurological exam: PRESENT: alert, awake, oriented to person, oriented to place, oriented to time, oriented to situation, CN II-XII grossly intact. ABSENT: motor sensory deficit Psychiatric exam: PRESENT: appropriate affect, normal mood. ABSENT: homicidal ideation, suicidal ideation Skin exam: PRESENT: dry, intact, warm. ABSENT: cyanosis, rash Results Laboratory Results: 10/31/18 05:00 10/31/18 05:00 10/31/18 10/31/18 10/31/18 05:00 05:00 05:00 WBC 9.3 RBC 4.73 Hgb 15.1 Hct 46.4 MCV 98 H MCH 31.9 MCHC 32.5 RDW 13.5 Plt Count 155 Seg Neutrophils % 84.7 H Lymphocytes % 10.1 L Monocytes % 5.0 Eosinophils % 0.0 Basophils % 0.2 Absolute Neutrophils 7.9 Absolute Lymphocytes 0.9 Absolute Monocytes 0.5 Absolute Eosinophils 0.0 Absolute Basophils 0.0 Carbonic Acid 2.52 H HCO3/H2CO3 Ratio 16:1 ABG pH 7.31 L ABG pCO2 83.7 H* ABG pO2 105.6 H ABG HCO3 40.8 H ABG O2 Saturation 97.1 ABG Base Excess 10.4 FiO2 100% Sodium 140.8 Potassium 4.1 Chloride 97 L Carbon Dioxide 39 H Anion Gap 5 BUN 15 Creatinine 0.41 L Est GFR ( Amer) > 60 Est GFR (Non-Af Amer) > 60 Glucose 186 H Calcium 9.5 10/31/18 05:00 Troponin I < 0.012 Impressions: Chest X-Ray 10/31/18 04:40 IMPRESSION: 1. Small left lower lobar pneumonia, atelectasis, or scar less compared with prior appearance from an exam dated November 2017. 2. Mild central edema pattern. Assessment & Plan - Diagnosis (1) COPD exacerbation Is this a current diagnosis for this admission?: Yes Plan: Albuterol, Atrovent, incentive spirometry, Flonase and prednisone (2) Hypercapnic respiratory failure Qualifiers: Chronicity: acute on chronic Qualified Code(s): J96.22 - Acute and chronic respiratory failure with hypercapnia Is this a current diagnosis for this admission?: Yes Plan: Likely morbid obesity hypoventilation syndrome with hypercapnic respiratory failure, trial of BiPAP in cervical extension. Avoiding narcotics and sedat maite causing respiratory depression. Repeat ABG in consideration of intubation. BiPAP while asleep (3) Hypertension Is this a current diagnosis for this admission?: Yes Plan: Outpatient regiment with hydralazine - Time Time Spent: 50 to 70 Minutes - Inpatient Certification Medical Necessity: Need Close Monitoring Due to Risk of Patient Decompensation
[2018-10-31] MEDS ORDERED: DEXTROSE 50%-WATER 25 GM/50 ML DISP.SYRIN IV PRN ×2 (07:10)
[2018-10-31] MEDS ORDERED: DEXTROSE 40% GEL 15 GM TUBE PO PRN ×2 (07:10)
[2018-10-31] MEDS ORDERED: GLUCAGON,HUMAN RECOMB 1 MG INJ IM PRN (07:10)
[2018-10-31] MEDS ORDERED: HYDRALAZINE HCL INJ/PF 20 MG/1 ML SDV IV PRN (07:10)
[2018-10-31] MEDS ORDERED: IPRATROPIUM/ALBUTEROL 0.5-2.5 MG/3 ML AMPUL NEB PRN (07:10)
[2018-10-31] MEDS: IPRATROPIUM/ALBUTEROL 0.5-2.5 MG/3 ML AMPUL NEB SCH ×3 (08:02→19:36)
[2018-10-31 08:56] LABS: CREATINE KINASE MB 0.89 ng/mL (<4.55)
[2018-10-31 09:00] LABS: TROPONIN I < 0.012 ng/mL
[2018-10-31 09:48] LABS: ARTERIAL BLOOD BASE EXCESS 8.5 mmol/L; ARTERIAL BLOOD H2CO3 2.37 mmol/L (1.05-1.35); ARTERIAL BLOOD HCO3 38.2 mmol/L (20-24); ARTERIAL BLOOD O2 SATURATION 93.7 % (94-98); ARTERIAL BLOOD PO2 78.1 mmHg (80-100); ARTERIAL BLOOD TOTAL CO2 40.6 mmol/L (21-25)
[2018-10-31 09:55] LABS: ARTERIAL BLOOD FIO2 50%
[2018-10-31 09:56] LABS: ARTERIAL BLOOD PCO2 78.6 mmHg (35-45)
[2018-10-31] MEDS ORDERED: PREDNISONE 20 MG TABLET PO SCH (10:00)
[2018-10-31] MEDS ORDERED: LEVOFLOXACIN 750 MG/D5W RTU 750 MG/150 ML RTUPB IV SCH (10:00)
--- NOTE | 2018-10-31 12:45 | EKG REPORT ---
SEVERITY:- ABNORMAL ECG - SINUS RHYTHM RBBB AND LAFB PROBABLE LEFT VENTRICULAR HYPERTROPHY : Confirmed by: Karen Knox MD 31-Oct-2018 12:44:23
[2018-10-31] MEDS: APIXABAN 2.5 MG TABLET PO SCH ×2 (13:26→21:43)
[2018-10-31] MEDS: DOXYCYCLINE HYCLATE 100 MG TABLET PO SCH ×2 (13:26→21:43)
[2018-10-31] MEDS: GABAPENTIN 100 MG CAPSULE PO SCH ×2 (13:26→21:43)
[2018-10-31] MEDS: DOCUSATE SODIUM 100 MG CAPSULE PO SCH ×2 (13:26→18:01)
[2018-10-31] MEDS: FLUTICASONE NASAL SPRAY 50 MCG/SPRY 120 SPRAY/16 GM NASL SCH ×3 (13:33→21:44)
[2018-10-31] MEDS ORDERED: HEPARIN SOD (PORCINE) 5,000 UNIT/ML 1 ML SYRINGE SUBCUT SCH (14:00)
[2018-10-31] MEDS: INSULIN LISPRO 100 UNIT/ML 3 ML VIAL SUBCUT PRN (18:03)
[2018-10-31 19:33] LABS: ARTERIAL BLOOD BASE EXCESS 10.7 mmol/L; ARTERIAL BLOOD H2CO3 1.81 mmol/L (1.05-1.35); ARTERIAL BLOOD HCO3 37.5 mmol/L (20-24); ARTERIAL BLOOD O2 SATURATION 91.4 % (94-98); ARTERIAL BLOOD PH 7.41 (7.35-7.45); ARTERIAL BLOOD PO2 61.9 mmHg (80-100); ARTERIAL BLOOD TOTAL CO2 39.4 mmol/L (21-25)
[2018-10-31 19:34] LABS: ARTERIAL BLOOD FIO2 5L
--- NOTE | 2018-10-31 19:45 | Progress Note ---
Provider Note Provider Note: admitted after midnight. seen on rounds today. please see H&P for full A&P admitted for COPD exacerbation and acute respiratory failure- on bipap now. repeat ABG in the AM showed mild improvement. was continued on Bipap all day - will take it and see how she does. will draw ABG now and see if there's any improvement. continue aggressive pulm hygiene today nurse mentioned that son states patient is DNR at nursing facility - will get nursing to fax papers and review them
[2018-10-31] MEDS: PREDNISONE 20 MG TABLET PO SCH (21:43)
[2018-10-31] MEDS: ATORVASTATIN CALCIUM 20 MG TABLET PO SCH (21:43)
[2018-10-31] MEDS: ACETAMINOPHEN 325 MG TABLET PO PRN (21:50)
[2018-11-01] MEDS: IPRATROPIUM/ALBUTEROL 0.5-2.5 MG/3 ML AMPUL NEB SCH ×4 (02:20→20:18)
[2018-11-01] MEDS: LANSOPRAZOLE 30 MG TAB.RAP.DR PO SCH (05:06)
[2018-11-01] MEDS: GABAPENTIN 100 MG CAPSULE PO SCH ×3 (05:06→22:51)
[2018-11-01 05:29] LABS: ABSOLUTE LYMPHOCYTES (AUTO) 0.7 10^3/uL (0.5-4.7); ABSOLUTE MONOCYTES (AUTO) 0.3 10^3/uL (0.1-1.4); ABSOLUTE NEUT (AUTO) 6.3 10^3/uL (1.7-8.2); BASOPHILS % (AUTO) 0.3 % (0-2); EOSINOPHILS % (AUTO) 0.6 % (0-6); HEMOGLOBIN 13.1 g/dL (12.0-15.5); LYMPHOCYTES % (AUTO) 8.9 % (13-45); MEAN CORPUSCULAR HEMOGLOBIN 32.4 pg (27.0-33.4); MEAN CORPUSCULAR HGB CONC 33.6 g/dL (32.0-36.0); MEAN CORPUSCULAR VOLUME 96 fl (80-97); MONOCYTES % (AUTO) 4.7 % (3-13); PLATELET COUNT 170 10^3/uL (150-450); RED BLOOD COUNT 4.05 10^6/uL (3.72-5.28); RED CELL DISTRIBUTION WIDTH 13.5 % (11.5-14.0); SEGMENTED NEUTROPHILS % (AUTO) 85.5 % (42-78); TOTAL CELLS COUNTED % (AUTO) 100 %; WHITE BLOOD COUNT 7.3 10^3/uL (4.0-10.5)
[2018-11-01 05:39] LABS: BLOOD UREA NITROGEN 22 mg/dL (7-20); CALCIUM 9.2 mg/dL (8.4-10.2); GLUCOSE 164 mg/dL (75-110); POTASSIUM 4.9 mmol/L (3.6-5.0)
[2018-11-01 05:46] LABS: CARBON DIOXIDE 38 mmol/L (22-30); CHLORIDE 97 mmol/L (98-107); SODIUM 138.7 mmol/L (137-145)
[2018-11-01 05:48] LABS: ANION GAP 4 (5-19)
[2018-11-01 08:12] LABS: ARTERIAL BLOOD BASE EXCESS 11.6 mmol/L; ARTERIAL BLOOD H2CO3 1.57 mmol/L (1.05-1.35); ARTERIAL BLOOD HCO3 37.2 mmol/L (20-24); ARTERIAL BLOOD O2 SATURATION 91.8 % (94-98); ARTERIAL BLOOD PCO2 52.3 mmHg (35-45); ARTERIAL BLOOD PH 7.47 (7.35-7.45); ARTERIAL BLOOD PO2 59.4 mmHg (80-100); ARTERIAL BLOOD TOTAL CO2 38.8 mmol/L (21-25)
[2018-11-01 08:13] LABS: ARTERIAL BLOOD FIO2 3L
[2018-11-01] MEDS: FLUTICASONE NASAL SPRAY 50 MCG/SPRY 120 SPRAY/16 GM NASL SCH ×2 (09:33→22:50)
[2018-11-01] MEDS: DOCUSATE SODIUM 100 MG CAPSULE PO SCH ×2 (09:33→17:27)
[2018-11-01] MEDS: PREDNISONE 20 MG TABLET PO SCH ×2 (09:34→14:05)
[2018-11-01] MEDS: DOXYCYCLINE HYCLATE 100 MG TABLET PO SCH ×2 (09:34→22:50)
[2018-11-01] MEDS: APIXABAN 2.5 MG TABLET PO SCH ×2 (09:34→22:51)
[2018-11-01] MEDS: ACETAMINOPHEN 325 MG TABLET PO PRN ×2 (09:57→23:41)
[2018-11-01] MEDS ORDERED: LEVOFLOXACIN 750 MG/D5W RTU 750 MG/150 ML RTUPB IV SCH (10:00)
--- NOTE | 2018-11-01 11:49 | PDOC PROGRESS REPORT ---
Subjective Progress Note for:: 11/01/18 Subjective:: states she feels better now- she's off the Bipap at this time- she's on 3L O2- tells me that she's on 2L O2 at baseline. denies chest pain, SOB, abdominal pain, n/v or dizziness Reason For Visit: COPD EXACERBATION HYPERCAPNIC RESP FAILURE,URI Physical Exam Vital Signs: Temp Pulse Resp BP Pulse Ox 98.7 F 84 18 156/62 H 93 11/01/18 08:27 11/01/18 08:27 11/01/18 08:27 11/01/18 08:27 11/01/18 08:27 Pulse Oximeter Continuous Start: 10/31/18 07:10 Freq: RTQ4 Status: Active Protocol: Document 11/01/18 07:57 HCR (Rec: 11/01/18 09:43 [id number] [id number]) Pulse Oximetry Assessment Oxygen Saturation (92-100) 92 Oxygen Flow Rate (L/min) 3 Oxygen Delivery Method Nasal Cannula Equipment Usage Equipment in Use Continuous Pulse Oximeter 24 Hour Charge Charge Now Continuous SpO2 Machine # 5 Intake & Output 10/31/18 11/01/18 11/02/18 06:59 06:59 06:59 Intake Total 187 Balance 187 Weight 293 lb 3.437 oz 282 lb 6.594 oz 282 lb 6.594 oz General appearance: PRESENT: no acute distress, morbidly obese Head exam: PRESENT: atraumatic, normocephalic Eye exam: PRESENT: EOMI, PERRLA. ABSENT: scleral icterus Ear exam: PRESENT: normal external ear exam Mouth exam: PRESENT: tongue midline Neck exam: ABSENT: tracheal deviation Respiratory exam: PRESENT: decreased breath sounds - bilaterally, symmetrical, wheezes - diffuse wheezing bilaterally Cardiovascular exam: PRESENT: +S1, +S2 Pulses: PRESENT: +1 pedal pulses bilateral GI/Abdominal exam: PRESENT: normal bowel sounds, soft. ABSENT: tenderness Extremities exam: PRESENT: pedal edema Neurological exam: PRESENT: alert, awake, oriented to person, oriented to place, oriented to time, oriented to situation, CN II-XII grossly intact Skin exam: PRESENT: dry, warm Results Laboratory Results: 11/01/18 04:47 11/01/18 04:47 10/31/18 11/01/18 11/01/18 19:20 04:47 04:47 WBC 7.3 RBC 4.05 Hgb 13.1 Hct 39.0 MCV 96 MCH 32.4 MCHC 33.6 RDW 13.5 Plt Count 170 Seg Neutrophils % 85.5 H Lymphocytes % 8.9 L Monocytes % 4.7 Eosinophils % 0.6 Basophils % 0.3 Absolute Neutrophils 6.3 Absolute Lymphocytes 0.7 Absolute Monocytes 0.3 Absolute Eosinophils 0.0 Absolute Basophils 0.0 Carbonic Acid 1.81 H HCO3/H2CO3 Ratio 20:1 ABG pH 7.41 ABG pCO2 60.0 H ABG pO2 61.9 L ABG HCO3 37.5 H ABG O2 Saturation 91.4 L ABG Base Excess 10.7 FiO2 5L Sodium 138.7 Potassium 4.9 Chloride 97 L Carbon Dioxide 38 H Anion Gap 4 L BUN 22 H Creatinine 0.44 L Est GFR ( Amer) > 60 Est GFR (Non-Af Amer) > 60 Glucose 164 H Calcium 9.2 11/01/18 07:50 WBC RBC Hgb Hct MCV MCH MCHC RDW Plt Count Seg Neutrophils % Lymphocytes % Monocytes % Eosinophils % Basophils % Absolute Neutrophils Absolute Lymphocytes Absolute Monocytes Absolute Eosinophils Absolute Basophils Carbonic Acid 1.57 H HCO3/H2CO3 Ratio 23:1 ABG pH 7.47 H ABG pCO2 52.3 H ABG pO2 59.4 L ABG HCO3 37.2 H ABG O2 Saturation 91.8 L ABG Base Excess 11.6 FiO2 3L Sodium Potassium Chloride Carbon Dioxide Anion Gap BUN Creatinine Est GFR ( Amer) Est GFR (Non-Af Amer) Glucose Calcium 10/31/18 10/31/18 10/31/18 05:00 07:58 07:58 Creatine Kinase 22 L CK-MB (CK-2) 0.89 Troponin I < 0.012 < 0.012 Impressions: Chest X-Ray 10/31/18 04:40 IMPRESSION: 1. Small left lower lobar pneumonia, atelectasis, or scar less compared with prior appearance from an exam dated November 2017. 2. Mild central edema pattern. Assessment & Plan - Diagnosis (1) Acute respiratory failure with hypoxia and hypercapnia Is this a current diagnosis for this admission?: Yes (2) COPD exacerbation Is this a current diagnosis for this admission?: Yes - Plan Summary Plan Summary: acute respiratory failure w/ hypoxia and hypercapnia- was on bipap on admission- it was weaned off yesterday- i believe she used it again last night- her pCO2 has come down very nicely- but i have a feeling she's a chronic retainer and might be at her baseline. she does use 2L Oxygen at home at baseline per patient so i think we are improving overall as she's on 3L now. would like to kepe her Sao2 >89% on oxygen. i think she would also benefit from an overnight pulse ox study to qualify her for DEE. given her BMI she might have obesity related hypoventilation syndrome. she would probably will need CPAP when she sleeps. COPD exacerbation- she received levaquin and doxy on arrival- i have d/c'd levaquin and now on doxy for possibly emphysema related bronchitis. will monitor for now. will consider stopping Abx if she remains afebfile. c/w aggressive pulm hygiene. checking her home meds i do not see any maintenance med ications- will start her on symbicort and scheduled neb treatments. atrial fib- c/w jo[place]ínquis. i do not see a rate control med in her chart- i have asked nursing to get appropriate med list from [facility]- currently she is rate controlled
[2018-11-01] MEDS: BUDESONIDE/FORMOTEROL 160-4.5 MCG 60 PUFF/6 GM MDI IH SCH ×2 (14:17→22:50)
[2018-11-01] MEDS: ATORVASTATIN CALCIUM 20 MG TABLET PO SCH (22:50)
[2018-11-02] MEDS: IPRATROPIUM/ALBUTEROL 0.5-2.5 MG/3 ML AMPUL NEB SCH ×4 (01:27→20:32)
[2018-11-02] MEDS: GABAPENTIN 100 MG CAPSULE PO SCH ×3 (05:30→21:42)
[2018-11-02] MEDS: LANSOPRAZOLE 30 MG TAB.RAP.DR PO SCH (05:30)
[2018-11-02] MEDS: APIXABAN 2.5 MG TABLET PO SCH ×2 (09:56→21:42)
[2018-11-02] MEDS: PREDNISONE 20 MG TABLET PO SCH (09:56)
[2018-11-02] MEDS: DOXYCYCLINE HYCLATE 100 MG TABLET PO SCH ×2 (09:56→21:42)
[2018-11-02] MEDS: DOCUSATE SODIUM 100 MG CAPSULE PO SCH ×2 (09:58→17:38)
[2018-11-02] MEDS: FLUTICASONE NASAL SPRAY 50 MCG/SPRY 120 SPRAY/16 GM NASL SCH ×2 (09:59→21:43)
[2018-11-02] MEDS: BUDESONIDE/FORMOTEROL 160-4.5 MCG 60 PUFF/6 GM MDI IH SCH ×2 (09:59→21:43)
[2018-11-02] MEDS: ACETAMINOPHEN 325 MG TABLET PO PRN (10:05)
--- NOTE | 2018-11-02 14:54 | PDOC PROGRESS REPORT ---
Subjective Reason For Visit: COPD EXACERBATION HYPERCAPNIC RESP FAILURE,URI Physical Exam Vital Signs: Temp Pulse Resp BP Pulse Ox 98.6 F 76 18 148/63 H 96 11/02/18 12:37 11/02/18 13:36 11/02/18 13:36 11/02/18 12:37 11/02/18 13:36 Pulse Oximeter Continuous Start: 10/31/18 07:10 Freq: RTQ4 Status: Active Protocol: Document 11/02/18 12:39 JDR (Rec: 11/02/18 12:43 JDR [id number]) Pulse Oximetry Assessment Oxygen Saturation (92-100) 99 Oxygen Delivery Method Bi-pap Fraction of Inspired Oxygen (FIO2) 40 Equipment Usage Equipment in Use Continuous SpO2 Machine # 5 Intake & Output 11/01/18 11/02/18 11/03/18 06:59 06:59 06:59 Intake Total 187 473 100 Balance 187 473 100 Weight 282 lb 6.594 oz 295 lb 6.711 oz Results Laboratory Results: 11/01/18 04:47 11/01/18 04:47 10/31/18 10/31/18 10/31/18 05:00 07:58 07:58 Creatine Kinase 22 L CK-MB (CK-2) 0.89 Troponin I < 0.012 < 0.012 Impressions: Chest X-Ray 10/31/18 04:40 IMPRESSION: 1. Small left lower lobar pneumonia, atelectasis, or scar less compared with prior appearance from an exam dated November 2017. 2. Mild central edema pattern. Assessment & Plan - Diagnosis (1) Acute respiratory failure with hypoxia and hypercapnia Is this a current diagnosis for this admission?: Yes (2) COPD exacerbation Is this a current diagnosis for this admission?: Yes - Plan Summary Plan Summary: acute respiratory failure w/ hypoxia and hypercapnia- was on bipap on admission- it was weaned off yesterday but today she was back on it again this morning- per nursing she requested it as she felt short of breath although her SaO2 >92%- she was placed back on it- her pCO2 is better-but i have a feeling she's a chronic retainer and might be at her baseline. she does use 2L Oxygen at [facility] at baseline per patient so i think we are improving overall as she's on 3L now. would like to keed her Sao2 >89% on oxygen. I ordered overnight pulse ox but i do not see results- given her BMI she might have obesity related hypoventilation syndrome. she would probably will need CPAP when she sleeps- if she meeds criteria then we can set this up back at [facility] COPD exacerbation- she received levaquin and doxy on arrival- i have d/c'd levaquin and now on doxy for possibly emphysema related bronchitis. will mon itor for now. will consider stopping Abx if she remains afebfile. c/w aggressive pulm hygiene. checking her home meds i do not see any maintenance medications- I have started her on symbicort and scheduled neb treatments. she's on 5 days of prednisone 60mg burst dose. atrial fib- c/w eliquis. i do not see a rate control med in her chart- i have asked nursing to get appropriate med list from [facility]- currently she is rate controlled disposition- she should be ready for discharge in 1-2 day if her oxygen requirement remains stable
[2018-11-02] MEDS: INSULIN LISPRO 100 UNIT/ML 3 ML VIAL SUBCUT PRN (17:58)
[2018-11-02] MEDS: ATORVASTATIN CALCIUM 20 MG TABLET PO SCH (21:42)
[2018-11-03] MEDS: IPRATROPIUM/ALBUTEROL 0.5-2.5 MG/3 ML AMPUL NEB SCH ×3 (01:23→14:01)
[2018-11-03] MEDS: LANSOPRAZOLE 30 MG TAB.RAP.DR PO SCH (05:30)
[2018-11-03] MEDS: GABAPENTIN 100 MG CAPSULE PO SCH ×2 (05:30→13:34)
[2018-11-03] MEDS: DOCUSATE SODIUM 100 MG CAPSULE PO SCH ×2 (09:20→17:00)
[2018-11-03] MEDS: DOXYCYCLINE HYCLATE 100 MG TABLET PO SCH (09:23)
[2018-11-03] MEDS: PREDNISONE 20 MG TABLET PO SCH (09:23)
[2018-11-03] MEDS: BUDESONIDE/FORMOTEROL 160-4.5 MCG 60 PUFF/6 GM MDI IH SCH (09:23)
[2018-11-03] MEDS: FLUTICASONE NASAL SPRAY 50 MCG/SPRY 120 SPRAY/16 GM NASL SCH (09:23)
[2018-11-03] MEDS: APIXABAN 2.5 MG TABLET PO SCH (09:23)
[2018-11-03] MEDS: ACETAMINOPHEN 325 MG TABLET PO PRN (09:31)
--- NOTE | 2018-11-03 12:22 | TRANSFER SUMMARY E ---
Transfer Summary NAME: PAN BUTLER : 1940 AGE: 78Y ADMITTED: 10/31/2018 TRANSFERRED: 11/03/2018 CODE STATUS: DO NOT RESUSCITATE/DO NOT INTUBATE. PRIMARY CARE PROVIDER: Dr. Marley DISCHARGE DIAGNOSES: Includes: 1. Chronic obstructive pulmonary disease exacerbation. 2. Acute on chronic hypoxemic and hypercapnic respiratory failure. 3. Atrial fibrillation. 4. Chronic anticoagulation with Eliquis. 5. Obstructive sleep apnea. 6. Morbid obesity with a BMI of 50.7. 7. Hyperlipidemia. 8. Vascular dementia. DISCHARGE MEDICATIONS: Include: 1. Tylenol 1 g p.o. q. 8 hours p.r.n. 2. Eliquis 2.5 mg p.o. q. 12 hours. 3. Lipitor 20 mg p.o. q. hour of sleep. 4. Vitamin B12 1000 mcg p.o. daily. 5. Colace 100 mg p.o. b.i.d. 6. Aricept 100 mg p.o. q. hour of sleep. 7. Neurontin 300 mg p.o. q. 8 hours. 8. Magnesium oxide 400 mg p.o. q. 8 hours. 9. Pataday 1 drop both eyes daily. 10. Zofran 1 tablet p.o. q. 8 hours p.r.n. 11. Protonix 40 mg p.o. daily. 12. Seroquel 25 mg p.o. q. hour of sleep. 13. Senna 8.6 mg p.o. q. hour of sleep. 14. Symbicort HFA 2 puffs inhalation q. 12 hours. 15. Doxycycline 100 mg p.o. q. 12 hours, 14 tablets, 0 refills. 16. Flonase 2 sprays nasally q. 12 hours. 17. Duonebs 1 neb q. 6 hours p.r.n. 18. Multivitamin 1 tablet p.o. daily. 19. Prednisone 60 mg taper for 21 tabs. Take 6 tabs 11/04 then 5 tabs 11/05, 4 tabs 11/06, 3 tabs 11/07, 2 tabs 11/08, 1 tab 11/09. EQUIPMENT: 1. O2 at 5 L nasal cannula continuous. 2. CPAP at night with settings of 5 L of O2 with a CPAP/PEEP setting of 10. 3. Flutter q. 15 minutes while awake or as tolerated. 4. Incentive spirometry every 15 minutes while awake and as tolerated. DIET: As tolerated. ACTIVITY: As tolerated. CONDITION: Fair. DIAGNOSTICS: Lab values are as follows: Hematology obtained on 11/01/2018: WBCs are 7.3, hemoglobin is 13.1, hematocrit is 30.0, platelet count is 170,000. Chemistry obtained on 11/01/2017: Sodium is 138, potassium 4.9, chloride is 97, carbon dioxide 38, BUN 22, creatinine is 0.44, glucose 164, calcium is 9.2. Troponin is 0.012. Blood cultures obtained on 10/31/2018 reveals no growth. EKG obtained on 10/31/2018 reveals sinus rhythm. PHYSICAL EXAMINATION: GENERAL: On examination, the patient is a frail 78-year-old female who is awake, alert. She is oriented to person, place, time, and situation. She does not appear to be distressed. VITAL SIGNS: Temperature is 98.3, pulse 74, respirations 16, blood pressure 132/59, oxygen saturation is 94% on 5 L nasal cannula. SKIN: Pale, dry. No rash. She is not diaphoretic. HEENT: Pupils reactive. Mucous membranes are moist. CARDIOVASCULAR SYSTEM: Heart is regular. CHEST: Symmetrical, unlabored. Poor inspiratory effort. ABDOMEN: Soft. No area of focal tenderness. EXTREMITIES: No overt edema. PSYCHIATRIC: Appropriate affect, pleasant mood. HISTORY OF PRESENT ILLNESS: The patient is a 78-year-old female with a past medical history of morbid obesity, prolonged immobility as well a oxygen-dependent COPD. The patient presented to the emergency department from [facility] where she dwells chronically due to shortness of breath. Upon EMS arrival, the patient was found to be hypoxic and was noted to have chest pain. The patient's chest x-ray was essentially unremarkable and appeared chronic in comparison a year ago. The patient was started on Solu-Medrol, albuterol and Atrovent, was placed on BiPAP initially and wheezing did improve. However, given that the patient did have significant hypoxia, she was referred to the hospitalist for admission and management. HOSPITAL COURSE: The patient was admitted to [facility]. The patient was covered with steroids, nebs, and was also started on a course of doxycycline. The patient had significant improvement of symptoms. The patient was started on CPAP at night with significant improvement in her daytime sleepiness and does need additional CPAP at night. The patient is in agreeance with this plan. Given the patient most likely has an obesity hypoventilation syndrome, have recommended avoiding narcotics or sedatives, which may cause respiratory depression. The patient appears to be back to her baseline and is ready for transfer back. Time spent on this discharge including assessment, plan, physical examination, patient education, review of records, and resource alignment is 35 minutes. DICTATING PHYSICIAN: TORI ATKINSON NP [id number] PHY#: [id number] ID: [id number] JOB#: [id number] ACCT: [id number] cc:TORI ATKINSON NP > MTDD
[2018-11-03 12:50] VITALS: BP 144/55
== END 2018-11-03 18:17 | DRG 190 ==
LOC: ER 04:35 → EH 07:11 → 3W 08:50
PROVIDERS: ADMIT Internal Medicine; ATTEND Internal Medicine
PROC: 5A09357 Assistance with Respiratory Ventilation, Less than 24 Consecutive Hours, Continuous Positive Airway Pressure (ICD-10-PCS; principal; 2018-10-31)
PROC: 3E0F3GC Introduction of Other Therapeutic Substance into Respiratory Tract, Percutaneous Approach (ICD-10-PCS; 2018-10-31)
DX: J44.1 Chronic obstructive pulmonary disease with (acute) exacerbation (principal); J96.22 Acute and chronic respiratory failure with hypercapnia; J96.21 Acute and chronic respiratory failure with hypoxia; Z68.43 Body mass index [BMI] 50.0-59.9, adult; E66.2 Morbid (severe) obesity with alveolar hypoventilation; I69.354 Hemiplegia and hemiparesis following cerebral infarction affecting left non-dominant side; I45.2 Bifascicular block; Z99.81 Dependence on supplemental oxygen; I48.0 Paroxysmal atrial fibrillation; F01.50 Vascular dementia, unspecified severity, without behavioral disturbance, psychotic disturbance, mood disturbance, and anxiety; E11.9 Type 2 diabetes mellitus without complications; E78.5 Hyperlipidemia, unspecified; K21.9 Gastro-esophageal reflux disease without esophagitis; I10 Essential (primary) hypertension; F32.9 Major depressive disorder, single episode, unspecified; Z79.01 Long term (current) use of anticoagulants; Z82.49 Family history of ischemic heart disease and other diseases of the circulatory system
CPT/HCPCS: 36415; 36600; 71045; 80048; 82550; 82553; 82803; 82962; 84484; 85025; 87040; 93005; 93010; 94660; 94667; 94668; 94762; 94799; 99285; J1815; J1956; J2930; J3490; J7512; J7620